=== PATIENT | male | born 1945 | race Caucasian/White ===

== ENCOUNTER 2021-10-09 08:35 | Outpatient (REF) | payer OTHER, BC, SELFPAY ==
--- NOTE | ~2021-10-09 | MR_ITS ---
EXAMINATION: MR BRAIN WITHOUT CONTRAST CLINICAL INFORMATION: Muscle weakness. COMPARISON: None available. TECHNIQUE: MRI of the brain was obtained using routine sequences without contrast. FINDINGS: Moderately motion degraded exam. No focal restricted diffusion is demonstrated to suggest acute or subacute cerebral ischemia. No evidence of acute or chronic hemorrhagic products on heme-sensitive imaging. Basal ganglia mineralization. Scattered periventricular and deep white matter T2 FLAIR hyperintensities consistent with mild underlying microangiopathy. Proportional prominence of the ventricles and sulcal spaces without evidence of obstructive hydrocephalus. No abnormal mass effect. No midline shift. Normal appearance of the pituitary gland. Normal positioning of the cerebellar tonsils. Normal arterial and venous vascular flow voids are present. Normal, homogeneous marrow signal. Moderate degenerative spondyloarthropathy of the visualized upper cervical spine. Mucous retention cyst within the left maxillary sinus. Mild mucosal thickening of the remaining paranasal sinuses. No signal abnormalities within the mastoids. Bilateral lens extractions. MR/MR head/brain wo con IMPRESSION: 1. No acute intracranial abnormalities. 2. Mild underlying microangiopathy and generalized cerebral volume loss.
== END 2021-10-09 08:36 | disposition home or self-care (01) ==
LOC: HO.MRI 08:35
PROVIDERS: PCP Internal Medicine; Visit Provider Internal Medicine
DX: M62.81 Muscle weakness (generalized) (principal)
CPT/HCPCS: 70551

== ENCOUNTER 2022-02-21 06:49 | Outpatient (REF) | payer OTHER, BC, SELFPAY ==
[2022-02-26 14:46] LABS: Metanephrine, Free 81 pg/mL (<=57); Normetanephrines, Free 198 pg/mL (<=148); Total Metanephrine, Free 279 pg/mL (<=205)
== END 2022-02-21 06:50 | disposition home or self-care (01) ==
LOC: HO.LAB 06:49
PROVIDERS: PCP Internal Medicine; Visit Provider Internal Medicine
DX: R61 Generalized hyperhidrosis (principal)
CPT/HCPCS: 36415; 83835

== ENCOUNTER 2022-07-17 16:32 | Outpatient (REF) | payer OTHER, BC, SELFPAY ==
--- NOTE | ~2022-07-17 | MR_ITS ---
EXAMINATION: MR CERVICAL SPINE WITHOUT CONTRAST CLINICAL INFORMATION: Cervical myelopathy. COMPARISON: CT scan of the cervical spine 11/24/2019. TECHNIQUE: MRI of the cervical spine was obtained using routine sequences without contrast. FINDINGS: VERTEBRAL BODIES AND PARASPINAL SOFT TISSUES: There is a mild dextroscoliosis. There is reversal of the normal cervical lordosis, and there is a mild anterolisthesis of C4 on C5. There is marked narrowing of intervertebral disc height at C5-C6 and C6-C7 and there are degenerative endplate contour changes at these levels with minimal edematous signal. These findings appear similar compared to prior imaging. There is mild loss of vertebral body height of T5 and T6, demonstrated on prior imaging. No new Fractures are demonstrated. There is decreased T1 signal from the C5 and C6 vertebrae, corresponding to sclerosis seen on the prior CT scan. There is edematous signal noted in the right C5-C6 facets. Overall, marrow signal is homogenous. The regional soft tissues are unremarkable. CERVICOMEDULLARY JUNCTION AND VISUALIZED POSTERIOR FOSSA: The craniocervical and posterior fossa structures are normal. Accounting for artifact, spinal cord signal appears normal. SPINAL LEVELS: C2-C3: There is severe right and moderate left facet arthropathy. There is a small soft disc protrusion posteriorly in the midline. There is no cord compression or central stenosis. There are small uncovertebral osteophytes, and there is mild bilateral foraminal narrowing. C3-C4: There is fusion of the left C3-C4 facets and there are degenerative changes of the right C3-C4 facet joint. There appears to be partial fusion of the posterior bodies of C3 and C4 comment demonstrated on the CT scan. Posterior disc contour is normal in is no cord compression or central stenosis. There are uncovertebral osteophytes and there is moderate right and mild left foraminal narrowing. C4-C5: There is severe bilateral facet arthropathy. There is a shallow posterior soft disc protrusion which is slightly more prominent on the right but there is no cord compression or central stenosis. There are uncovertebral osteophytes and there is moderate right and mild left foraminal narrowing. C5-C6: There is moderate to severe bilateral facet arthropathy. There is a broad-based posterior disc osteophyte complex which is more prominent centrally and on the left with effacement of CSF around the cord with mild cord compression and there is mild to moderate central stenosis. There are uncovertebral osteophytes and there is severe left and moderate severe right foraminal narrowing. C6-C7: There is moderate bilateral facet arthropathy. There is a broad-based posterior disc osteophyte complex which effaces CSF around the cord, and there is mild central stenosis. There are uncovertebral osteophytes bilaterally and there is severe right and moderate left foraminal narrowing. C7-T1: The facet joints appear normal bilaterally. Posterior disc contour is normal. There is no spinal cord compression or central stenosis. The neural foramina are patent bilaterally. MR/MR cervical spine wo con IMPRESSION: 1. At C5-C6 there is facet arthropathy and there is a broad-based posterior disc osteophyte complex. There is mild cord compression and there is mild to moderate central stenosis. There is severe left and moderate to severe right foraminal narrowing. 2. At C6-C7 there is facet arthropathy and there is a broad-based posterior disc osteophyte complex. There is mild central stenosis. There is severe right and moderate left foraminal narrowing. 3. At C3-C4 there is fusion of the left C3-C4 facets and there are degenerative changes of the right facet joint. There is moderate right and mild left foraminal narrowing. There is no cord compression or central stenosis. 4. At C4-C5 there is severe bilateral facet arthropathy. There is no cord compression or central stenosis. There is moderate right and mild left foraminal narrowing.
== END 2022-07-17 16:33 | disposition home or self-care (01) ==
LOC: HO.MRI 16:32
PROVIDERS: PCP Internal Medicine; Visit Provider Nurse Practitioner Family
DX: G95.9 Disease of spinal cord, unspecified (principal)
CPT/HCPCS: 72141

== ENCOUNTER 2023-05-03 10:08 | Outpatient (REF) | payer OTHER, BC, SELFPAY ==
[2023-05-03 13:26] LABS: MANUAL DIFF FLAG NO
[2023-05-03 13:41] LABS: Basophils Percent Auto 0.3 % (0-2); Eosinophils Absolute Auto 0.8 X10*3/uL (0.0-0.4); Eosinophils Percent Auto 13.6 % (0-4); Hematocrit 37.9 % (42.0-52.0); Hemoglobin 12.3 g/dl (14.0-18.0); Imm Gran Abs Auto 0.04 X10*3/uL (0.00-0.03); Imm Gran Pct Auto 0.7 % (0.0-0.4); Lymphocytes Absolute Auto 1.3 X10*3/uL (1.2-4.9); Lymphocytes Percent Auto 21.3 % (20-40); Mean Corpuscular HGB Conc 32.5 g/dl (31.0-36.0); Mean Corpuscular Hemoglobin 31.4 pg (27.0-33.0); Mean Corpuscular Volume 96.7 fL (80.0-98.0); Mean Platelet Volume 9.7 fL (9.4-12.4); Monocytes Absolute Auto 0.3 X10*3/uL (0.1-1.2); Monocytes Percent Auto 5.3 % (2-11); Neutrophils Absolute Auto 3.5 x10*3/uL (2.0-8.3); Neutrophils Percent Auto 58.8 % (45-73); Platelet Count 287 X10*3/uL (160-400); Red Blood Count 3.92 X10*6/uL (4.60-5.80); Red Cell Distribution Width 13.5 % (11.0-16.0); White Blood Count 5.9 X10*3/uL (4.8-10.8)
[2023-05-03 14:08] LABS: Alanine Aminotransferase 10 U/L (0-40); Albumin Level 3.8 g/dL (3.5-5.0); Alkaline Phosphatase 72 U/L (39-117); Anion Gap 12 (12-20); Aspartate Amino Transferase 20 U/L (5-37); Bilirubin Total 0.7 mg/dL (0.0-1.0); Blood Urea Nitrogen 16 mg/dL (9-16); Calcium 9.4 mg/dL (8.4-10.2); Carbon Dioxide 26 mmol/L (22-29); Chloride 105 mmol/L (96-108); Estimated Glomerular Filt Rate 55; Glucose Random 146 mg/dL (60-115); Magnesium 2.1 mg/dL (1.6-2.6); Potassium 3.9 mmol/L (3.3-5.1); Sodium 139 mmol/L (135-145); Total Protein 6.5 g/dL (6.5-8.0)
[2023-05-03 14:14] LABS: Insulin 69 uU/mL (2-29); Vitamin D 25-OH Total 22.4 ng/mL (>30)
[2023-05-03 14:30] LABS: Vitamin B12 209 pg/mL (200-900)
[2023-05-04 08:04] LABS: C Peptide 10.24 ng/mL (0.80-3.85)
== END 2023-05-03 10:09 | disposition home or self-care (01) ==
LOC: HO.MANLDS 10:08
PROVIDERS: Visit Provider Internal Medicine
DX: I12.9 Hypertensive chronic kidney disease with stage 1 through stage 4 chronic kidney disease, or unspecified chronic kidney disease (principal); N18.9 Chronic kidney disease, unspecified; E16.2 Hypoglycemia, unspecified; E53.8 Deficiency of other specified B group vitamins
CPT/HCPCS: 36415; 80053; 82306; 82607; 83525; 83735; 84681; 85025

== ENCOUNTER 2023-05-24 08:24 | Outpatient (REF) | payer OTHER, BC, SELFPAY ==
[2023-05-24 14:02] LABS: Estimated Average Glucose 111 mg/dL; Hemoglobin A1c % 5.5 % (<6.0)
[2023-05-24 14:41] LABS: Insulin 28 uU/mL (2-29)
== END 2023-05-24 08:25 | disposition home or self-care (01) ==
LOC: HO.MANLDS 08:24
PROVIDERS: Visit Provider Internal Medicine
DX: E88.819 Insulin resistance, unspecified (principal)
CPT/HCPCS: 36415; 83036; 83525

== ENCOUNTER 2023-07-05 14:48 | Outpatient (AMB) | payer OTHER, BC, SELFPAY ==
--- NOTE | 2023-07-05 14:59 | A.SPINEOV_ITS ---
Intake Intake Visit Reasons: Neck pain Intake Note: Mr. Paniagua is here today c/o neck pain. 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 He is accompanied by his who works as a nurse in our preop department here at [facility]. He comes in today with a chief complaint of neck pain, lightheadedness, and constant headaches. He reports a pertinent medical history of a C4-5 and C5-6 posterior decompression completed [address] Tolentino at [facility]. In addition to this, he reports associated symptoms of balance issues and difficulty walking. He reports that he has no radiation of pain down either of his upper extremities, and that his pain is well localized to his neck near the surgical incision site. He has no numbness, tingling, burning, or significant weakness that he is aware of. He has been to physical therapy twice since his previous surgeries with Dr. Tolention and reports it was not helpful at all. He also states that he had cortisone injections in his neck completed at [facility] with little to no relief from these injections. He is now at the point where his headaches, lightheadedness, and neck pain is significantly impacting his activities of daily living and causing him distress throughout the day. He would like to pursue a surgical intervention for these issues. PMH: History of bladder cancer with TURP procedure. History of heart attack 5 years ago 2 stents placed. BPH, hypertension. Social hx: Patient does not smoke, reports no substance use Medications: Baby aspirin, amlodipine, carvedilol, Flomax. Allergies: Anaphylaxis reaction to bee stings. Physical exam: The patient has 5/5 strength in his upper and lower extremities. His sensation is grossly intact. His reflexes are 2+ intact. He ambulates with a somewhat antalgic gait but overall is able to walk well. He rises from a seated position without difficulty. (-) Agrawal's, (-) clonus. Imaging review: MRI of the cervical spine completed at [facility] shows evidence of a posterior laminectomy from C3 to C6. There is severe degenerative disc disease at C5-6 and C6-7. The vertebral body at C5 and C6 both appear to be significantly degenerated. There is severe left-sided foraminal stenosis at C5-6 and mild-moderate central canal stenosis at C6-7. There also appears to be a possible synovial cyst impinging on the C6 nerve root on the left. There is no notable cord signal change Impression: Toro is a pleasant 78-year-old male who comes in today with a chief complaint of neck pain with accompanying neurological symptoms which he reports are headaches, lightheadedness, and loss of balance. He reports no radiculopathy down either of his upper extremities. His MRI shows severe loss of disc height and degeneration at C5-6 and C6-7. He also has some significant stenosis on the left but has no symptoms to accompany this. His x-ray imaging from today does not reveal any spondylolisthesis. His neck pain very well could be coming from the vertebral body degeneration described above at C5 and C6, accompanied by the significant loss of disc height. I will discuss his MRI findings and clinical history with Dr. Roach next week when we review cases and will call the patient back with a answer regarding a surgical intervention to help mitigate his symptoms. We did discuss what both in ACDF and cervical corpectomy would entail if either were to be offered by Dr. Roach. We did discuss that if a surgical intervention was offered it would be to address his pain, and would likely have no benefit in regards to his headaches or lightheadedness. Thank you for allowing us to care for your patient. The total time spent with this visit with this patient was MRI minutes reviewing history, physical exam, 45 imaging review, and implementation of treatment plan or further diagnostic testing Adryan Roach MD,PhD [facility] Orders: Orders XR cervical spine 4V Today M54.2 - Cervicalgia Coding Level of Care Code New Pt Level 4 (01570) Diagnoses Cervicalgia M54.2
== END 2023-07-05 16:06 | disposition home or self-care (01) ==
PROVIDERS: PCP Internal Medicine; Visit Provider Physician Assistant
DX: M54.2 Cervicalgia (principal)
CPT/HCPCS: 99204

== ENCOUNTER 2023-07-05 14:48 | Outpatient (REF) | payer OTHER, BC, SELFPAY ==
--- NOTE | ~2023-07-05 | XR_ITS ---
EXAMINATION: XR CERVICAL SPINE CLINICAL INFORMATION: Cervicalgia COMPARISON: Cervical spine 09/10/2019 TECHNIQUE: AP, lateral, lateral flexion and extension and open-mouth odontoid and Fuchs views were obtained. FINDINGS: There is no fracture. Prevertebral soft tissues are within normal limits. There is marked disc space narrowing of C5-C6 and C6-C7 with marginal osteophyte formation. There is approximately 4 mm anterior subluxation of C4 respect to C5. This is without significant change on flexion views though decreases slightly on extension views. There is facet arthropathy C4-C7 bilaterally. XR/XR cervical spine 4V IMPRESSION: 1. Marked degenerative disc disease at C5-C6 and C6-C7. 2. Approximately 4 mm anterior subluxation of C4 respect to C5, as discussed above.
== END 2023-07-05 14:49 | disposition home or self-care (01) ==
LOC: HO.HOSX 14:48
PROVIDERS: PCP Internal Medicine; Visit Provider Physician Assistant
DX: M54.2 Cervicalgia (principal)
CPT/HCPCS: 72050

== ENCOUNTER 2023-08-06 07:35 | Outpatient (REF) | payer OTHER, MEDICARE, SELFPAY ==
--- NOTE | ~2023-08-06 | CT_ITS ---
CT CERVICAL SPINE WITHOUT CONTRAST HISTORY: Prior laminectomy cervicalgia TECHNIQUE: CT images of the cervical spine were acquired without intravenous contrast. This CT examination was performed using dose optimization techniques as appropriate, variously including the following: *Automated exposure control *Adjustment of mA and/or kV according to patient size (this includes techniques or standardized protocols for targeted exams where dose is matched to indication/reason for exam; i.e. extremities or head) *Use of iterative reconstruction technique DLP: 442.3 mGy-cm COMPARISON: MRI cervical spine 07/17/2022 FINDINGS: Severe hypertrophic degenerative changes across the anterior atlantodental interval with significant osseous remodeling and thinning of the anterior arch of C1. Reversal of the lower cervical lordosis. Stable grade 1 anterolisthesis at C4-C5, slight retrolisthesis at C2-C3, and trace anterolisthesis at C3-C4. Stable mild chronic height loss and anterior wedging of the C5 vertebral body. Prominent eburnation of the C5 and C6 vertebral bodies and to a lesser extent along the C7 upper endplate with multilevel scattered Schmorl's nodes and pneumatocysts. Stable disc height loss, most pronounced and severe at C5-C6 and C6-C7 and moderate to severe at C3-C4 and C2-C3. Osseous fusion across the C3-C4 disc space. Please note canal patency is not well assessed on this examination due to inherent limitations of CT without intrathecal contrast. Within these limitations, multilevel degenerative changes are unchanged with level by level detail are as follows: C2-C3: Small central disc osteophyte protrusion, disc osteophyte complex, bilateral uncovertebral joint hypertrophy, severe right and milder left facet arthrosis. No spinal canal stenosis. Patent neural foramina. C3-C4: Disc osteophyte complex with bilateral uncovertebral joint hypertrophy and severe bilateral facet arthrosis with associated ankylosis on the left and chronic height loss of the left C3 articular pillar. No spinal canal stenosis. Mild right greater than left neural foraminal narrowing. C4-C5: Uncovered posterior disc/pseudodisc bulge, bilateral uncovertebral spurring, and severe bilateral facet arthrosis. No spinal canal stenosis. Mild right without significant left neural foraminal encroachment. C5-C6: Disc osteophyte complex with bilateral uncovertebral joint hypertrophy and bilateral facet arthrosis. Mild spinal canal stenosis with mass effect along the ventral cord, severe left and moderate right neural foraminal stenosis. C6-C7: Prior left C6 laminectomy. Disc osteophyte complex with bilateral uncovertebral joint hypertrophy and bilateral facet arthrosis. Mild spinal canal, severe right and moderate to severe left neural foraminal stenosis. C7-T1: Artifact through this level limits diagnostic assessment. No bony spinal canal or foraminal stenosis. Patent neural foramina. No significant abnormalities of the paraspinal musculature. Biapical pleural-parenchymal scarring. The visualized intracranial structures are normal. Mucosal disease in the right maxillary sinus. Cerumen within the left EAC. Calcific plaque of the bilateral carotid bifurcations. Retropharyngeal course of the distal right common carotid and proximal right internal carotid arteries. Elongated and ossified styloid processes can be correlated clinically for signs of Newhalen syndrome. CT/CT cervical spine wo IV con IMPRESSION: 1. Multilevel cervical spondylosis is unchanged compared to MRI from 07/17/2022. Canal patency is not well assessed on this examination due to inherent limitations of CT without intrathecal contrast. Within these limitations, there is mild spinal canal stenosis at C5-C6 greater than C6-C7 with mass effect along the ventral cord at C5-C6. Multilevel the great neural foraminal narrowing. 2. Elongated and ossified styloid processes can be correlated clinically for signs of [place]halen syndrome.
== END 2023-08-06 07:36 | disposition home or self-care (01) ==
LOC: HO.CT 07:35
PROVIDERS: PCP Internal Medicine; Visit Provider Physician Assistant
DX: M54.2 Cervicalgia (principal)
CPT/HCPCS: 72125

== ENCOUNTER 2023-08-27 14:46 | Outpatient (AMB) | payer OTHER, MEDICARE, SELFPAY ==
--- NOTE | 2023-08-27 14:58 | A.SPINEOV_ITS ---
Intake Visit Reasons: Discuss sx Intake Note: Mr. Paniagua is here today to Discuss sx. 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 Paniagua comes in today for a subsequent follow-up visit after having his CT scan completed. His CT scan imaging shows severe degeneration of C5-C7 with the worst two levels being C5 & C6. He has quite a bit of anterior osteophyte growth as well. Surprisingly, these levels are not auto fused although there is severe degenerative disc disease causing [id number] between these vertebral bodies. I reviewed this imaging with Dr. Roach who was willing to offer the patient a cervical corpectomy to address his neck pain. He estimates that there is a 60-70% chance of pain relief if we do decide to pursue this surgery. I informed Toro again that this surgery would not be meant to address his neurological symptoms or his balance related issues. This information was related to the patient, and we discussed the severity of his symptoms. At this time the patient states he feels as though he can not go on living the way that he is currently living, and feels as though something must be done. I met with both him and his during this visit, and answered all their questions to the best of my ability. We thoroughly reviewed his CT scan, discussed his previous surgery, and also looked at his MRI imaging. I do believe that there is a high likelihood that the cervical vertebral bodies at the above-mentioned levels are pain generators given the severe degeneration noted on various forms of imaging. He will discuss the possibility of having the surgery completed with his and call the office to get back to us food like to book this surgery. Total amount of time spent in this visit was 20 minutes in discussion of symptoms, CT scan imaging results and subsequent plan of care. Adryanryland Roach MD,PhD [facility] Coding Level of Care Code Est Pt Level 3 (62025) Diagnoses Cervicalgia M54.2
== END 2023-08-27 15:50 | disposition home or self-care (01) ==
PROVIDERS: PCP Internal Medicine; Visit Provider Physician Assistant
DX: M54.2 Cervicalgia (principal)
CPT/HCPCS: 99213

== ENCOUNTER → 2023-08-27 14:46 | Outpatient (BNVA) | payer OTHER, MEDICARE, SELFPAY | PROVIDERS: PCP Internal Medicine; Visit Provider Physician Assistant ==

== ENCOUNTER 2024-01-23 09:15 | Outpatient (REF) | payer OTHER, MEDICARE, SELFPAY ==
[2024-01-23 10:43] LABS: Cholesterol 150 mg/dL (<200); HDL Cholesterol 37 mg/dL (>40); LDL Cholesterol Calculated 96 mg/dL (<100); Triglycerides 88 mg/dL (<150)
== END 2024-01-23 09:16 | disposition home or self-care (01) ==
LOC: HO.LAB 09:15
PROVIDERS: PCP Internal Medicine; Visit Provider Internal Medicine Cardiovascular Disease
DX: Z79.899 Other long term (current) drug therapy (principal)
CPT/HCPCS: 36415; 80061

== ENCOUNTER 2024-05-05 08:16 | Outpatient (REF) | payer OTHER, MEDICARE, SELFPAY ==
[2024-05-05 08:30] LABS: MANUAL DIFF FLAG NO
[2024-05-05 09:23] LABS: Basophils Absolute Auto 0.1 X10*3/uL (0.0-0.2); Basophils Percent Auto 0.7 % (0-2); Eosinophils Percent Auto 14.7 % (0-4); Hematocrit 36.6 % (42.0-52.0); Hemoglobin 12.3 g/dl (14.0-18.0); Imm Gran Abs Auto 0.03 X10*3/uL (0.00-0.03); Imm Gran Pct Auto 0.4 % (0.0-0.4); Lymphocytes Absolute Auto 1.4 X10*3/uL (1.2-4.9); Lymphocytes Percent Auto 20.6 % (20-40); Mean Corpuscular HGB Conc 33.6 g/dl (31.0-36.0); Mean Corpuscular Hemoglobin 31.6 pg (27.0-33.0); Mean Corpuscular Volume 94.1 fL (80.0-98.0); Mean Platelet Volume 9.7 fL (9.4-12.4); Monocytes Absolute Auto 0.5 X10*3/uL (0.1-1.2); Neutrophils Percent Auto 56.6 % (45-73); Platelet Count 288 X10*3/uL (160-400); Red Blood Count 3.89 X10*6/uL (4.60-5.80); Red Cell Distribution Width 13.7 % (11.0-16.0)
[2024-05-05 09:51] LABS: Alanine Aminotransferase 11 U/L (0-40); Albumin Level 4.1 g/dL (3.5-5.0); Alkaline Phosphatase 81 U/L (39-117); Anion Gap 10 (12-20); Aspartate Amino Transferase 23 U/L (5-37); Bilirubin Total 0.5 mg/dL (0.0-1.0); Blood Urea Nitrogen 18 mg/dL (9-16); Calcium 9.5 mg/dL (8.4-10.2); Carbon Dioxide 28 mmol/L (22-29); Chloride 108 mmol/L (96-108); Estimated Glomerular Filt Rate 55; Glucose Random 101 mg/dL (60-115); Potassium 4.7 mmol/L (3.3-5.1); Sodium 141 mmol/L (135-145); Total Protein 7.1 g/dL (6.5-8.0)
[2024-05-05 10:11] LABS: Insulin 6 uU/mL (2-29)
[2024-05-05 10:33] LABS: Estimated Average Glucose 114 mg/dL; Hemoglobin A1C 119.4631 umol/L; Hemoglobin A1c % 5.6 % (<6.0)
[2024-05-06 05:43] LABS: C Peptide 2.53 ng/mL (0.80-3.85)
[2024-05-09 23:38] LABS: Proinsulin 4.1 pmol/L (< OR = 18.8)
== END 2024-05-05 08:17 | disposition home or self-care (01) ==
LOC: HO.LAB 08:16
PROVIDERS: PCP Internal Medicine; Visit Provider Internal Medicine
DX: E16.2 Hypoglycemia, unspecified (principal)
CPT/HCPCS: 36415; 80053; 83036; 83525; 84206; 84681; 85025

== ENCOUNTER 2024-08-20 09:48 | Outpatient (AMB) | payer OTHER, MEDICARE, SELFPAY ==
--- NOTE | 2024-08-20 09:51 | MHC.OFFVIS ---
Vital Signs 08/20/24 09:52 Height 6 ft Weight 167 lb 5.294 oz BMI 22.7 BP 134/62 Blood Pressure Location Lt brachial Position Sitting Pulse 105 H Pulse Source Pulse Oximeter Pulse Oximetry (%) 85 L Oxygen Delivery Method Room Air Intake Visit Reasons: Hypoglycemia Intake Note: New patient externally referred for Hypoglycemia. Battery Tester Field Required: No Accompanied by: Self / Same As Patient Allergies bee pollen [BEE STINGS] Allergy (Severe, Unverified 08/20/24 09:55) ANAPHYLAXIS acetaminophen [From VICODIN] Allergy (Mild, Unverified 08/20/24 09:55) ITCHY hydrocodone [From VICODIN] Allergy (Mild, Unverified 08/20/24 09:55) ITCHY oxycodone [From PERCOCET] Allergy (Mild, Unverified 08/20/24 09:55) ITCHY Medication List - Last Reconciled 08/20/24 by Anabell Whitaker MD amlodipine 5 mg PO DAILY aspirin 81 mg PO DAILY carvedilol 3.125 mg PO BID tamsulosin mg PO HPI Comments Details: 79-year-old male here today for initial evaluation of hypoglycemia. Since 3-4 years, Complaining of spells of lightheadedness , paresthesias in hands, floaters , increased diaphoresis , clammy, Blurry vision, seen eye doctor, exam was unremarkable. munches on chocolates, salt, episodes get better in 20 mins. Patient brought in log book reviewed : variable blood sugars recorded by meter but a few episodes of hypoglycemia noted Apr 2024 at May 30 one episode of 50. other few episodes of blood sugars in 40s to 50s here and there, but mostly otherwise in 60s to 70s. Unrelated to food intake or fasting, can happen any time of the day. Active and doing well otherwise. No history of liver disease CKD stage 3a, from HTN? EGFR 55. 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 Quit tobacco use at age 27 smokes marijuana Retired from [employer] job Past medical history CAD s/p PCI 2021 HTN Prediabetes Bladder cancer s.p chemo and surgery with history of recurrence , now in remission Past surgical history Back surgeries hiatal Hernia repair Left hip replacement Knee repairs Bladder cancer resection Family history Father : CAD Sister : breast cancer Physical exam General: sitting comfortably in no acute distress HEENT: normocephalic/atraumatic, moist oral mucosa Neck: supple Cardiac: normal heart sounds Pulm: normal breath sounds B/L, no added breath sounds Abd: not distended, no tenderness Extremities: no edema, no signs of myxedema Neuro: AAO x3, Speech: normal, no facial droop, moving all 4 extremities Skin: no rash Laboratory Tests 04/27/18 09/10/19 05/03/23 08:41 10:13 10:12 Random Glucose 112 104 146 H Estimat Average Glucose Hemoglobin A1c % 05/24/23 05/05/24 08:26 08:28 Random Glucose 101 Estimat Average Glucose 111 114 Hemoglobin A1c % 5.5 5.6 Laboratory Tests 02/21/22 06:54 Plasma Free Metaneph 81 H Plasma Free Normeta 198 H Plas Total Metaneph 279 H REPLACED BY [facility] Medical History (Updated 08/20/24 @ 10:49 by Anabell Whitaker MD) Hypoglycemia Elevated plasma metanephrines Physical Exam Vital Signs: Last Vital Signs Pulse 105 H 08/20/24 09:52 BP 134/62 08/20/24 09:52 Pulse Ox 85 L 08/20/24 09:52 Oxygen Delivery Method Room Air 08/20/24 09:52 BMI result Body Mass Index 22.7 Assessment & Plan Assessment & Plan (1) Elevated plasma metanephrines: Code(s): R79.89 - Other specified abnormal findings of blood chemistry Category: Medical Plan: See below (2) Hypoglycemia: Code(s): E16.2 - Hypoglycemia, unspecified Category: Medical Plan: 79-year-old male with a history of CAD status post PCI, history of bladder cancer status post resection and chemotherapy, hypertension who is here today to establish care for concerns of hypoglycemia. He has been having spells of lightheadedness/dizziness, diaphoresis, clamminess, palpitations with no relation to food intake, and no relation to timing, for the past 3-4 years. He has a blood glucose meter, no history of diabetes mellitus, and he has been recording his episodes and some blood glucose readings were noted to be low in the 40s and 50s, otherwise during some episodes blood sugars were normal. He does report improvement within 20 minutes after he eats sugary and salty snacks. 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 He has had hypoglycemia panel done in April 2024 however his blood sugar was normal so that is not useful. He is not on any medications that cause hypoglycemia. No history of liver disease. He does have CKD stage IIIA per his last EGFR of 55, likely due to history of hypertension? He is not on any insulin, denies any exposure to diabetic medications at home. Though his is a nurse. No alcohol use. He is otherwise healthy. He also has mildly elevated plasma metanephrine and normetanephrine levels from 2021, we will repeat these. I have also asked him to perform an overnight fast after supper/dinner and do blood work in the morning. Safety instructions provided. Hypoglycemia education done. Plan: -ordered plasma metanephrine normetanephrine levels. -ordered fasting hypoglycemia panel -continue to log episodes with blood glucose readings and bring glucometer and log to next appointment -asked him to try frequent small meals with higher focus on protein intake to see if he has a improvement in episodes Plan I spent 60 minutes in reviewing the record, seeing the patient and documenting in the medical record. Orders: Orders Metanephrines, Plasma Today R79.89 - Other specified abnormal findings of blood chemistry Adrenocorticotropic Hormone 08/24/24 E16.2 - Hypoglycemia, unspecified Insulin 08/24/24 E16.2 - Hypoglycemia, unspecified Insulinoma associated 2 aatb 08/24/24 E16.2 - Hypoglycemia, unspecified Insulin Auto Antibody 08/24/24 E16.2 - Hypoglycemia, unspecified Insulin Growth Factor 2 08/24/24 E16.2 - Hypoglycemia, unspecified C Peptide 08/24/24 E16.2 - Hypoglycemia, unspecified Basic Metabolic Panel 08/24/24 E16.2 - Hypoglycemia, unspecified Glucose Random 08/24/24 E16.2 - Hypoglycemia, unspecified Cortisol Random 08/24/24 E16.2 - Hypoglycemia, unspecified Proinsulin 08/24/24 E16.2 - Hypoglycemia, unspecified TSH reflex Free T4 08/24/24 E16.2 - Hypoglycemia, unspecified Hypoglycemic Panel 08/24/24 E16.2 - Hypoglycemia, unspecified Patient Instructions: DO blood work today Maintain a log of your episodes including time, meal taken before or after , symptoms Please bring this log along with your glucometer to next appointment Please do a set of fasting blood work by stopping food intake after dinner and then doing blood work at 8 or 9 AM Check your fingerstick in the car prior to blood work , if not less than 65, please either wait for sugar to become lower or as soon as symtoms okay Please take your partner/friend to drive you to the lab, dont drive yourself Keep your glucose tablets or candy with you to correct the hypoglycemia one the blood is drawn Stop eating candies when not hypoglycemic, incorporate small frequent meals in yourdiet concentrating on getting more protein Correction of hypoglycemia when blood sugar is less than 70 Rule of 15 Treatment for Hypoglycemia (Low blood sugar) If your blood glucose is low (70 and below)*, follow the steps below to treat: Eat or drink something from the list below equal to 15 grams of carbohydrate (carb). Rest for 15 minutes Re-check your blood glucose. If it is still low, (below 70), repeat step 1 above. If your next meal is more than an hour away, you will need to eat one carbohydrate choice as a snack to keep your blood glucose from going low again. If you can't figure out why you have low blood glucose, call your healthcare provider, as your medicine may need to be adjusted. Always carry something with you to treat an insulin reaction. Use food from the list below. Foods equal to One Carbohydrate Choice (15 grams of carbohydrate): 3 Glucose tablets or 4 Dextrose tablets 4 ounces of fruit juice 5-6 ounces (about 1/2 can) of regular soda such as Coke or Pepsi 7-8 gummy or regular Life Savers 1 Tbsp. of sugar or jelly NOTE: If your blood sugar is less than 50, double the portion above for a total of 30 gm. Carbohydrate. Follow meal plan of 45-60 g of consistent carbohydrates at 3 meals each day and 15 g of carbohydrate at 1-2 snacks each day. Coding Level of Care Code New Pt Level 5 (12935) Diagnoses Elevated plasma metanephrines R79.89 Hypoglycemia E16.2 Time Spent (min) 60
[2024-08-20 09:52] VITALS: BP 134/62; PULSE 105; O2SAT 85; BMI 22.7
--- OUTSIDE RECORDS SUMMARY | 2024-08-20 11:22 | XMS_ITS | Data Portability ---
Author Organization [facility] Home Service Address [address] [place] [address] Assessment Encounter Date Assessment Date Assessment LastModified by Organization Details LastModified Time 08/25/2021 08/25/2021 [id number] [place] [id number] (FEATHER MAKER) [facility] MODERATE MUST MEET 2 OUT OF 3 ELEMENTS: PROBLEMS, DATA OR RISK ELEMENT 1: PROBLEMS ADDRESSED 1 OR MORE CHRONIC ILLNESS WITH EXACERBATION OR 2 OR MORE STABLE CHRONIC ILLNESSES OR 1 UNDIAGNOSED NEW PROBLEM OR 1 ACUTE ILLNESS W/SYMPTOMS OR 1 ACUTE COMPLICATED INJURY ELEMENT 2: DATA MUST MEET 1 OF 3 CATEGORIES CATEGORY 1: REVIEW OF PRIOR EXTERNAL NOTES, REVIEW OF RESULTS, ORDERING OF EACH TEST, ASSESSMENT REQUIRING INDEPENDENT HISTORIAN OR CATEGORY 2: INDEPENDENT INTERPRETATION OF TESTS BY ANOTHER PHYSICIAN OR SPECIALIST OR CATEGORY 3: DISCUSSION OF MGT OR TEST INTERPRETATION W/EXTERNAL PHYSICIAN OR SPECIALIST ELEMENT 3: RISK RISK OF COMPLICATIONS AND/OR MORBIDITY OR MORTALITY OF PATIENT MANAGEMENT PROVIDER MUST THOROUGHLY DOCUMENT EACH ELEMENT THAT IS COVERED Not available 08/25/2021 15:45:39 01/26/2022 01/26/2022 [id number] [place] [id number] (FEATHER MAKER) [facility] MODERATE MUST MEET 2 OUT OF 3 ELEMENTS: PROBLEMS, DATA OR RISK ELEMENT 1: PROBLEMS ADDRESSED 1 OR MORE CHRONIC ILLNESS WITH EXACERBATION OR 2 OR MORE STABLE CHRONIC ILLNESSES OR 1 UNDIAGNOSED NEW PROBLEM OR 1 ACUTE ILLNESS W/SYMPTOMS OR 1 ACUTE COMPLICATED INJURY ELEMENT 2: DATA MUST MEET 1 OF 3 CATEGORIES CATEGORY 1: REVIEW OF PRIOR EXTERNAL NOTES, REVIEW OF RESULTS, ORDERING OF EACH TEST, ASSESSMENT REQUIRING INDEPENDENT HISTORIAN OR CATEGORY 2: INDEPENDENT INTERPRETATION OF TESTS BY ANOTHER PHYSICIAN OR SPECIALIST OR CATEGORY 3: DISCUSSION OF MGT OR TEST INTERPRETATION W/EXTERNAL PHYSICIAN OR SPECIALIST ELEMENT 3: RISK RISK OF COMPLICATIONS AND/OR MORBIDITY OR MORTALITY OF PATIENT MANAGEMENT PROVIDER MUST THOROUGHLY DOCUMENT EACH ELEMENT THAT IS COVERED Not available 01/26/2022 15:45:50 04/26/2023 04/26/2023 [id number] [place] [id number] (FEATHER MAKER) : MDM LOW MUST MEET 2 OF 3 ELEMENTS: PROBLEMS, DATA OR RISK ELEMENT 1: PROBLEMS ADDRESSED (LOW): 2 OR MORE SELF-LIMITED OR MINOR PROBLEMS OR 1 STABLE CHRONIC ILLNESS OR 1 ACUTE UNCOMPLICATED ILLNESS OR INJURY ELEMENT 2: DATA TO BE REVISED AND ANALYZED (LOW) MUST MEET 1 OF 2 CATEGORIES: CATEGORY 1. REVIEW OF PRIOR EXTERNAL NOTES/RESULTS, ORDERING OF TEST(S) CATEGORY 2. ASSESSMENT REQUIRING INDEPENDENT HISTORIAN(S) INCLUDE WHO THE HISTORIAN IS AND RELATION TO PT AND WHY PT IS UNABLE TO GIVE COMPLETE HISTORY ELEMENT 3: RISK (LOW) RISK OF COMPLICATIONS AND/OR MORBIDITY OR MORTALITY OF PATIENT MANAGEMENT PROVIDER MUST THOROUGHLY DOCUMENT ALL OF THE ELEMENTS COVERED Not available 04/26/2023 10:59:28 Plan of Treatment Reminders Order Date Submit Date Provider Last Modified By Organization Details Last Modified Time Details Appointments None recorded. Lab magnesium, serum or plasma 2022 023 [facility], [address] [place] [address], [address], 3 11:05:17 CMP, serum or plasma 2022 023 [facility], [address] [place] [address], [address], 4 11:10:32 vitamin D, 25-hydroxy , total, serum 2022 023 [facility], [address] [place] [address], [address], 3 10:09:14 vitamin B12, serum 2022 023 [facility], [address] [place] [address], [address], 3 11:05:18 insulin, serum 2022 023 [facility], [address] [place] [address], [address], 3 11:05:18 BMP, serum or plasma 2022 023 [facility], [address] [place] [address], [address], 3 11:05:17 CBC w/ auto diff 2022 023 [facility], [address] [place] [address], [address], 3 11:05:17 C-peptide, serum 2022 023 [facility], [address] [place] [address], [address], 3 11:05:17 metanephri ne, fractionat ed, free, serum or plasma 2021 022 [facility], [address] [place] [address], [address], 2 15:50:33 Referral ophthalmol ogist referral - absolutely strange visual acuity issues 2021 022 [email or web address] 10 Peg Harrison MD, [address], [address], 2 08:21:30 Procedures None recorded. Surgeries None recorded. Imaging None recorded. Medication Orders None recorded. Patient TargetsNo targets recorded. 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 [address] [place], [address], 10/16/2021 09:22:52 06/03/19 24 05/30/2023 CT, abdom en + pelvi s, w/wo contr ast No observ ation record ed. [facility] - Stat [address] [place], [address], 06/04/2023 06:43:09 06/07/19 24 05/30/2023 CT, abdom en + pelvi s, w/wo contr ast No observ ation record ed. [address], [place], [address], 06/09/2023 08:25:56 07/08/19 24 07/05/2023 XR, cervi yasmin spine , 1 view No observ ation record ed. [address] [place], [address], 07/08/2023 15:41:36 08/16/19 24 08/06/2023 CT, cervi yasmin spine , w/o contr ast No observ [facility] [address] [place], [address], 08/17/2023 10:31:14 Result Notes None recorded. Problems Name Problem SNOMED Code Status Onset Date Resolution Date Notes Provider Name and Address Organization Details Recorded Time Benign prostatic hyperplas ia 383989169 Active 2017 JERONIMO [facility] 8 08:25:22 Allergic rhinitis 04301702 Active 2017 Jinny crews [facility] 8 08:25:59 Coronary arteriosc lerosis 00678437 [facility] 08[facility]08 History of angioplas ty 132012165 Active 2017 Jinny crews [facility] 8 08:26:14 Hypertens bettye disorder 32742834 Active 2017 Jinny crews [facility] 8 08:26:18 Hyperchol esterolem ia 07690559 Active 2017 Jinny crews [facility] 8 08:26:25 Kidney stone 23264978 Active 2017 Jinny crews [facility] 8 08:26:30 Steatosis of liver 318322513 Active 2017 Jinny crews [facility] 8 08:26:38 Alcoholis m 7307927 Active 2017 quit 12 years ago KODY FRENCH [address] [place] [address], [place], [address], [facility] 0 12:08:56 Trammell's esophagus 118339654 Active 2017 Jinny crews [facility] 8 08:26:56 Gastroeso phageal reflux disease 177208725 Active 2017 Jinny crews [facility] 8 08:27:04 Arthritis 1538680 Active 2017 Jinny crews [facility] 8 08:27:11 Cobalamin deficienc y 128533200 Active 2017 Jinny crews [facility] 8 08:27:18 Vertigo 118359480 Active 2017 Jinny crews [facility] 8 08:27:24 Migraine 87118850 Active 2017 Jinny crews [facility] 8 08:27:30 Chronic kidney disease 016333412 Active 2017 Jinny crews [facility] 8 08:27:46 History of tobacco use 639914395252 3 Active 2017 quit at age 28 Jinny crews [facility] 8 08:28:[address] segment elevation myocardia l infarctio n 742229493 Active 2018 S/P BRYANT [address], [address], [facility] 9 15:51:48 Malignant neoplasm of urinary bladder 068070356 Active [address], [address], [facility] 9 15:54:22 Costal chondriti s 54386466 Active 2018 Aguilar Taylor [address], [address], [facility] 9 12:37:35 Ataxia 41504517 Active 2021 Aguilar Taylor DO [address] [place] [address], [address], [facility] 2 15:44:40 Excessive sweating 26715954 Active 2021 Aguilar Taylor DO [address] [place] [address], [address], [facility] 2 15:44:57 Dizziness 177711067 Active 2021 Aguilar Taylor DO [address] [place] [address], [address], [facility] 2 15:45:47 Muscle weakness of limb 588401711 Active 2021 Aguilar Taylor DO [address] [place] [address], [address], [facility] 2 15:46:07 Tremor 24351141 Active 2021 Aguilar BridgettSouleymane Taylor, DO [address] [place] [address], [address], [facility] 2 15:45:59 Reduced visual acuity 36406685 Active 2021 Aguilar BridgettSouleymane Taylor, DO [address] [place] [address], [address], [facility] 2 15:47:13 Hypoglyce alejandro 077884840 Active 2022 Aguilar BridgettSouleymane Taylor, DO [address] [place] [address], [address], [facility] 3 11:00:47 Insulin resistanc e 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 Procedures Surgical History None recorded. Imaging Results Imaging Date Name Status LastModified by Organiz ation Details LastModified Time 10/09/2021 MRI, brain, w/o contrast completed [facility] (Medical Records) [address] [place], [address], 10/16/2021 09:22:52 05/30/2023 CT, abdomen + pelvis, w/wo contrast [facility] [address] [place] [address], [address], 06/04/2023 06:43:09 05/30/2023 CT, abdomen + pelvis, w/wo contrast completed [address], [place], [address], 06/09/2023 08:25:56 07/05/2023 XR, cervical spine, 1 view completed [address] [place], [address], 07/08/2023 15:41:36 08/06/2023 CT, cervical spine, w/o contrast completed [facility] (Medical Records) [address] [facility], [place], [address], 08/17/2023 10:31:14 Procedure Notes None recorded. Medical Equipment None Reported. Allergies Allergen ID Allergen Name Allergen Category Reaction Reaction Severity Criticality Documentation Date Start Date Code Code System Note Provider Name and Address Organization Details Recorded Time 2079 honey bee venom medicatio n Not available Not available Not available 12/11/2017 67595 7 RxNorm Jinny crews [facility] 8 08:21:14 208 Dilaudid medicatio n Not available Not available Not available 12/11/2017 94099 3 RxNorm Jinny crews [facility] 8 08:25:05 208 acetamino phen / oxycodone medicatio n Not available Not available Not available 12/11/2017 44485 3 RxNorm Jinny crews [facility] 8 08:25:10 2082 oxycodone medicatio n Not available Not available Not available 12/11/2017 7804 RxNorm Jinny crews [facility] 8 08:25:16 Medications Name Sig Start Date Stop Date Status Note LastModified by Organization Details LastModified Time desonide 0.05 % topical cream APPLY SPARINGLY AND RUB GENTLY INTO THE AFFECTED AREA(S) BY TOPICAL ROUTE 2 TIMES PER DAY active Not Available Not Available No t Available atorvastati n 80 mg tablet TAKE 1 TABLET BY MOUTH AT BEDTIME 01/26 completed Not Available Not Available Not Available prednisone 10 mg tablet take 6 tabs x 3 daystake 5 tabs x 3 days take 4 tabs x 3 daystake 3 tabs x 3 daystake 2 tabs x 3 daystake 1 tab x 3 days 11/14 completed Not Available Not Available Not Available clobetasol 0.05 % topical cream APPLY A THIN LAYER TO THE AFFECTED AREA(S) BY TOPICAL ROUTE 2 TIMES PER DAY active Not Available Not Available No t Available clopidogrel 75 mg tablet TAKE 1 TABLET BY MOUTH DAILY 08/25 completed Not Available Not Available Not Available amlodipine 5 mg tablet TAKE 2 TABLETS BY MOUTH DAILY active Not Available Not Available No t Available ciprofloxac in 500 mg tablet 11/14 completed Not Available Not Available Not Available carvedilol 3.125 mg tablet take 1 tablet By Mouth 2 times a day active Not Available Not Available No t Available ondansetron 8 mg disintegrat ing tablet DISSOLVE 1 tablet BY MOUTH TWICE DAILY NEEDED active Not Available Not Available No t Available alprazolam 0.5 mg tablet 11/14 completed Not Available Not Available Not Available tamsulosin 0.4 mg capsule TAKE 1 CAPSULE BY MOUTH ONCE DAILY active Not Available Not Available No t Available OneTouch Ultra Test strips Take 1 strip twice a day by miscell. route. 2021 active Not Available Not Available Not Avai lable cyanocobala min (vit B-12) 1,000 mcg/mL injection solution Inject 1 mL every week by intramusc ular route 01/26 completed Not Available Not Available Not Available gabapentin 300 mg capsule TAKE 1 CAPSULE BY MOUTH TWICE DAILY active Not Available Not Available No t Available epinephrine 0.3 mg/0.3 mL injection, auto-inject or INJECT ENTIRE CONTENTS OF 1 PEN NEEDED FOR ANAPHYLAC TIC SYMPTOMS. CALL 911 AFTER ADMINISTR ATION. active Not Available Not Available No t Available ibuprofen 600 mg tablet 05/20 completed Not Available Not Available Not Available BD Integra Syringe 3 mL 23 gauge x 1 Use as directed for monthly B12 injection s 2018 active Not Available Not Available Not Avai lable Aspir-81 Once a day active Not Available Not Available No t Available Brilinta 90 mg tablet Take 1 tablet every day by oral route for 30 days. 08/25 completed Not Available Not Available Not Available Brilinta BID 12/16 completed Not Available Not Available Not Available Vitals Date Recorded Body height Body mass index (BMI) Body weight Heart rate Oxygen saturation Oxygen saturation in Arterial blood by Pulse oximetry Systolic blood pressure Diastolic blood pressure Provider Name and Address Organization Details Last Updated DateTime 2 175.26 cm 25.4 kg/m2 19556.1 7 g 96 /min 96 % 96 % 148 mm[Hg] 70 mm[Hg] Aguilar BridgettSouleymane GoveafreyaDO [address] [place], [address] [facility] 2 15:02:47 Date Recorded Body height Body mass index (BMI) Body weight Heart rate Oxygen saturation Oxygen saturation in Arterial blood by Pulse oximetry Systolic blood pressure Diastolic blood pressure Provider Name and Address Organization Details Last Updated DateTime 2 175.26 cm 25.1 kg/m2 55454.9 8 g 70 /min 100 % 100 % 128 mm[Hg] 68 mm[Hg] Aguilar BridgettSouleymane Taylor DO [address] [place], [address] [facility] 2 15:27:29 Date Recorded Body height Body mass index (BMI) Body weight Heart rate Oxygen saturation Oxygen saturation in Arterial blood by Pulse oximetry Systolic blood pressure Diastolic blood pressure Provider Name and Address Organization Details Last Updated DateTime 4 175.26 cm 25 kg/m2 86197.1 1 g 61 /min 97 % 97 % 130 mm[Hg] 80 mm[Hg] Merlyn Desai [facility] 4 13:32:12 Social History Question Answer Notes LastModified by Organizat ion Details LastModified Time Tobacco Smoking Status Former Smoker Not Available [facility] 03/08/2020 03:36:24 What Was The Date Of Your Most Recent Tobacco Screening? 07/30/2023 [email or web address] Information not available 07/30/2023 Do You Or Have You Ever Used Any Other Forms Of Tobacco Or Nicotine? No Information not available 08/25/2021 Sex: Unknown Functional Status None recorded. Mental Status None recorded. Family History Nothing Reported. Medical History No medical history recorded. Past Encounters Encounter ID Performer Location Encounter Start Date Encounter Closed Date Diagnosis/Indication Diagnosis SNOMED-CT Code Diagnosis ICD10 Code Diagnosis Note [id number] Aguilar Mckeon [facility] [address] [facility], [facility]e [facility] [place] [address] 12/11/2017 09:58:16 12/11/2017 12:04:13 Cerebellar disorder 003339667 G93.9 will plan on referring to a [facility] specialist in cerebellar diseases Fatigue 10555119 R53.83 will also get lab work [id number] Aguilar UriasSouleymane Taylor [facility] [address] [facility], [place] [address] 12/20/2017 12:10:46 12/20/2017 13:13:26 Vitamin B12 deficiency (non anemic) 86086105 E53.8 start inj Dysphagia 60888702 R13.1 0 [id number] Aguilar Taylor [facility] [address] [facility], [place] [address] 01/31/2018 10:42:48 01/31/2018 13:33:34 Cobalamin deficiency 141038420 E53.8 was 174 has been doing the b12 he looks better overall will recc he start doing muscle strengthen ing and join a gym Hypertensive disorder 38 151001 I10 doing well overall has improved Vitamin B1 2 deficiency (non anemic) 72986994 E53.8 [place] [id number] August [facility] [address] [facility], [address] [facility] [place] [address] 05/20/2018 10:04:13 05/20/2018 10:46:11 Right side sciatica 4916788353 04697 M54.31 History of tobacco use 7326702688 103 Z87.891 Arthritis 5187342 M19.90 s/p THR about 10 years ago Chronic ki dney disease 148480069 N18.9 CT of kidneys non acute Kidney stone 96780559 N2 0.0 no apparent recently passed stone or kidney swelling [id number] [facility] [address] [facility], [address] [place] [place] [address] 11/14/2018 15:06:41 11/14/2018 16:09:15 Acute non-ST segment elevation myocardial infarction 048887068 I21.4 already had cardio f/u yesterday will be having cardiac rehab will be seeing genny hernandez at that time as well BP well controlled Hypercholesterolemia 136 24899 E78.00 on max of lipitor Hypertensive disorder 38 990194 I10 very well controlled [id number] ASTRID Hernandez [facility] [address] [facility] [address] [address] 12/16/2018 13:27:27 12/16/2018 14:17:56 Lightheadedness 921733049 R42 as this has been worked up significan tly over the span of [address] taylor, I will defer further work up to dr. taylor as I do not want to repeat testing that have already been done Major depr essive disorder 070357134 F32.9 he denies SI he declines pursuing treatment for depression , as he feels the sources of this is just his vertigo/di zziness/li ghtheadedn ess that limits him from doing the activities he enjoys Vertigo 653507133 R42 [id number] Aguilar Taylor [facility] [address] [facility] [address] 02/27/2019 12:01:42 02/27/2019 13:44:21 Vertigo 264398417 R42 given his persistant and worsening vertiginou s symptoms we will ask a neurologis t to eval Hypertensive disorder 38 896670 I10 doing well overall has improved Costal chondritis 515120 04 M94.0 told to cont with conserv tx and this should cont to fade away Acute ST s egment elevation myocardial infarction 256561945 I21.3 has been asymptomat ic and is doing well [id number] Aguilar Taylor [facility] [address] [facility] [address] [address] 09/09/2019 10:33:43 09/09/2019 11:37:25 Degenerative cervical spinal stenosis 941578764 M48.02 with ataxia and diplopia will need to have his neck eval told to stop cannabis will needs to have rechik after mri Hypertensive disorder 38 241079 I10 doing well overall has improved Cobalamin deficiency 190 748203 E53.8 was 174 has been doing the b12 he looks better overall will need lab [id number] Aguilar Taylor DO [facility] [address] [facility] [place] [address] 10/27/2019 10:49:39 10/27/2019 12:15:48 Degeneration of cervical intervertebral disc 17952224 M50.[address] Tolentino next week will have him wait on any therapy until seen [id number] KODY FRENCH [facility] [address] [place] [address], [place] [address] 02/01/2020 11:38:29 02/01/2020 12:35:59 Pre-surgery evaluation 889948430 Z01.818 Given the patient's history and examinatio n the patient is cleared for surgery [id number] Aguilar Taylor DO [facility] [address] [facility], [place] [address] 05/30/2021 08:19:19 05/30/2021 15:40:14 Chronic kidney disease 738988364 N18.9 Coronary arteriosclerosis 39215062 I25.10 Hypertensive disorder 38 619284 I10 doing well overall has improved Arthritis 2050918 M19.[address] s egment elevation myocardial infarction 150035043 I21.3 has been asymptomat ic and is doing well Nummular eczema 62193801 L30.0 [id number] Aguilar Taylor DO [facility] [address] [facility] [place] [address] 08/25/2021 14:51:05 08/25/2021 16:03:16 Ataxia 71003715 R27.0 we will have him get seen by a specialist as this has got to be a more diff diagnosis than we can find Excessive sweating 76672 005 R61 we are going to have them check his temp during this episodes Dizziness 877030270 R42 ongoing from the beginning Muscle wea kness of limb 639825423 M62.81 [place] [id number] Aguilar Taylor DO [facility] [address] [facility] [address] [address] 01/26/2022 15:18:10 01/26/2022 15:56:55 Excessive sweating 40212224 R61 we are going to have them check his temp during this episodes Tremor 78915970 R25.1 as part of his episodes Reduced visual acuity 13 907575 H54.7 [facility] here [id number] Aguilar Taylor DO [facility] [address] [facility] [address] 04/26/2023 08:13:07 04/26/2023 11:38:[address] segment elevation myocardial infarction 957014939 I21.3 has been asymptomat ic and is doing well Hypercholesterolemia 136 68691 E78.00 will be Hypertensive disorder 38 519160 I10 doing well overall has improved Chronic ki dney disease 862253091 N18.9 Hypoglycemia 479372529 E 16.2 Cobalamin deficiency 190 227890 E53.8 was 174 has been doing the b12 he looks better overall will need lab [id number] KODY FRENCH [facility] [address] [facility] [address] 07/30/2023 13:27:06 07/30/2023 15:32:02 Edema of lower extremity 214847469 R60.0 will fu in two weeksdrop down to one tab of the amlodipine Hypoglycemia 965910298 E 16.2 switched referral endo [facility] [id number] KODY FRENCH [facility] [address] [facility] [address] [address] 08/21/2023 08:41:26 08/21/2023 16:01:02 Edema of lower extremity 196879044 R60.0 fu next week Health Concerns Section Related Observation LastModified by Organization Detai ls LastModified Time None Recorded Concern Status LastModified by Organization Details LastModified Time None Recorded Advance Directives Directive None Recorded Payers Encounter Date Sequence Insurance Name Policy Number Policy Levine Covered Member ID Levine Member ID Guarantor Name 08/25/2021 1 [employer]UE BENEFIT [employer] OF [facility] [id number] Sangita Paniagua [id number] [address] Mtzy 08/25/2021 2 [place] PPO) [id number] Toro Paniagua [id number] Tor[address] Nelson Siva 01/26/2022 1 [place] [id number] Sangita A White Paniagua [id number] Toro Nelson Siva 01/26/2022 2 [place] PPO) [id number] Toro Paniagua [id number] Toro Nelson Siva 04/26/2023 1 [place] [id number] Sangita A White Paniagua [id number] Toro Nelson Siva 04/26/2023 2 [place] PPO) [id number] Toro Paniagua [id number] Tor[address] Nelson Siva 07/30/2023 1 [place] [place] [id number] Sangita A White Paniagua [id number] Toro Nelson Siva 07/30/2023 2 [place] PPO) [id number] Toro Paniagua [id number] Tor[address] Nelson Siva 08/21/2023 1 [employer] [place] [id number] Sangita A White Paniagua [id number] Toro Nelson Siva 08/21/2023 2 [place] PPO) [id number] Toro Paniagua [id number] Toro Omar Siva Notes Date Note Type Note Provider Name and Address Organization Details Recorded Time 2 text/htm l here for rechk has been to his neurosurg after the cervical surgery foraminectomiesstate this did not help his unsteadiness, not better with his vision , not better with his short term memory issuehe is having episodes of profuse sweating and diaphoresis that last 10-20 min have been occuring monthly and sometimes weakly Aguilar Taylor, DO [address] [place], [address], [facility] 08/25/2021 15:51:36 2 text/htm l here for rechk and stateshas a 24 hour headache and has ongoing pain down his neck and into shouldersstill has dizziness and lightheadedness and blurred visionlong detailed discussionhe has had cataracts done several years ago and he has had thses issues since then and has not been eval Aguilar Taylor, [address] [place], [address], [facility] 01/26/2022 15:55:37 3 text/htm l Care Management - HypertensionReported bypatient.Self Care:not under emotional stress Severity:symptoms are improving; does not interfere with daily activities Associated Symptoms:no dizziness; no lightheadedness; no chest pain; no shortness of breath; no palpitations; no edema; no calf muscle cramps; no blurred vision; no confusion; no headaches; no fatigue patient is evaluated via tele/video assessment per patient consentduring current pandemic call to tell us he has been running low blood test sugars which f=correlate with his symptomsbp has been goodhad a good cysto yesterday with urology 'relates has not lost any further weight same as 1 year at 160 Aguilar Taylor, [address] [place], [address], [facility] 04/26/2023 11:21:30 4 text/htm l c/o bilateral hip pain (R>L) with LE swelling in the feet bilateral feet swelling: the patient developed swelling on and off in his feet for about 7 to 8 mos, around that time looking at his chart, his amlodipine was increased to 2 tablets QD, which could explain why he is swelling will stop the second amlodipine and see if the swelling improvescarvedilol also can cause it, less likely since he hasn't had any adjustments around the time frame and he has been on the same dose of that for years now will f/u in three weeksprll monitor weights KODY FRENCH [address] [place], [address], [facility] 07/30/2023 13:55:34 4 text/htm l 2 week fu The patient is participating in this appointment via telemedicine communication with a phone call/video calling service ([employer])The patient consents to use of these platforms in place of an in-person appointment due to either sick symptoms the patient is presenting with or current office closure due to COVID exposure in order to keep our office staff and patients safe fu two weeksankle swelling has reduced around half per patientthe sharp pain is gone which is goodstill gets the tingling which is normal considering the amount of swelling he handsensation intact continue lower amlodipinenot sure of BP, hasn't been taking it agreed to fu in office next week to recheck BP and exam of his legs KODY FRENCH [address] [place] [address], [place], [phone], [facility] 08/21/2023 14:46:33
== END 2024-08-20 10:43 | disposition home or self-care (01) ==
LOC: HO.ENCR 09:49
PROVIDERS: PCP Internal Medicine; Visit Provider Student in an Organized Health Care Education/Training Program
DX: E16.2 Hypoglycemia, unspecified (principal)
CPT/HCPCS: 99205

== ENCOUNTER 2024-08-20 09:48 | Outpatient (REF) | payer OTHER, MEDICARE, SELFPAY ==
[2024-08-20 12:13] LABS: Cortisol Random 9.8 ug/dL
[2024-08-20 12:31] LABS: Anion Gap 12 (12-20); Blood Urea Nitrogen 15 mg/dL (9-16); Calcium 9.6 mg/dL (8.4-10.2); Carbon Dioxide 26 mmol/L (22-29); Chloride 107 mmol/L (96-108); Estimated Glomerular Filt Rate > 60; Glucose Random 87 mg/dL (60-115); Insulin 5 uU/mL (2-29); Potassium 4.4 mmol/L (3.3-5.1); Sodium 141 mmol/L (135-145); TSH reflex Free T4 1.28 uIU/mL (0.32-4.0)
[2024-08-21 05:18] LABS: C Peptide 3.51 ng/mL (0.80-3.85)
[2024-08-25 10:09] LABS: Metanephrine, Free 76 pg/mL (<=57); Normetanephrines, Free 177 pg/mL (<=148); Total Metanephrine, Free 253 pg/mL (<=205)
[2024-08-26 02:29] LABS: Proinsulin 7.7 pmol/L (< OR = 18.8)
[2024-08-26 16:53] LABS: Insulinoma associated 2 aatb <5.4 U/mL (<5.4)
[2024-08-27 20:12] LABS: Insulin Auto Antibody <0.4 U/mL (<0.4)
[2024-08-28 20:33] LABS: Insulin Growth Factor 2 603 ng/mL (267-616)
[2024-08-31 11:49] LABS: Chlorpropamide None Detected; Glimepiride None Detected; Glipizide None Detected; Glyburide None Detected; Nateglinide None Detected; Pioglitazone None Detected; Repaglinide None Detected; Rosiglitazone None Detected; Tolazamide None Detected; Tolbutamide None Detected
== END 2024-08-20 09:49 | disposition home or self-care (01) ==
LOC: HO.LAB 09:48
PROVIDERS: PCP Internal Medicine; Visit Provider Student in an Organized Health Care Education/Training Program
DX: E16.2 Hypoglycemia, unspecified (principal)
CPT/HCPCS: 36415; 80048; 80337; 82533; 83525; 83789; 83835; 84206; 84443; 84681; 86337

== ENCOUNTER 2024-08-28 10:12 | Outpatient (REF) | payer OTHER, MEDICARE, SELFPAY ==
[2024-08-28 12:04] LABS: Creatinine, mg/dL 164.52
[2024-08-28 12:05] LABS: Creatinine, 24Hr Urine 1.2 G/Day (1.0-2.0); Total Volume 24 Hour Urine 725 mL
== END 2024-08-28 10:13 | disposition home or self-care (01) ==
LOC: HO.LNP 10:12
PROVIDERS: Visit Provider Student in an Organized Health Care Education/Training Program
DX: R79.89 Other specified abnormal findings of blood chemistry (principal)
CPT/HCPCS: 82384; 82570; 83835

== ENCOUNTER 2024-10-06 09:25 | Outpatient (AMB) | payer OTHER, MEDICARE, SELFPAY ==
--- NOTE | 2024-10-06 09:26 | MHC.OFFVIS ---
Vital Signs 10/06/24 09:27 Height 6 ft Weight 166 lb 14.239 oz BMI 22.6 BP 122/54 L Blood Pressure Location Lt brachial Position Sitting Pulse 76 Pulse Source Pulse Oximeter Intake Visit Reasons: Elevated plasma metanephrines Intake Note: Patient present today for Elevated plasma metanephrines office visit. 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 HPI from initial visit Since 3-4 years, Complaining of spells of lightheadedness , paresthesias in hands, floaters , increased diaphoresis , clammy, Blurry vision, seen eye doctor, exam was unremarkable. munches on chocolates, salt, episodes get better in 20 mins. Patient brought in log book reviewed : variable blood sugars recorded by meter but a few episodes of hypoglycemia noted Apr 2024 at 48, May 30 one episode of 50. other few episodes of blood sugars in 40s to 50s here and there, but mostly otherwise in 60s to 70s. Unrelated to food intake or fasting, can happen any time of the day. Active and doing well otherwise. No history of liver disease CKD stage 3a, from HTN? EGFR 55. 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 Interval history 10/06/2024 08/20/2024 Did a prolonged fast for 30 to 48 hours, despite that his blood glucose only dropped to 87, hence hypoglycemia panel not useful. Mildly elevated plasma metanephrine, normetanephrine levels, however repeat on 08/28/2024 24 hour urine levels were normal. He forgot to bring glucometer today but did bring his log book which again showed that he continues to have these spells randomly where he is diaphoretic, sometimes dizzy or lightheaded, there is no specific pattern but most of these happen 2-3 hours after a meal and not fasting. Blood sugars can be anywhere from early 100s to as low as 56. Not lower. I did notice a pattern that most nights he is having refined sugars like cookies and ice cream after which a few hours later he will have hypoglycemia. Quit tobacco use at age 27 smokes marijuana Retired from [employer] job Past medical history CAD s/p PCI 2021 HTN Prediabetes Bladder cancer s.p chemo and surgery with history of recurrence , now in remission Past surgical history Back surgeries hiatal Hernia repair Left hip replacement Knee repairs Bladder cancer resection Family history Father : CAD Sister : breast cancer Physical exam General: sitting comfortably in no acute distress HEENT: normocephalic/atraumatic, moist oral mucosa Neck: supple Cardiac: normal heart sounds Pulm: normal breath sounds B/L, no added breath sounds Abd: not distended, no tenderness Laboratory Tests 04/27/18 09/10/19 05/03/23 08:41 10:13 10:12 Random Glucose 112 104 146 H Estimat Average Glucose Hemoglobin A1c % 05/24/23 05/05/24 08:26 08:28 Random Glucose 101 Estimat Average Glucose 111 114 Hemoglobin A1c % 5.5 5.6 Laboratory Tests 02/21/22 06:54 Plasma Free Metaneph 81 H Plasma Free Normeta 198 H Plas Total Metaneph 279 H Laboratory Tests 08/20/24 08/28/24 11:19 08:00 Sodium 141 Potassium 4.4 Creatinine 1.15 Estimated GFR > 60 Random Glucose 87 Insulin Level 5 Proinsulin 7.7 C-Peptide 3.51 Calcium 9.6 TSH 1.28 Insulin-like GF II 603 Random Cortisol 9.8 Plasma Free Metaneph 76 H Plasma Free Normeta 177 H Plas Total Metaneph 253 H Ur 24 Hour Volume 725 Ur Creatinine 24 Hour 1.2 Urine Total Volume 725 U Free Metanephrine 252 U Normetanephrine 24h 354 U Tot Metanephrine 24h 606 Ur Dopamine 24 Hr 201 U Tot Catecholamine 24h 34 Urine Creatinine 1.23 [facility] Medical History (Updated 08/20/24 @ 10:49 by Anabell Whitaker MD) Hypoglycemia Elevated plasma metanephrines Assessment & Plan Assessment & Plan (1) Hypoglycemia: Code(s): E16.2 - Hypoglycemia, unspecified Category: Medical Plan: 79-year-old male with a history of CAD status post PCI, history of bladder cancer status post resection and chemotherapy, hypertension who is here today for follow up of concerns of hypoglycemia. He has been having spells of lightheadedness/dizziness, diaphoresis, clamminess, palpitations with no relation to food intake, and no relation to timing, for the past 3-4 years. He has a blood glucose meter, no history of diabetes mellitus, and he has been recording his episodes and some blood glucose readings were noted to be low in the 40s and 50s, otherwise during some episodes blood sugars were normal. He does report improvement within 20 minutes after he eats sugary and salty snacks. 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 He has had hypoglycemia panel done in April 2024 however his blood sugar was normal so that is not useful. He is not on any medications that cause hypoglycemia. No history of liver disease. He does have CKD stage IIIA per his last EGFR of 55, likely due to history of hypertension? He is not on any insulin, denies any exposure to diabetic medications at home. Though his is a nurse. No alcohol use. He is otherwise healthy. 08/20/2024 Did a prolonged fast for 30 to 48 hours, despite that his blood glucose only dropped to 87, hence hypoglycemia panel not useful. Mildly elevated plasma metanephrine, normetanephrine levels, however repeat on 08/28/2024 24 hour urine levels were normal. He forgot to bring glucometer today but did bring his log book which again showed that he continues to have these spells randomly where he is diaphoretic, sometimes dizzy or lightheaded, there is no specific pattern but most of these happen 2-3 hours after a meal and not fasting. Blood sugars can be anywhere from early 100s to as low as 56. Not lower. I did notice a pattern that most nights he is having refined sugars like cookies and ice cream after which a few hours later he will have hypoglycemia. At this point since some of his episodes are not related to low blood sugars, I do not think these are truly hypoglycemic episodes and his diaphoresis, lightheadedness could be due to some other etiology. He might benefit from further workup through PCP. I have asked him to discuss it with a his PCP. I have asked him to continue logging the episodes and record his sugars during those times. He forgot to bring his glucometer today but I have asked him to bring it to next visit. We will see him in another 4 months or so, in the meantime he does have hypoglycemia panel ordered if he was able to capture 1 of these episodes with low blood sugars and to complete the panel during that time. Safety instructions provided. Hypoglycemia education done. When his blood sugars are lows and associated with these episodes, mostly the pattern is a postprandial usually happening 2-3 hours after eating. He does have a habit of snacking on refined sugars mostly in the later part of the day, I discussed that some of these refined sugars can cause and hyper insulin anemic search followed by hypoglycemia. While this is mostly seen in bariatric surgery patients, it might be happening in his case as well. We did a lot of dietary education regarding avoiding refined meals and doing frequent small meals with high protein intake. Plan: -orders placed for hypoglycemia panel -continue to log episodes with blood glucose readings and bring glucometer and log to next appointment -asked him to try frequent small meals with higher focus on protein intake to see if he has a improvement in episodes Plan See above Patient Instructions: Focus on eating whole grains and proteins Incorporate at least 60 g of protein in your day Chicken, eggs, Cheese, protein powder in milk, Avoid ice cream, cookies, and if you do eat it eat it with string cheese, peanut butter to get some protein in Eat 5 to 6 small meals (some protein with veggies or carbs) throughout the day and dont snack on refined sugars like cookies . Please bring glucometer to next visit Follow up in 4 months There are lab orders in for if you get a spell with glucometer showing less than 60 mg/dl blood sugar, if you can do blood work at that time , please have your drive you and have snacks on you to correct the hypoglycemia as soon as blood is drawn Rule of 15 Treatment for Hypoglycemia (Low blood sugar) If your blood glucose is low (70 and below)*, follow the steps below to treat: Eat or drink something from the list below equal to 15 grams of carbohydrate (carb). Rest for 15 minutes Re-check your blood glucose. If it is still low, (below 70), repeat step 1 above. ? If your next meal is more than an hour away, you will need to eat one carbohydrate choice as a snack to keep your blood glucose from going low again. ?If you can't figure out why you have low blood glucose, call your healthcare provider, as your medicine may need to be adjusted. ?Always carry something with you to treat an insulin reaction. Use food from the list below. ? Foods equal to One Carbohydrate Choice (15 grams of carbohydrate): 3 Glucose ?tablets or 4 Dextrose tablets 4 ounces of fruit juice 5-6 ounces (about 1/2 can) of regular soda such as Coke or Pepsi ? 7-8 gummy or regular Life Savers ? 1 Tbsp. of sugar or jelly NOTE: If your blood sugar is less than 50, double the portion above for a total of 30 gm. ?Carbohydrate. ? Follow meal plan of 45-60 g of consistent carbohydrates at 3 meals each day and 15 g of carbohydrate at 1-2 snacks each day. Coding Level of Care Code Est Pt Level 3 (67515) Diagnoses Hypoglycemia E16.2
[2024-10-06 09:27] VITALS: BP 122/54; PULSE 76; BMI 22.6
--- OUTSIDE RECORDS SUMMARY | 2024-10-06 10:27 | XMS_ITS | Data Portability ---
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) [facility] MODERATE MUST MEET 2 OUT OF [...] COVERED Not available 08/25/2021 15:45:39 01/26/2022 01/26/2022 [id number] [place] [id number] (MACHINE PECAN GATHERER) [facility] MODERATE MUST MEET 2 OUT OF [...] COVERED Not available 01/26/2022 15:45:50 04/26/2023 04/26/2023 [id number] [place] [id number] (MACHINE PECAN GATHERER) : MDM LOW MUST MEET 2 OF [...] Lab magnesium, serum or plasma 2022 023 [facility], [address] [place] [address], [address], 3 11:05:17 CMP, serum or plasma 2022 023 [facility], [address] [place] [address], [address], 4 11:10:32 vitamin D, 25-hydroxy , total, serum 2022 023 [facility], [address] [place] [address], [address], 3 10:09:14 vitamin B12, serum 2022 023 [facility], [address] [place] [address], [address], 3 11:05:18 insulin, serum 2022 023 [facility], [address] [place] [address], [address], 3 11:05:18 BMP, serum or plasma 2022 023 [facility], [address] [place] [address], [address], 3 11:05:17 CBC w/ auto diff 2022 023 [facility], [address] [place] [address], [address], 3 11:05:17 C-peptide, serum 2022 023 [facility], [address] [place] [address], [address], 3 11:05:17 metanephri ne, fractionat ed, free, serum or plasma 2021 022 [facility], [address] [place] [address], [address], 2 15:50:33 Referral ophthalmol ogist referral - absolutely strange visual acuity issues 2021 022 [email or web address] 10 Peg Harrison MD, [address], [address], 2 08:21:30 Procedures None recorded. Surgeries None recorded. Imaging None recorded. Medication Orders None recorded. Patient TargetsNo targets recorded. 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 [facility] [address] [place], [address], 10/16/2021 09:22:52 06/03/19 24 05/30/2023 CT, abdom en + pelvi s, w/wo contr ast No observ ation record ed. [facility] - Stat [address] [place], [address], 06/04/2023 06:43:09 06/07/19 24 05/30/2023 CT, abdom en + pelvi s, w/wo contr ast No observ ation record ed. [address], [place], [address], 06/09/2023 08:25:56 07/08/19 24 07/05/2023 XR, cervi yasmin spine , 1 view No observ ation record ed. [address] [place], [address], 07/08/2023 15:41:36 08/16/19 24 08/06/2023 CT, cervi yasmin spine , w/o contr ast No observ ation record ed. [facility] [address] [place], [address], 08/17/2023 10:31:14 Result Notes None recorded. Problems Name Problem SNOMED Code Status Onset Date Resolution Date Notes Provider Name and Address Organization Details Recorded Time Benign prostatic hyperplas ia 927582006 Active 2017 JERONIMO [facility] 8 08:25:22 Allergic rhinitis 61201649 Active 2017 Jinny crews [facility] 8 08:25:59 Coronary arteriosc lerosis 04557301 [facility] 08:26[facility]08 History of angioplas ty 042346467 Active 2017 Jinny crews [facility] 8 08:26:14 Hypertens bettye disorder 96855718 Active 2017 Jinny crews [facility] 8 08:26:18 Hyperchol esterolem ia 06220877 Active 2017 Jinny crews [facility] 8 08:26:25 Kidney stone 92783916 Active 2017 Jinny crews [facility] 8 08:26:30 Steatotic liver disease 330513479 Active 2017 Jinny crews [facility] 8 08:26:38 Alcoholis m 5303607 Active 2017 quit 12 years ago KODY FRENCH [address] [place] [address], [place], [address], [facility] 0 12:08:56 Trammell's esophagus 527696755 Active 2017 Jinny crews [facility] 8 08:26:56 Gastroeso phageal reflux disease 038855275 Active 2017 Jinny crews [facility] 8 08:27:04 Arthritis 2908443 Active 2017 Jinny crews [facility] 8 08:27:11 Cobalamin deficienc y 177437308 Active 2017 Jinny crews [facility] 8 08:27:18 Vertigo 423860791 Active 2017 Jinny crews [facility] 8 08:27:24 Migraine 23899093 Active 2017 Jinny crews [facility] 8 08:27:30 Chronic kidney disease 202197580 Active 2017 Jinny crews [facility] 8 08:27:46 History of tobacco use 325473205509 3 Active 2017 quit at age 28 Jinny crews [facility] 8 08:28:[address] segment elevation myocardia l infarctio n 132142743 Active 2018 S/P BRYANT [address], [address], [facility] 9 15:51:48 Malignant neoplasm of urinary bladder 123496591 Active [address], [address], [facility] 9 15:54:22 Costal chondriti s 55380924 Active 2018 Aguilar Amaro [address], [address], [facility] 9 12:37:35 Ataxia 60638753 Active 2021 Aguilar Amaro DO [address] [place] [address], [address], [facility] 2 15:44:40 Excessive sweating 61693738 Active 2021 Aguilar Amaro DO [address] [place] [address], [address], [facility] 2 15:44:57 Dizziness 517809912 Active 2021 Aguilar Amaro DO [address] [place] [address], [address], [facility] 2 15:45:47 Muscle weakness of limb 279195019 Active 2021 Aguilar Amaro DO [address] [place] [address], [address], [facility] 2 15:46:07 Tremor 68179949 Active 2021 Aguilar Amaro, DO [address] [place] [address], [address], [facility] 2 15:45:59 Reduced visual acuity 90254178 Active 2021 Aguilar Amaro [address], [address], [facility] 2 15:47:13 Hypoglyce alejandro 569136357 Active 2022 Aguilar Amaro, [address], [address], [facility] 3 11:00:47 Insulin resistanc e 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 Medical Equipment None Reported. Allergies Allergen ID Allergen Name Allergen Category Reaction Reaction Severity Criticality Documentation Date Start Date Code Code System Note Provider Name and Address Organization Details Recorded Time 2079 honey bee venom medicatio n Not available Not available Not available 12/11/2017 04286 7 RxNorm Jinny crews [facility] 8 08:21:14 2080 Dilaudid medicatio n Not available Not available Not available 12/11/2017 38330 3 RxNorm Jinny crews [facility] 8 08:25:05 208 acetamino phen / oxycodone medicatio n Not available Not available Not available 12/11/2017 02373 3 RxNorm Jinny crews [place] [facility] 8 08:25:10 3 oxycodone medicatio n Not available Not available Not available 12/11/2017 7804 RxNorm JERONIMO [facility] 8 08:25:16 Medications Name Sig Start Date [...] Updated DateTime 4 175.26 cm 25 kg/m2 11339.1 1 g 61 /min 97 % 97 % 130 mm[Hg] 80 mm[Hg] Merlyn Desai [facility] 4 13:32:12 Date Recorded Body height Body mass index (BMI) Body weight Heart rate Oxygen saturation Oxygen saturation in Arterial blood by Pulse oximetry Systolic blood pressure Diastolic blood pressure Provider Name and Address Organization Details Last Updated DateTime 2 175.26 cm 25.4 kg/m2 93193.1 7 g 96 /min 96 % 96 % 148 mm[Hg] 70 mm[Hg] Aguilar Amaro DO [address] [place], [address] [place] [address] Internal Medicine 2 15:02:47 Date Recorded Body height Body mass index (BMI) Body weight Heart rate Oxygen saturation Oxygen saturation in Arterial blood by Pulse oximetry Systolic blood pressure Diastolic blood pressure Provider Name and Address Organization Details Last Updated DateTime 2 175.26 cm 25.1 kg/m2 66964.9 8 g 70 /min 100 % 100 % 128 mm[Hg] 68 mm[Hg] Aguilar Amaro DO [address] [place], [address] [facility] 15:27:29 Social History Question Answer Notes LastModified by Organizat ion Details LastModified Time Tobacco Smoking Status Former Smoker Not Available [facility] 03/08/2020 03:36:24 What Was The Date Of Your Most Recent Tobacco Screening? 07/30/2023 [email or web address] Information not available 07/30/2023 Sex: Unknown Functional Status Question Answer Note LastModified by Organization D etails LastModified Time Do you or have you ever used any other forms of tobacco or nicotine? No Information not available 08/25/2021 Mental Status None recorded. Family History Nothing Reported. Medical History No medical history recorded. Past Encounters Encounter ID Performer Location Encounter Start Date Encounter Closed Date Diagnosis/Indication Diagnosis SNOMED-CT Code Diagnosis ICD10 Code Diagnosis Note [id number] Aguilar Amaro [facility] [address] [place] [address] 12/11/2017 09:58:16 12/11/2017 12:04:13 Cerebellar disorder 357759704 G93.9 will plan on referring to a [facility] specialist in cerebellar diseases Fatigue 79930169 R53.83 will also get lab work [id number] Aguilar BridgettSouleymane Amaro [facility] [address] [place] [address] 12/20/2017 12:10:46 12/20/2017 13:13:26 Vitamin B12 deficiency (non anemic) 03650714 E53.8 start inj Dysphagia 81886282 R13.1 0 [id number] Aguilar BridgettSouleymane Amaro [facility] [address] [place] [address] 01/31/2018 10:42:48 01/31/2018 13:33:34 Cobalamin deficiency 608098658 E53.8 was 174 has been doing the b12 he looks better overall will recc he start doing muscle strengthen ing and join a gym Hypertensive disorder 38 190981 I10 doing well overall has improved Vitamin B1 2 deficiency (non anemic) 67646113 E53.8 start inj [id number] Aguilar Amaro [facility] [address] [facility],[place] [address] 05/20/2018 10:04:13 05/20/2018 10:46:11 Right side sciatica 8757852407 43174 M54.31 History of tobacco use 1707397714 103 Z87.891 Arthritis 7586435 M19.90 s/p THR about 10 years ago Chronic ki dney disease 435153213 N18.9 CT of kidneys non acute Kidney stone 84998018 N2 0.0 no apparent recently passed stone or kidney swelling [id number] Aguilar Amaro [facility] [address] [facility],[place] [address] 11/14/2018 15:06:41 11/14/2018 16:09:15 Acute non-ST segment elevation myocardial infarction 209426278 I21.4 already had cardio f/u yesterday will be having cardiac rehab will be seeing [facility] at that time as well BP well controlled Hypercholesterolemia 136 06477 E78.00 on max of lipitor Hypertensive disorder 38 980287 I10 very well controlled [id number] Aguilar Amaro [facility] [address] [facility],[place] [address] 12/16/2018 13:27:27 12/16/2018 14:17:56 Lightheadedness 939909298 R42 as this has been worked up significan tly over the span of [address] amaro, I will defer further work up to dr. amaro as I do not want to repeat testing that have already been done Major depr essive disorder 371084031 F32.9 he denies SI he declines pursuing treatment for depression , as he feels the sources of this is just his vertigo/di zziness/li ghtheadedn ess that limits him from doing the activities he enjoys Vertigo 548089137 R42 [id number] Aguilar Amaro [facility] [address] [facility],[place] [address] 02/27/2019 12:01:42 02/27/2019 13:44:21 Vertigo 691394159 R42 given his persistant and worsening vertiginou s symptoms we will ask a neurologis t to eval Hypertensive disorder 38 126124 I10 doing well overall has improved Costal chondritis 251089 04 M94.0 told to cont with conserv tx and this should cont to fade away Acute ST s egment elevation myocardial infarction 651475043 I21.3 has been asymptomat ic and is doing well [id number] Aguilar Amaro [facility] [address] [facility], [place] [address] 09/09/2019 10:33:43 09/09/2019 11:37:25 Degenerative cervical spinal stenosis 189590031 M48.02 with ataxia and diplopia will need to have his neck eval told to stop cannabis will needs to have rechik after mri Hypertensive disorder 38 290602 I10 doing well overall has improved Cobalamin deficiency 190 026360 E53.8 was 174 has been doing the b12 he looks better overall will need lab [id number] Aguilar Amaro [facility] [address] [facility], [place] [address] 10/27/2019 10:49:39 10/27/2019 12:15:48 Degeneration of cervical intervertebral disc 44909263 M50.[address] Tolentino next week will have him wait on any therapy until seen [id number] Aguilar Amaro [facility] [address] [place] [address], [place] [address] 02/01/2020 11:38:29 02/01/2020 12:35:59 Pre-surgery evaluation 916389498 Z01.818 Given the patient's history and examinatio n the patient is cleared for surgery [id number] Aguilar Amaro [facility] [address] [facility], [place] [address] 05/30/2021 08:19:19 05/30/2021 15:40:14 Chronic kidney disease 622881972 N18.9 Coronary arteriosclerosis 60452469 I25.10 Hypertensive disorder 38 228622 I10 doing well overall has improved Arthritis 6106612 M19.[address] s egment elevation myocardial infarction 139695599 I21.3 has been asymptomat ic and is doing well Nummular eczema 16073433 L30.0 [id number] Aguilar Amaro [facility] [address] [facility] [address] 08/25/2021 14:51:05 08/25/2021 16:03:16 Ataxia 31429419 R27.0 we will have him get seen by a specialist as this has got to be a more diff diagnosis than we can find Excessive sweating 99435 005 R61 we are going to have them check his temp during this episodes Dizziness 475639697 R42 ongoing from the beginning Muscle wea freddyess of limb 619884310 M62.81 [place] [id number] Aguilar Amaro [facility] [address] [facility] [address] 01/26/2022 15:18:10 01/26/2022 15:56:55 Excessive sweating 65658618 R61 we are going to have them check his temp during this episodes Tremor 70981764 R25.1 as part of his episodes Reduced visual acuity 13 805640 H54.7 [facility] a [facility] is clearly having problems here [id number] Aguilar Amaro DO [facility] [address] [facility] [address] 04/26/2023 08:13:07 04/26/2023 11:38:[address] segment elevation myocardial infarction 934934756 I21.3 has been asymptomat ic and is doing well Hypercholesterolemia 136 08609 E78.00 will be Hypertensive disorder 38 475298 I10 doing well overall has improved Chronic ki dney disease 688217374 N18.9 Hypoglycemia 453932154 E 16.2 Cobalamin deficiency 190 277158 E53.8 was 174 has been doing the b12 he looks better overall will need lab [id number] Aguilar Amaro DO [facility] [address] [facility] [address] [address] 07/30/2023 13:27:06 07/30/2023 15:32:02 Edema of lower extremity 945367080 R60.0 will fu in two weeksdrop down to one tab of the amlodipine Hypoglycemia 206412562 E 16.2 switched referral endo to [facility] [id number] Aguilar Amaro DO [facility] [address] [facility] [address],[place] [address] 08/21/2023 08:41:26 08/21/2023 16:01:02 Edema of lower extremity 382046909 R60.0 fu next week Health Concerns Section Related Observation LastModified by Organization Detai ls LastModified Time None Recorded Concern Status LastModified by Organization Details LastModified Time None Recorded Advance Directives Directive None Recorded Payers Encounter Date Sequence Insurance Name Policy Number Policy Levine Covered Member ID Leivne Member ID Guarantor Name 08/25/2021 1 [employer] [employer] [id number] Sangita A White [place] [id number] [place] 08/25/2021 2 [place]MEDICARE REPLACEMENT PPO) [id number] Toro Paniagua [id number] [place] 01/26/2022 1 [employer] [employer] [place] [id number] Sangita A White Paniagua [id number] [place] 01/26/2022 2 [place]AC[place] PPO) [id number] Toro Paniagua [id number] [place] 04/26/2023 1 [employer] [id number] Sangita A White Paniagua [id number] [place] 04/26/2023 2 [place]MED[place]PLACEMENT PPO) [id number] Toro Paniagua [id number] [place] 07/30/2023 1 [employer] [id number] Sangita A White Paniagua [id number] [place] 07/30/2023 2 [place] (MED[place]PLACEMENT PPO) [id number] Toro Paniagua [id number] [place] 08/21/2023 1 BLUE BENEFIT ADMINISTRATORS OF [facility] (EPO) [id number] Sangita Paniagua [id number] [place] 08/21/2023 2 [facility]: MEDICAR E PPO BLUE (MEDICARE REPLACEMENT PPO) [id number] Toro Nelson Siva [id number] Toro Nelson Siva Notes Date Note Type Note Provider [...] been occuring monthly and sometimes weakly Aguilar Amaro DO [address] [place] [address], [address], [facility] 08/25/2021 15:51:36 2 text/htm l here for rechk and stateshas a 24 hour headache and has ongoing pain down his neck and into shouldersstill has dizziness and lightheadedness and blurred visionlong detailed discussionhe has had cataracts done several years ago and he has had thses issues since then and has not been eval Aguilar Amaro DO [address] [place] [address], [address], [facility] 01/26/2022 15:55:37 3 text/htm [...] same as 1 year at 160 Aguilar Amaro DO [address] [place], [address], [facility] 04/26/2023 11:21:30 4 text/htm [...] for years now will f/u in three weekswill monitor weights KODY FRENCH [address] [place], [address], [facility] 07/30/2023 13:55:34 4 text/htm l 2 week fu The patient is participating in this appointment via telemedicine communication with a phone call/video calling service (Duda)The patient consents to use of these platforms [...] and exam of his legs KODY FRENCH [address] [place], [address], [facility] 08/21/2023 14:46:33
== END 2024-10-06 09:50 | disposition home or self-care (01) ==
LOC: HO.ENCR 09:26
PROVIDERS: PCP Internal Medicine; Visit Provider Student in an Organized Health Care Education/Training Program
DX: E16.2 Hypoglycemia, unspecified (principal)
CPT/HCPCS: 99213

== ENCOUNTER 2024-11-25 09:21 | Outpatient (REF) | payer OTHER, MEDICARE, SELFPAY ==
--- OUTSIDE RECORDS SUMMARY | 2024-11-25 09:54 | XMS_ITS | Data Portability ---
Author Organization [facility], Telehealth Patient Home Address [address] [place] [address] Assessment Encounter Date Assessment Date Assessment LastModified by Organization Details LastModified Time 08/25/2021 08/25/2021 [id number] [place] [address] (FEED HANDLER) [facility] MUST MEET 2 OUT OF 3 [...] COVERED Not available 08/25/2021 15:45:39 01/26/2022 01/26/2022 [id number] [place] [address] (FEED HANDLER) [facility] MUST MEET 2 OUT OF 3 [...] COVERED Not available 01/26/2022 15:45:50 04/26/2023 04/26/2023 [id number] [place] [address] (FEED HANDLER) : MDM LOW MUST MEET 2 OF [...] Lab magnesium, serum or plasma 2022 023 [facility], [address] [place] [address], [address], 3 11:05:17 CMP, serum or plasma 2022 023 [facility], [address] [place] [address], [address], 4 11:10:32 vitamin D, 25-hydroxy , total, serum 2022 023 [facility], [address] [place] [address], [address], 3 10:09:14 vitamin B12, serum 2022 023 [facility], [address] [place] [address], [address], 3 11:05:18 insulin, serum 2022 023 [facility], [address] [place] [address], [address], 3 11:05:18 BMP, serum or plasma 2022 023 [facility], [address] [place] [address], [place], [address], 3 11:05:17 CBC w/ auto diff 2022 023 [facility], [address] [place] [address], [address], 3 11:05:17 C-peptide, serum 2022 023 [facility], [address] [place] [address], [address], 3 11:05:17 metanephri ne, fractionat ed, free, serum or plasma 2021 022 [facility], [address] [place] [address], [place], [address], 2 15:50:33 Referral ophthalmol ogist referral - absolutely strange visual acuity issues 2021 022 [email or web address] 10 Peg Harrison MD, [address], [address], 2 08:21:30 Procedures None recorded. Surgeries None recorded. Imaging None recorded. Medication Orders None recorded. Patient TargetsNo targets recorded. Patient Instructions Encounter Date Encounter Id Patient Instructions Last Modified By Organization Details Last Modified Time 08/25/2021 [id number] abnormal sweating: care instructions Not available 08/25/2021 15:51:08 dizziness: care instructions Not available 08/25/2021 15:51:08 01/26/2022 [id number] abnormal sweating: care instructions Not available 01/26/2022 15:45:20 04/26/2023 [id number] hypoglycemia: care instructions Not available 04/26/2023 11:03:50 Reason for Referral [employer] Referral for Reduced visual acuity absolutely strange visual acuity issues Referring Physician: Aguilar Amaro, Internal Medicine, Encounter Date: 01/26/2022 Results Created Date Observation Date Name Description Value Unit Range Abnormal Flag Note LastModifiedBy Organization Detail LastModifiedTime 10/11/19 22 10/09/2021 MRI, brain , w/o contr ast No observ ation record ed[facility] [address] [place], [address], 10/16/2021 09:22:52 06/03/19 24 05/30/2023 CT, abdom en + pelvi s, w/wo contr ast No observ ation record ed. [facility] - Stat [address] [place], [address], 06/04/2023 06:43:09 06/07/19 24 05/30/2023 CT, abdom en + pelvi s, w/wo contr ast No observ ation record ed. [address], [place], [address], 06/09/2023 08:25:56 07/08/19 24 07/05/2023 XR, cervi yasmin spine , 1 view No observ ation record ed. [address] [place], [address], 07/08/2023 15:41:36 08/16/19 24 08/06/2023 CT, cervi yasmin spine , w/o contr ast No observ ation [facility]. [facility] [address] [place], [address], 08/17/2023 10:31:14 Result Notes None recorded. Problems Name Problem SNOMED Code Status Onset Date Resolution Date Notes Provider Name and Address Organization Details Recorded Time Benign prostatic hyperplas ia 891952527 Active 2017 Jinny crews [place] [facility] 8 08:25:22 Allergic rhinitis 79217926 Active [address] [facility] 8 08:25:59 Coronary arteriosc lerosis 74314679 Active 2017 [facility] 08:26:08 History of angioplas ty 077891456 Active [address] [facility] 8 08:26:14 Hypertens bettye disorder 66256268 Active [address]inny [address] [facility] 8 08:26:18 Hyperchol esterolem ia 55009599 Active [address] [facility] 8 08:26:25 Kidney stone 84680589 Active [address]inny [address] [facility] 8 08:26:30 Steatotic liver disease 672392832 Active [address] [facility] 8 08:26:38 Alcoholis m 1895403 Active 2017 quit 12 years ago KODY FRENCH [address] [place] [address], [address], [facility] 0 12:08:56 Trammell's esophagus 068728567 Active [address]inny [address] [facility] 8 08:26:56 Gastroeso phageal reflux disease 119010238 Active [address]inny [address] [facility] 8 08:27:04 Arthritis 0501068 Active [address]inny [address] [facility] 8 08:27:11 Cobalamin deficienc y 721537566 Active [address] Jinny crews [facility] 8 08:27:18 Vertigo 904638362 Active [address] [facility] 8 08:27:24 Migraine 72465520 Active 2017 Jinny crews [facility] 8 08:27:30 Chronic kidney disease 631093904 Active 2017 Jinny crews [facility] 8 08:27:46 History of tobacco use 593275467816 3 Active 2017 quit at age 28 Jinny crews [facility] 8 08:28:[address] segment elevation myocardia l infarctio n 096517181 Active 2018 S/P BRYANT [address], [address], [facility] 9 15:51:48 Malignant neoplasm of urinary bladder 504681119 Active [address], [address], [facility] 9 15:54:22 Costal chondriti s 14505953 Active 2018 Aguilar Amaro, DO [address] [place] [address], [address], [facility] 9 12:37:35 Ataxia 26066535 Active 2021 Aguilar Amaro DO [address] [place] [address], [address], [facility] 2 15:44:40 Excessive sweating 28411163 Active 2021 Aguilar Amaro DO [address] [place] [address], [address], [facility] 2 15:44:57 Dizziness 503777351 Active 2021 Aguilar Amaro DO [address] [place] [address], [address], [facility] 2 15:45:47 Muscle weakness of limb 656213492 Active 2021 Aguilar Amaro DO [address] [place] [address], [address], [facility] 2 15:46:07 Tremor 16376462 Active 2021 Aguilar Amaro, [address] [place] [address], [address], [facility] 2 15:45:59 Reduced visual acuity 84401185 Active 2021 Aguilar Amaro DO [address] [place] [address], [address], [facility] 2 15:47:13 Hypoglyce alejandro 785642717 Active 2022 Aguilar Amaro DO [address] [place] [address], [address], [facility] 3 11:00:47 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 Medical Equipment None Reported. Allergies Allergen ID Allergen Name Allergen Category Reaction Reaction Severity Criticality Documentation Date Start Date Code Code System Note Provider Name and Address Organization Details Recorded Time 2079 honey bee venom medicatio n Not available Not available Not available 12/11/2017 95749 7 RxNorm Jinny crews [facility] 8 08:21:14 2080 Dilaudid medicatio n Not available Not available Not available 12/11/2017 35861 3 RxNorm Jinny crews [facility] 8 08:25:05 208 acetamino phen / oxycodone medicatio n Not available Not available Not available 12/11/2017 89536 3 RxNorm [facility] 8 08:25:10 2082 oxycodone medicatio n Not [...] in Arterial blood by Pulse oximetry Systolic And Diastolic Provider Name and Address Organization Details Last Updated DateTime 4 175.26 cm 25 kg/m2 02243.1 1 g 61 /min 97 % 97 % 130/80 mm[Hg] Merlyn Desai [facility] 4 13:32:12 Date Recorded Body height Body mass index (BMI) Body weight Heart rate Oxygen saturation Oxygen saturation in Arterial blood by Pulse oximetry Systolic And Diastolic Provider Name and Address Organization Details Last Updated DateTime 2 175.26 cm 25.4 kg/m2 53969.1 7 g 96 /min 96 % 96 % 148/70 mm[Hg] Aguilar Amaro, [address] [place], [address] [place] [address] [facility] 2 15:02:47 Date Recorded Body height Body mass index (BMI) Body weight Heart rate Oxygen saturation Oxygen saturation in Arterial blood by Pulse oximetry Systolic And Diastolic Provider Name and Address Organization Details Last Updated DateTime 2 175.26 cm 25.1 kg/m2 44390.9 8 g 70 /min 100 % 100 % 128/68 mm[Hg] Aguilar Amaro DO [address] [place], [address] [facility] 2 15:27:29 Social History Question Answer Notes LastModified by Organizat ion Details LastModified Time Tobacco Smoking Status Former Smoker Not Available [facility] 03/08/2020 03:36:24 What Was The Date Of Your Most Recent Tobacco Screening? 07/30/2023 [email or web address] Information not available 07/30/2023 Sex: Unknown Functional [...] ICD10 Code Diagnosis Note [id number] Aguilar Amaro [facility] [address] [place] [address] 12/11/2017 09:58:16 12/11/2017 12:04:13 Cerebellar disorder 111729988 G93.9 will plan on referring to a [facility] specialist in cerebellar diseases Fatigue 92687643 R53.83 will also get lab work 6744 Aguilar Amaro [facility] [address] [place] [address] 12/20/2017 12:10:46 12/20/2017 13:13:26 Vitamin B12 deficiency (non anemic) 62883950 E53.8 start inj Dysphagia 85619590 R13.1 0 [id number] Aguilar Amaro [facility] [address] [place] [address] 01/31/2018 10:42:48 01/31/2018 13:33:34 Cobalamin deficiency 510679672 E53.8 was 174 has been doing the b12 he looks better overall will recc he start doing muscle strengthen ing and join a gym Hypertensive disorder 38 752116 I10 doing well overall has improved Vitamin B1 2 deficiency (non anemic) 31040612 E53.8 [place] [id number] Aguilar Amaro [facility] [address],[place] [address] 05/20/2018 10:04:13 05/20/2018 10:46:11 Right side sciatica 3764627079 27806 M54.31 History of tobacco use 3136501890 103 Z87.891 Arthritis 1613756 M19.90 s/p THR about 10 years ago Chronic ki dney disease 763466678 N18.9 CT of kidneys non acute Kidney stone 28105775 N2 0.0 no apparent recently passed stone or kidney swelling [id number] Aguilar Amaro [facility] [address] [facility] [address] 11/14/2018 15:06:41 11/14/2018 16:09:15 Acute non-ST segment elevation myocardial infarction 559641370 I21.4 already had cardio f/u yesterday will be having cardiac rehab will be seeing [facility] at that time as well BP well controlled Hypercholesterolemia 136 35787 E78.00 on max of lipitor Hypertensive disorder 38 662110 I10 very well controlled [id number] Aguilar Amaro [facility] [address] [facility] [address] 12/16/2018 13:27:27 12/16/2018 14:17:56 Lightheadedness 127296669 R42 as this has been worked up significan tly over the span of [address] amaro, I will defer further work up to dr. amaro as I do not want to repeat testing that have already been done Major depr essive disorder 367007071 F32.9 he denies SI he declines pursuing treatment for depression , as he feels the sources of this is just his vertigo/di zziness/li ghtheadedn ess that limits him from doing the activities he enjoys Vertigo 485748979 R42 [id number] Aguilar Amaro [facility] [address] [facility] [address] 02/27/2019 12:01:42 02/27/2019 13:44:21 Vertigo 145650805 R42 given his persistant and worsening vertiginou s symptoms we will ask a neurologis t to eval Hypertensive disorder 38 670131 I10 doing well overall has improved Costal chondritis 382801 04 M94.0 told to cont with conserv tx and this should cont to fade away Acute ST s egment elevation myocardial infarction 463864241 I21.3 has been asymptomat ic and is doing well [id number] Aguilar Amaro [facility] [address] [facility] [address] 09/09/2019 10:33:43 09/09/2019 11:37:25 Degenerative cervical spinal stenosis 899322280 M48.02 with ataxia and diplopia will need to have his neck eval told to stop cannabis will needs to have rechik after mri Hypertensive disorder 38 317487 I10 doing well overall has improved Cobalamin deficiency 190 231892 E53.8 was 174 has been doing the b12 he looks better overall will need lab [id number] Aguilar Amaro [facility] [address] [facility] [address] 10/27/2019 10:49:39 10/27/2019 12:15:48 Degeneration of cervical intervertebral disc 01102455 M50.[address] Tolentino next week will have him wait on any therapy until seen [id number] Aguilar Amaro [facility] [address] [facility] [address] 02/01/2020 11:38:29 02/01/2020 12:35:59 Pre-surgery evaluation 256693286 Z01.818 Given the patient's history and examinatio n the patient is cleared for surgery [id number] Aguilar Amaro [facility] [address] [facility] [address] 05/30/2021 08:19:19 05/30/2021 15:40:14 Chronic kidney disease 999338858 N18.9 Coronary arteriosclerosis 41231620 I25.10 Hypertensive disorder 38 832925 I10 doing well overall has improved Arthritis 2510089 M19.[address] s egment elevation myocardial infarction 860020958 I21.3 has been asymptomat ic and is doing well Nummular eczema 72847166 L30.0 [id number] Aguilar Amaro [facility] [address] [facility] [address] 08/25/2021 14:51:05 08/25/2021 16:03:16 Ataxia 81002212 R27.0 we will have him get seen by a specialist as this has got to be a more diff diagnosis than we can find Excessive sweating 45430 005 R61 we are going to have them check his temp during this episodes Dizziness 210763402 R42 ongoing from the beginning Muscle wea kness of limb 426895289 M62.81 [place] [id number] Aguilar Amaro [facility] [address] [facility] [address] 01/26/2022 15:18:10 01/26/2022 15:56:55 Excessive sweating 36144579 R61 we are going to have them check his temp during this episodes Tremor 74832647 R25.1 as part of his episodes Reduced visual acuity 13 084073 H54.7 will need a referral to opho as he is clearly having problems here [id number] Aguilar Amaro [facility] [address] [facility] [address] 04/26/2023 08:13:07 04/26/2023 11:38:[address] segment elevation myocardial infarction 070081257 I21.3 has been asymptomat ic and is doing well Hypercholesterolemia 136 26729 E78.00 will be Hypertensive disorder 38 385907 I10 doing well overall has improved Chronic ki dney disease 665738307 N18.9 Hypoglycemia 927657267 E 16.2 Cobalamin deficiency 190 707527 E53.8 was 174 has been doing the b12 he looks better overall will need lab [id number] Aguilar Amaro [facility] [address] [facility] [address] [place] [facility] [address] 07/30/2023 13:27:06 07/30/2023 15:32:02 Edema of lower extremity 829539032 R60.0 will fu in two weeksdrop down to one tab of the amlodipine Hypoglycemia 559776875 E 16.2 switched referral endo to [facility] [id number] DO [facility] [address] [facility] [address] 08/21/2023 08:41:26 08/21/2023 16:01:02 Edema of lower extremity 264174364 R60.0 fu next week Health Concerns Section Related Observation LastModified by Organization Detai ls LastModified Time None Recorded Concern Status LastModified by Organization Details LastModified Time None Recorded Advance Directives Directive None Recorded Payers Insurance Date Sequence Insurance Name Policy Number Policy Levine Covered Member ID Levine Member ID Guarantor Name 08/20/2023 1 BLUE B[employer]EFIT [employer] OF [facility] (EPO) [id number] Sangita Paniagua [id number] Toro Paniagua 08/18/2023 2 [facility] [place] BLUE (MEDICARE REPLACEMENT PPO) [id number] Toro Paniagua [id number] Toro Paniagua 09/09/2019 1 UMR [id number] Sangita Paniagua [id number] Toro Paniagua 02/15/2021 1 [place] [employer] Toro Paniagua [id number] Toro Paniagua Notes Date Note Type Note Provider Name and Address Organization Details Recorded Time 2 text/htm l here for latia has been to his neurosurg after the cervical surgery foraminectomiesstate this did not help his unsteadiness, not better with his vision , not better with his short term memory issuehe is having episodes of profuse sweating and diaphoresis that last 10-20 min have been occuring monthly and sometimes weakly Aguilar Amaro DO [address] [facility], [place], [address], [facility] 08/25/2021 15:51:36 2 text/htm l here for latia and stateshas a 24 hour headache and has ongoing pain down his neck and into shouldersstill has dizziness and lightheadedness and blurred visionlong detailed discussionhe has had cataracts done several years ago and he has had thses issues since then and has not been eval Aguilar Amaro DO [address] [place], [address], [facility] 01/26/2022 15:55:37 3 [...] same as 1 year at 160 Aguilar UriasSouleymane Amaro, DO [address] [place], [address], [facility] 04/26/2023 11:21:30 4 [...] three weekswill monitor weights KODY FRENCH [address] [place], [address], [facility] 07/30/2023 13:55:34 4 text/htm l 2 week fu The patient is participating in this appointment via telemedicine communication with a phone call/video calling service (Doxy)The patient consents to use of these platforms [...] and exam of his legs KODY FRENCH [address] [place] [address], [place], [address], [facility] 08/21/2023 14:46:33
[2024-11-25 11:18] LABS: Blood Urea Nitrogen 22 mg/dL (9-16); Estimated Glomerular Filt Rate 48
== END 2024-11-25 09:22 | disposition home or self-care (01) ==
LOC: HO.LAB 09:21
PROVIDERS: PCP Internal Medicine; Visit Provider Physician Assistant Surgical
DX: Z13.89 Encounter for screening for other disorder (principal)
CPT/HCPCS: 36415; 82565; 84520; 88121

== ENCOUNTER 2024-12-02 08:19 | Outpatient (REF) | payer OTHER, MEDICARE, SELFPAY ==
--- NOTE | ~2024-12-02 | CT_ITS ---
EXAMINATION: CT ABDOMEN PELVIS WITHOUT THEN WITH IV CONTRAST HISTORY: CARCINOMA OF SITU OF BLADDER COMPARISON: There are no prior studies available for comparison. TECHNIQUE: CT scan of the abdomen and pelvis was performed before and after the intravenous administration of 85 mL Omnipaque 350. Delayed images were also obtained. Coronal and sagittal reformatted images were generated and reviewed. Oral contrast material was not administered per department protocol. This CT exam was performed with one or more of the following dose reduction techniques: automated exposure control, adjustment of the mA and/or kV according to patient size, use of iterative reconstruction technique. DLP: 1249 mGy-cm ABDOMEN: LOWER CHEST: The visualized lung bases are clear. There is no pleural effusion. CARDIOVASCULATURE: The heart is normal in size. There is no pericardial effusion. LIVER: The liver is normal in size and contour. No liver mass is identified. The hepatic and portal veins are patent. GALLBLADDER / BILE DUCTS: The gallbladder is unremarkable. There is no intra or extrahepatic biliary ductal dilatation. SPLEEN: The spleen is normal in size. No focal splenic lesion is identified. PANCREAS: The pancreas is unremarkable in appearance. ADRENAL GLANDS: Within normal limits. KIDNEYS/RETROPERITONEUM: The right kidney is atrophic. There is a 7 mm nonobstructing calculus at the lower pole. Smaller calculi are seen at the upper and lower poles. There is a 3.6 cm cyst at the lower pole. There are multiple nonobstructing left renal calculi, the largest of which is in the interpolar region measuring 8 mm. Multiple left renal cysts are noted, the largest of which is at the lower pole measuring 7.9 cm. There is no hydronephrosis. No filling defects is seen in the intrarenal collecting systems. The ureters are normal in caliber. The distal right ureter is not well opacified. No ureteral filling defects are identified. LYMPH NODES: No abdominal or pelvic lymphadenopathy. VASCULATURE: There is an infrarenal abdominal aortic aneurysm measuring up to 3.3 cm in diameter. MESENTERY/PERITONEUM: No free fluid. No masses. An anterior abdominal wall mesh is seen in place. There is no free intraperitoneal gas. STOMACH: Postsurgical changes are noted involving the stomach. SMALL BOWEL: The small bowel is normal in caliber. COLON: There is wall thickening of the ascending and proximal transverse colon. APPENDIX: Normal. URINARY BLADDER/PELVIC ORGANS: The urinary bladder is obscured by streak artifact from a left total hip arthroplasty. The prostate is also obscured. BONES / SOFT TISSUES: There is degenerative disc disease of the spine. CT/CT abdomen pelvis wo/w IV con IMPRESSION: 1. The bladder is obscured by streak artifact from a left total hip arthroplasty. 2. Atrophic right kidney. Bilateral nephrolithiasis and renal cysts as described. 3. Wall thickening of the ascending and transverse colon. Neoplasm is not excluded, and further evaluation with colonoscopy is suggested. Electronically signed by: Toro Goldstein MD 12/02/2024 09:27 AM EDT
[2024-12-02] MEDS: iohexoL 350 MG/ML 100 ML INFUS..BTL IV (09:12)
== END 2024-12-02 08:20 | disposition home or self-care (01) ==
LOC: HO.CT 08:19
PROVIDERS: PCP Internal Medicine; Visit Provider Physician Assistant Surgical
DX: D09.0 Carcinoma in situ of bladder (principal)
CPT/HCPCS: 74178; Q9967

== ENCOUNTER → 2024-12-02 08:21 | Outpatient (BNV) | payer OTHER, MEDICARE, SELFPAY | PROVIDERS: PCP Internal Medicine; Visit Provider Radiology Diagnostic Radiology | DX: D09.0 Carcinoma in situ of bladder (principal) | CPT/HCPCS: 74178 ==

== ENCOUNTER 2025-02-01 14:52 | Outpatient (REF) | payer OTHER, MEDICARE, SELFPAY ==
[2025-02-01 15:10] LABS: MANUAL DIFF FLAG NO
[2025-02-01 15:35] LABS: Hematocrit 32.5 % (42.0-52.0); Hemoglobin 10.8 g/dl (14.0-18.0); Imm Gran Abs Auto 0.01 X10*3/uL (0.00-0.03); Imm Gran Pct Auto 0.2 % (0.0-0.4); Lymphocytes Absolute Auto 1.5 X10*3/uL (1.2-4.9); Mean Corpuscular HGB Conc 33.2 g/dl (31.0-36.0); Mean Corpuscular Hemoglobin 31.7 pg (27.0-33.0); Mean Corpuscular Volume 95.3 fL (80.0-98.0); NRBC Abs Auto 0.000 X10*3/uL (0.0-0.012); NRBC Pct Auto 0.0 /100WBC (0.0-0.2); Platelet Count 254 X10*3/uL (160-400); Red Blood Count 3.41 X10*6/uL (4.60-5.80); White Blood Count 6.3 X10*3/uL (4.8-10.8)
[2025-02-01 16:51] LABS: Anion Gap 9 (12-20); Blood Urea Nitrogen 25 mg/dL (9-16); Calcium 9.0 mg/dL (8.4-10.2); Carbon Dioxide 27 mmol/L (22-29); Chloride 108 mmol/L (96-108); Estimated Glomerular Filt Rate 55; Potassium 4.0 mmol/L (3.3-5.1); Sodium 140 mmol/L (135-145)
--- OUTSIDE RECORDS SUMMARY | 2025-02-01 17:00 | XMS_ITS | Clinical Summary ---
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 Phone Physician, Pcp Unknown Primary Care Provider Xiao vailable Encounters Date Type Department Care Team Description 01/01/2025 Lab Requisition [facility] - Main Lab [address] [facility] [place] [employer] [address] Reno Guzmán MD Personal history of malignant neoplasm of bladder; Carcinoma in situ of bladder from Last 3 Months Social History Tobacco Use Types Packs/Day Years Used Date Smoking Tobacco: Never Assessed Sex and Gender Information Value Date Recorded Sex Assigned at Not on file Legal Sex Male 3:30 PM EDT Gender Identity Not on file Sexual Orientation Not on file Plan of Treatment Health Maintenance Due Date Last Done Comments DTaP,Tdap,and Td Vaccines (1 - Tdap) 02/16/1963 Pneumococcal Vaccine: 50+ Ye ars (1 of 1 - PCV) 02/16/1994 Zoster Vaccines (1 of 2) 02/16/1994 RSV Immunization Adult Patie nts (1 - 1-dose 75+ series) 02/16/2019 Depression Screening 05/06/2024 Cholesterol Screening (Lipid Panel) 01/01/2025 Falls Risk Assessment 01/01/2025 Social Influencers of Health Screening 01/01/2025 COVID-19 Vaccine ( - 2023-2 5 season) 2025 Influenza Vaccine (#1) 2025 HIB Vaccines Aged Out No longer eligi ble based on patient's age to complete this topic HPV Vaccines Aged Out No longer eligi ble based on patient's age to complete this topic Hepatitis A Vaccines Aged Out No long er eligible based on patient's age to complete this topic Hepatitis B Vaccines Aged Out No long er eligible based on patient's age to complete this topic IPV Vaccines Aged Out No longer eligi ble based on patient's age to complete this topic MMR Vaccines Aged Out No longer eligi ble based on patient's age to complete this topic Meningococcal ACWY Vaccine Aged Out N o longer eligible based on patient's age to complete this topic Meningococcal B Vaccine Aged Out No l onger eligible based on patient's age to complete this topic RSV Immunization Patients Un nicole 20 months Aged Out No longer eligible b ased on patient's age to complete this topic Varicella Vaccines Aged Out No longer eligible based on patient's age to complete this topic Procedures Procedure Name Priority Date/Time Associated Diagnosis Comments NON-GYNECOLOGIC CYTOLOGY Routine 12/18/2024 12:00 AM EDT Personal history of malignant neoplasm of bladder Carcinoma in situ of bladder from Last 3 Months Results * Non-gynecologic cytology (12/18/2024 12:00 AM EDT) Final Diagnosis A. Urine, Voided, (): Negative for high grade urothelial carcinoma. Results of [employer] fluorescence in situ hybridization (FISH) testing: CEP3: Normal CEP7: Normal CEP17: Normal LSI 9p21: Normal Interpretation: Normal profile Controls stained appropriately. Note: The results are intended as a screening device and should be interpreted in association with other clinical and pathological findings. 01/13/2025 12:[address] [facility] Specimen A Adequacy Satisfactory for evaluation 01/13/2025 12:10 PM EDT 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 Urine, Voided, (): Received one ThinPrep slide for cytology and one ThinPrep slide for [employer] FISH 01/13/2025 12:[address] [facility] Disclaimer Unless otherwise specified, all tissue is 10% NB formalin fixed and paraffin embedded. Technical pathology services provided by [facility] at [address], [place] [address] (CLIA #[id number]/Milla Valderrama MD, Professor/Nurse Anesthetist) 01/13/2025 12:10 PM EDT [facility] Urine Urine specimen from urethra / Unknown 12/18/2024 01/01/2025 3:40 PM EDT us Reno Guzmán MD LAB CYTOLOGY ORDERABLES Final R esult [facility] [address] [place] [address], [place] [phone] from Last 3 Months Insurance [employer] [facility] [place] [address] [facility] ([facility] 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
--- OUTSIDE RECORDS SUMMARY | 2025-02-01 17:00 | XMS_ITS | Data Portability ---
Author Organization [facility], Telehealth Patient Home Address [address] [place] [address] Assessment Encounter Date Assessment Date Assessment LastModified by Organization Details LastModified Time 08/25/2021 08/25/20[place] [address] [place] [address] (FOOD PROCESSING SCIENTIST) [facility] MUST MEET 2 OUT OF [...] COVERED Not available 08/25/2021 15:45:39 01/26/2022 01/26/20[place] [address] [place] [address] (FOOD PROCESSING SCIENTIST) [facility] MUST MEET 2 OUT OF [...] COVERED Not available 01/26/2022 15:45:50 04/26/2023 04/26/2023 [address] [place] [address] (FOOD PROCESSING SCIENTIST) : MDM LOW MUST MEET 2 OF [...] Lab magnesium, serum or plasma 2022 023 [facility], [address] [place] [address], [address], 3 11:05:17 CMP, serum or plasma 2022 023 [facility], [address] [place] [address], [address], 4 11:10:32 vitamin D, 25-hydroxy , total, serum 2022 023 [facility], [address] [place] [address], [address], 3 10:09:14 vitamin B12, serum 2022 023 [facility], [address] [place] [address], [address], 3 11:05:18 insulin, serum 2022 023 [facility], [address] [place] [address], [address], 3 11:05:18 BMP, serum or plasma 2022 023 [facility], [address] [place] [address], [place], [address], 3 11:05:17 CBC w/ auto diff 2022 023 [facility], [address] [place] [address], [address], 3 11:05:17 C-peptide, serum 2022 023 [facility], [address] [place] [address], [address], 3 11:05:17 metanephri ne, fractionat ed, free, serum or plasma 2021 022 [facility], [address] [place] [address], [place], [address], 2 15:50:33 Referral ophthalmol ogist referral - absolutely strange visual acuity issues 2021 022 [email or web address] 10 Peg Harrison MD, [address], [address], 2 08:21:30 Procedures None recorded. Surgeries None recorded. Imaging None recorded. Medication Orders None recorded. Patient TargetsNo targets recorded. Patient Instructions Encounter Date Encounter Id Patient Instructions Last Modified By Organization Details Last Modified Time 08/25/2021 [id number] abnormal sweating: care instructions Not available 08/25/2021 15:51:08 dizziness: care instructions Not available 08/25/2021 15:51:08 01/26/2022 [id number] abnormal sweating: care instructions Not available 01/26/2022 15:45:20 04/26/2023 [id number] hypoglycemia: care instructions Not available 04/26/2023 11:03:50 Reason for Referral Pocket Closer Referral for Reduced visual acuity absolutely strange visual acuity issues Referring Physician: Aguilar Amaro, Internal Medicine, Encounter Date: 01/26/2022 Results Created Date Observation Date Name Description Value Unit Range Abnormal Flag Note LastModifiedBy Organization Detail LastModifiedTime 10/11/19 22 10/09/2021 MRI, brain , w/o contr ast No observ ation record ed. [facility] [address] [place], [address], 10/16/2021 09:22:52 06/03/19 24 05/30/2023 CT, abdom en + pelvi s, w/wo contr ast No observ ation record ed. [facility] [address] [place], [address], 06/04/2023 06:43:09 06/07/19 24 05/30/2023 CT, abdom en + pelvi s, w/wo contr ast No observ ation record ed. [address], [place], [address], 06/09/2023 08:25:56 07/08/19 24 07/05/2023 XR, cervi yasmin spine , 1 view No observ ation record ed. [address] [place], , 07/08/2023 15:41:36 08/16/19 24 08/06/2023 CT, cervi yasmin spine , w/o contr ast No observ ation record ed. [email or web address] [facility] (Medical Records) [address] [place], [address], 08/17/2023 10:31:14 12/03/19 25 12/02/2024 CT, abdom en + pelvi s, w/wo contr ast No observ ation record ed. [email or web address] [facility] (Medical Records) [address] [place], [address], 12/02/2024 09:53:43 12/03/19 25 12/02/2024 CT, abdom en + pelvi s, w/wo contr ast No observ ation record ed. [facility] (Medical Records) [address] [facility], [place], [address], 12/04/2024 21:17:38 Result Notes None recorded. Problems Name Problem SNOMED Code Status Onset Date Resolution Date Notes Provider Name and Address Organization Details Recorded Time Benign prostatic hyperplas ia 196848484 Active 2017 Jinny crews [facility] 8 08:25:22 Allergic rhinitis 27155237 Active 2017 [employer] [employer] [facility] 8 08:25:59 Coronary arteriosc lerosis 19222316 Active 2017 [employer] 8 08:26:08 History of angioplas ty 851887606 Active 2017 [employer] [employer] [facility] 8 08:26:14 Hypertens bettye disorder 07537376 Active 2017 [employer] [facility] 8 08:26:18 Hyperchol esterolem ia 17042338 Active 2017 [employer] [facility] 8 08:26:25 Kidney stone 12993607 Active 2017 [employer] [employer] [facility] 8 08:26:30 Steatotic liver disease 271676493 Active 2017 [employer] [facility] 8 08:26:38 Alcoholis m 8811322 Active 2017 quit 12 years ago KODY FRENCH [address] [place], [address], [facility] 0 12:08:56 Trammell's esophagus 617675792 Active 2017 [employer] [facility] 8 08:26:56 Gastroeso phageal reflux disease 310313344 [facility] 8 08:27:04 Arthritis 8637682 Active 2017 [facility] 8 08:27:11 Cobalamin deficienc y 371449153 Active 2017 [facility] 8 08:27:18 Vertigo 050315934 Active 2017 [facility] 8 08:27:24 Migraine 92403996 Active 2017 [facility] 8 08:27:30 Chronic kidney disease 315148948 Active 2017 [facility] 8 08:27:46 History of tobacco use 167054779836 3 Active 2017 quit at age 28 [facility] 08:28:[address] segment elevation myocardia l infarctio n 141106958 Active 2018 S/P BRYANT Samreen Hernandez [address], [address], [facility] 9 15:51:48 Malignant neoplasm of urinary bladder 906400361 Active 2018 Samreen Hernandez [facility] [address] [place] [address], [address], [facility] 9 15:54:22 Costal chondriti s 99620410 Active 2018 Aguilar Amaro DO [address] [place] [address], [address], [facility] 9 12:37:35 Ataxia 86477472 Active 2021 Aguilar Amaro DO [address] [place] [address], [address], [facility] 2 15:44:40 Excessive sweating 13289521 Active 2021 Aguilar Amaro, DO [address] [place] [address], [address], [facility] 2 15:44:57 Dizziness 797902747 Active 2021 Aguilar Amaro, DO [address] [place] [address], [address], [facility] 2 15:45:47 Muscle weakness of limb 332992187 Active 2021 Aguilar Amaro, DO [address] [place] [address], [address], [facility] 2 15:46:07 Tremor 07771510 Active 2021 Aguilar Amaro, DO [address] [place] [address], [address], [facility] 2 15:45:59 Reduced visual acuity 04842548 Active 2021 Aguilar Amaro, DO [address] [place] [address], [address], [facility] 2 15:47:13 Hypoglyce alejandro 935443085 Active 2022 Aguilar Amaro, DO [address] [place] [address], [address], [facility] 3 11:00:47 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 Medical Equipment None Reported. Allergies Allergen ID Allergen Name Allergen Category Reaction Reaction Severity Criticality Documentation Date Start Date Code Code System Note Provider Name and Address Organization Details Recorded Time 2079 honey bee venom medicatio n Not available Not available Not available 12/11/2017 87317 7 [facility] 8 08:21:14 2080 Dilaudid medicatio n Not available Not available Not available 12/11/2017 60562 3 [facility] 8 08:25:05 208 acetamino phen / oxycodone medicatio n Not available Not available Not available 12/11/2017 84468 3 [facility] 8 08:25:10 2082 oxycodone medicatio n Not available Not available Not available 12/11/2017 7804 [facility] 8 08:25:16 Medications Name Sig Start Date [...] Updated DateTime 4 175.26 cm 25 kg/m2 08937.1 1 g 61 /min 97 % 97 % 130/80 mm[Hg] [facility] 4 13:32:12 Date Recorded Body height Body mass index (BMI) Body weight Heart rate Oxygen saturation Oxygen saturation in Arterial blood by Pulse oximetry Systolic And Diastolic Provider Name and Address Organization Details Last Updated DateTime 2 175.26 cm 25.4 kg/m2 67398.1 7 g 96 /min 96 % 96 % 148/70 mm[Hg] Aguilar BridgettSouleymane Amaro DO [address] [place], [address], [facility] 2 15:02:47 Date Recorded Body height Body mass index (BMI) Body weight Heart rate Oxygen saturation Oxygen saturation in Arterial blood by Pulse oximetry Systolic And Diastolic Provider Name and Address Organization Details Last Updated DateTime 2 175.26 cm 25.1 kg/m2 71942.9 8 g 70 /min 100 % 100 % 128/68 mm[Hg] Aguilar UriasSouleymane Amaro DO [address] [place], [address] , [facility] 2 15:27:29 Social History Question Answer Notes LastModified by Organizat ion Details LastModified Time Tobacco Smoking Status Former Smoker Not Available [facility] 03/08/2020 03:36:24 What Was The Date Of Your Most Recent Tobacco Screening? 07/30/2023 [email or web address] Information not available 07/30/2023 Sex: Unknown Functional [...] Diagnosis SNOMED-CT Code Diagnosis ICD10 Code Diagnosis IMO Codes Diagnosis Note [id number] Aguilar Amaro DO [facility] [address] [place] [address],[place] [address] 12/11/2017 09:58:16 12/11/2017 12:04:13 Cerebellar disorder 905767605 G93.9 will plan on referring to a [facility] specialist in cerebellar diseases Fatigue 84398475 R53.83 will also get lab work [id number] Aguilar Amaro DO [facility] [address] [facility],[place] [address] 12/20/2017 12:10:46 12/20/2017 13:13:26 Vitamin B12 deficiency (non anemic) 98132992 E53.8 start inj Dysphagia 01924338 R13.1 0 [id number] Aguilar Amaro DO [facility] [address] [facility], [place] [address] 01/31/2018 10:42:48 01/31/2018 13:33:34 Cobalamin deficiency 721090686 E53.8 was 174 has been doing the b12 he looks better overall will recc he start doing muscle strengthen ing and join a gym Hypertensive disorder 38 604430 I10 doing well overall has improved Vitamin B1 2 deficiency (non anemic) 56883412 E53.8 start inj [id number] Aguilar Amaro DO [facility] [address] [facility], [place] [address] 05/20/2018 10:04:13 05/20/2018 10:46:11 Right side sciatica 6722367145 40902 M54.31 History of tobacco use 1779787767 103 Z87.891 Arthritis 7295037 M19.90 s/p THR about 10 years ago Chronic ki dney disease 167835423 N18.9 CT of kidneys non acute Kidney stone 75758713 N2 0.0 no apparent recently passed stone or kidney swelling [id number] Aguilar Amaro DO [facility] [address] [facility], [place] [address] 11/14/2018 15:06:41 11/14/2018 16:09:15 Acute non-ST segment elevation myocardial infarction 176534763 I21.4 already had cardio f/u yesterday will be having cardiac rehab will be seeing [facility] at that time as well BP well controlled Hypercholesterolemia 136 17785 E78.00 on max of lipitor Hypertensive disorder 38 024711 I10 very well controlled [id number] Aguilar Amaro DO [facility] [address] [facility], [place] [address] 12/16/2018 13:27:27 12/16/2018 14:17:56 Lightheadedness 488343278 R42 as this has been worked up significan tly over the span of [address] amaro, I will defer further work up to dr. amaro as I do not want to repeat testing that have already been done Major depr essive disorder 724740728 F32.9 he denies SI he declines pursuing treatment for depression , as he feels the sources of this is just his vertigo/di zziness/li ghtheadedn ess that limits him from doing the activities he enjoys Vertigo 673536833 R42 [id number] Aguilar Amaro [facility] [address] [facility], [facility] [facility] [address] 02/27/2019 12:01:42 02/27/2019 13:44:21 Vertigo 466014968 R42 given his persistant and worsening vertiginou s symptoms we will ask a neurologis t to eval Hypertensive disorder 38 279134 I10 doing well overall has improved Costal chondritis 019172 04 M94.0 told to cont with conserv tx and this should cont to fade away Acute ST s egment elevation myocardial infarction 538335804 I21.3 has been asymptomat ic and is doing well [id number] Aguilar Amaro [facility] [address] [facility], it[place] [facility] [address] 09/09/2019 10:33:43 09/09/2019 11:37:25 Degenerative cervical spinal stenosis 937407798 M48.02 with ataxia and diplopia will need to have his neck eval told to stop cannabis will needs to have rechik after mri Hypertensive disorder 38 835532 I10 doing well overall has improved Cobalamin deficiency 190 163323 E53.8 was 174 has been doing the b12 he looks better overall will need lab [id number] Aguilar Amaro [facility] [address] [facility], [place] [address] 10/27/2019 10:49:39 10/27/2019 12:15:48 Degeneration of cervical intervertebral disc 03084801 M50.[address] Tolentino next week will have him wait on any therapy until seen [id number] Aguilar Amaro [facility] [address] [facility],[place] [address] 02/01/2020 11:38:29 02/01/2020 12:35:59 Pre-surgery evaluation 741810752 Z01.818 Given the patient's history and examinatio n the patient is cleared for surgery [id number] Aguilar Amaro [facility] [address] [facility], ite [facility] [address] 05/30/2021 08:19:19 05/30/2021 15:40:14 Chronic kidney disease 570015985 N18.9 Coronary arteriosclerosis 90154093 I25.10 Hypertensive disorder 38 023400 I10 doing well overall has improved Arthritis 6024437 M19.[address] s egment elevation myocardial infarction 442685915 I21.3 has been asymptomat ic and is doing well Nummular eczema 59809109 L30.0 [id number] Aguilar Amaro [facility] [address] [facility], [place] [address] 08/25/2021 14:51:05 08/25/2021 16:03:16 Ataxia 56094044 R27.0 we will have him get seen by a specialist as this has got to be a more diff diagnosis than we can find Excessive sweating 65353 005 R61 we are going to have them check his temp during this episodes Dizziness 845270223 R42 ongoing from the beginning Muscle wea kness of limb 339628717 M62.81 [place] [id number] Aguilar Amaro [facility] [address] [place] [address], [place] [address] 01/26/2022 15:18:10 01/26/2022 15:56:55 Excessive sweating 16207801 R61 we are going to have them check his temp during this episodes Tremor 99582224 R25.1 as part of his episodes Reduced visual acuity 13 758941 H54.7 will need a referral to opho as he is clearly having problems here [id number] Aguilar Amaro [facility] [address] [facility], [place] [address] 04/26/2023 08:13:07 04/26/2023 11:38:[address] segment elevation myocardial infarction 315593194 I21.3 has been asymptomat ic and is doing well Hypercholesterolemia 136 98534 E78.00 will be Hypertensive disorder 38 362005 I10 doing well overall has improved Chronic ki dney disease 066156059 N18.9 Hypoglycemia 504409997 E 16.2 Cobalamin deficiency 190 834746 E53.8 was 174 has been doing the b12 he looks better overall will need lab [id number] Aguilar Amaro [facility] [address] [facility],[place] [address] 07/30/2023 13:27:06 07/30/2023 15:32:02 Edema of lower extremity 904063497 R60.0 will fu in two weeksdrop down to one tab of the amlodipine Hypoglycemia 056276758 E 16.2 switched referral endo to [facility] [id number] Aguilar Amaro [facility] [address] [facility],[place] [address] 08/21/2023 08:41:26 08/21/2023 16:01:02 Edema of lower extremity 517754695 R60.0 fu next week Health Concerns Section Related Observation LastModified by Organization Detai ls LastModified Time None Recorded Concern Status LastModified by Organization Details LastModified Time None Recorded Advance Directives Directive None Recorded Payers Insurance Date Sequence Insurance Name Policy Number Policy Levine Covered Member ID Levine Member ID Guarantor Name 08/20/2023 1 [employer] [facility] (EPO) [id number] Sangita Paniagua [id number] Toro Paniagua 08/18/2023 2 [facility] MED[place] BLUE (MEDICARE REPLACEMENT PPO) [id number] Toro Paniagua [id number] Toro Paniagua 09/09/2019 1 R [id number] Sangita Paniagua [id number] Toro Paniagua 02/15/2021 1 [place] [employer] Toro Paniagua [id number] Toro Paniagua Notes Date Note Type Note Provider Name and Address Organization Details Recorded Time 2 text/htm l ROS as noted in the HPI here for robbk has been to his neurosurg after the cervical surgery foraminectomiesstate this did not help his unsteadiness, not better with his vision , not better with his short term memory issuehe is having episodes of profuse sweating and diaphoresis that last 10-20 min have been occuring monthly and sometimes weakly Aguilar UriasSouleymane Amaro DO [address] [place], [address], [facility] 08/25/2021 15:51:36 2 text/htm l ROS as noted in the HPI here for rechk and stateshas a 24 hour headache and has ongoing pain down his neck and into shouldersstill has dizziness and lightheadedness and blurred visionlong detailed discussionhe has had cataracts done several years ago and he has had thses issues since then and has not been eval Aguilar UriasSouleymane Amaro DO [address] [place], [address], [facility] 01/26/2022 15:55:37 3 text/htm l Care Management - HypertensionReported by PatientHPIFor self care, patient reportsnot under emotional stress. For severity, patient reportssymptoms are improvinganddoes not interfere with daily activities. For associated symptoms, patient reportsno dizziness,no lightheadedness,no chest pain,no shortness of breath,no palpitations,no edema,no calf muscle cramps,no blurred vision,no confusion,no headaches, andno fatigue.ROS as noted in the HPI patient is evaluated via tele/video assessment per patient consentduring current pandemic call to tell us he has been running low blood test sugars which f=correlate with his symptomsbp has been goodhad a good cysto yesterday with urology 'relates has not lost any further weight same as 1 year at 160 Aguilar Amaro DO [address] [place], [address], [facility] 04/26/2023 11:21:30 4 text/htm l ROS as noted in the HPI c/o bilateral hip pain (R>L) with LE [...] f/u in three weekswill monitor weights KODY FERNCH [address] [place], [address], [facility] 07/30/2023 13:55:34 4 text/htm l ROS as noted in the HPI 2 week fu The patient is participating in this appointment via telemedicine communication with a phone call/video calling service ([employer])The patient consents to use of these platforms [...] exam of his legs KODY FRENCH [address] [employer], [place], [address], [facility] 08/21/2023 14:46:33
--- OUTSIDE RECORDS SUMMARY | 2025-02-01 17:00 | XMS_ITS | Encounter Summary ---
Author Organization [facility] Address [address] [place] [address] Care Team Providers Care Health Lead Name Role Phone Physician, Pcp Unknown Primary Care Provider Xiao vailable Encounter Details Date Type Department Care Team (Late st Contact Info) Description 01/01/2025 Lab Requisition [facility] - Main Lab [address] [facility] [place] [address] Reno Guzmán MD [address] [place] [phone] Personal history of malignant neoplasm of bladder; Carcinoma in situ of bladder Social History Tobacco Use Types Packs/Day Years Used Date Smoking Tobacco: Never Assessed Sex and Gender Information Value Date Recorded Sex Assigned at Not on file Legal Sex Male 3:30 PM EDT Gender Identity Not on file Sexual Orientation Not on file documented as of this encounter Plan of Treatment Not on file documented as of this encounter Procedures Procedure Name Priority Date/Time Associated Diagnosis Comments NON-GYNECOLOGIC CYTOLOGY Routine 12/18/2024 12:00 AM EDT Personal history of malignant neoplasm of bladder Carcinoma in situ of bladder documented in this encounter Results * Non-gynecologic cytology (12/18/2024 12:00 AM EDT) Final Diagnosis A. Urine, Voided, ([id number]): Negative for high grade urothelial carcinoma. Results of UroVysion fluorescence in situ hybridization (FISH) testing: CEP3: Normal CEP7: Normal CEP17: Normal LSI 9p21: Normal Interpretation: Normal profile Controls stained appropriately. Note: The results are intended as a screening device and should be interpreted in association with other clinical and pathological findings. 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 Urine, Voided, ([id number]): Received one ThinPrep slide for cytology and one ThinPrep slide for UroVysion FISH 01/13/2025 12:10 PM EDT [facility] Disclaimer Unless otherwise specified, all tissue is 10% NB formalin fixed and paraffin embedded. Technical pathology services provided by [facility] at [address] [place] [address] [address] [address] (CLIA #[id number]/Milla Valderrama MD, Bed [employer]) 01/13/2025 12:10 PM EDT [facility] Urine Urine specimen from urethra / Unknown 12/18/2024 01/01/2025 3:40 PM EDT us Reno Guzmán MD LAB CYTOLOGY ORDERABLES Final R esult [facility] [address] [place] [address], documented in this encounter Visit Diagnoses Diagnosis Personal history of malignant neoplasm of bladder Carcinoma in situ of bladder documented in this encounter Care Teams Health Lead Relationship Specialty Start Date End Date Physician, Pcp Unknown PCP - General 01/01/25 documented as of this encounter
== END 2025-02-01 14:53 | disposition home or self-care (01) ==
LOC: HO.LAB 14:52
PROVIDERS: Visit Provider Urology
DX: D09.0 Carcinoma in situ of bladder (principal); R31.9 Hematuria, unspecified
CPT/HCPCS: 36415; 80048; 85025

== ENCOUNTER 2025-02-08 10:17 | Outpatient (AMB) | payer OTHER, MEDICARE, SELFPAY ==
[2025-02-08 10:19] VITALS: BP 130/56; PULSE 62; O2SAT 95; BMI 21.9
--- NOTE | 2025-02-08 10:19 | MHC.OFFVIS ---
Vital Signs 02/08/25 10:19 Height 6 ft Weight 161 lb 2.526 oz BMI 21.9 BP 130/56 L Blood Pressure Location Lt brachial Position Sitting Pulse 62 Pulse Source Pulse Oximeter Pulse Oximetry (%) 95 Oxygen Delivery Method Room Air Intake Visit Reasons: Elevated plasma metanephrines Intake Note: Patient present today for Elevated plasma metanephrines office visit. Epic Cadence Analyst Required: No Accompanied by: Self / Same As Patient Allergies bee pollen (BEE STINGS) Allergy (Severe, Unverified 02/08/25 10:26) ANAPHYLAXIS acetaminophen (From VICODIN) Allergy (Mild, Unverified 02/08/25 10:26) ITCHY hydrocodone (From VICODIN) Allergy (Mild, Unverified 02/08/25 10:26) ITCHY oxycodone (From PERCOCET) Allergy (Mild, Unverified 02/08/25 10:26) ITCHY Medication List - Last Reconciled 02/08/25 by Anabell Whitakre MD amlodipine 5 mg PO DAILY aspirin 81 mg PO DAILY carvedilol 3.125 mg PO BID tamsulosin mg PO HPI Comments Details: 79-year-old male here today for follow up of hypoglycemia. HPI from initial visit Since 3-4 years, Complaining of spells of lightheadedness , paresthesias in hands, floaters , increased diaphoresis , clammy, Blurry vision, seen eye doctor, exam was unremarkable. munches on chocolates, salt, episodes get better in 20 mins. Patient brought in log book reviewed : variable blood sugars recorded by meter but a few episodes of hypoglycemia noted Apr 2024 at 48May 30 one episode of 50. other few episodes of blood sugars in 40s to 50s here and there, but mostly otherwise in 60s to 70s. Unrelated to food intake or fasting, can happen any time of the day. Active and doing well otherwise. No history of liver disease CKD stage 3a, from HTN? EGFR 55. 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 Interval history 10/06/2024 08/20/2024 Did a prolonged fast for 30 to 48 hours, despite that his blood glucose only dropped to 87, hence hypoglycemia panel not useful. Mildly elevated plasma metanephrine, normetanephrine levels, however repeat on 08/28/2024 24 hour urine levels were normal. He forgot to bring glucometer today but did bring his log book which again showed that he continues to have these spells randomly where he is diaphoretic, sometimes dizzy or lightheaded, there is no specific pattern but most of these happen 2-3 hours after a meal and not fasting. Blood sugars can be anywhere from early 100s to as low as 56. Not lower. I did notice a pattern that most nights he is having refined sugars like cookies and ice cream after which a few hours later he will have hypoglycemia. Interval history 02/08/2025 Patient again brought in his log book today which showed he continues to have the episodes of dizziness and lightheadedness intermittently. These episodes do not have a specific pad. Blood sugars can be sometimes low in the 50s, but he does have some numbers in the 130s is. Mostly his blood sugars are in the 70s or 90s. He has been doing somewhat better with his nutritional intake. Quit tobacco use at age 27 smokes marijuana Retired from [employer] job Past medical history CAD s/p PCI 2021 HTN Prediabetes Bladder cancer s.p chemo and surgery with history of recurrence , now in remission Past surgical history Back surgeries hiatal Hernia repair Left hip replacement Knee repairs Bladder cancer resection Family history Father : CAD Sister : breast cancer Physical exam General: sitting comfortably in no acute distress HEENT: normocephalic/atraumatic, moist oral mucosa Neck: supple Cardiac: normal heart sounds Pulm: normal breath sounds B/L, no added breath sounds Abd: not distended, no tenderness Laboratory Tests 04/27/18 09/10/19 05/03/23 08:41 10:13 10:12 Random Glucose 112 104 146 H Estimat Average Glucose Hemoglobin A1c % 05/24/23 05/05/24 08:26 08:28 Random Glucose 101 Estimat Average Glucose 111 114 Hemoglobin A1c % 5.5 5.6 Laboratory Tests 02/21/22 06:54 Plasma Free Metaneph 81 H Plasma Free Normeta 198 H Plas Total Metaneph 279 H Laboratory Tests 08/20/24 08/28/24 11:19 08:00 Sodium 141 Potassium 4.4 Creatinine 1.15 Estimated GFR > 60 Random Glucose 87 Insulin Level 5 Proinsulin 7.7 C-Peptide 3.51 Calcium 9.6 TSH 1.28 Insulin-like GF II 603 Random Cortisol 9.8 Plasma Free Metaneph 76 H Plasma Free Normeta 177 H Plas Total Metaneph 253 H Ur 24 Hour Volume 725 Ur Creatinine 24 Hour 1.2 Urine Total Volume 725 U Free Metanephrine 252 U Normetanephrine 24h 354 U Tot Metanephrine 24h 606 Ur Dopamine 24 Hr 201 U Tot Catecholamine 24h 34 Urine Creatinine 1.23 [facility] Medical History (Updated 08/20/24 @ 10:49 by Anabell Whitaker MD) Hypoglycemia Elevated plasma metanephrines Assessment & Plan Assessment & Plan (1) Hypoglycemia: Code(s): E16.2 - Hypoglycemia, unspecified Category: Medical Plan: 79-year-old male with a history of CAD status post PCI, history of bladder cancer status post resection and chemotherapy, hypertension who is here today for follow up of concerns of hypoglycemia. He has been having spells of lightheadedness/dizziness, diaphoresis, clamminess, palpitations with no relation to food intake, and no relation to timing, for the past 3-4 years. He has a blood glucose meter, no history of diabetes mellitus, and he has been recording his episodes and some blood glucose readings were noted to be low in the 40s and 50s, otherwise during some episodes blood sugars were normal. He does report improvement within 20 minutes after he eats sugary and salty snacks. . He has had hypoglycemia panel done in April 2024 however his blood sugar was normal so that is not useful. He is not on any medications that cause hypoglycemia. No history of liver disease. He does have CKD stage IIIA per his last EGFR of 55, likely due to history of hypertension? He is not on any insulin, denies any exposure to diabetic medications at home. Though his is a nurse. No alcohol use. He is otherwise healthy. 08/20/2024 Did a prolonged fast for 30 to 48 hours, despite that his blood glucose only dropped to 87, hence hypoglycemia panel not useful. Mildly elevated plasma metanephrine, normetanephrine levels, however repeat on 08/28/2024 24 hour urine levels were normal. his log book which again showed that he continues to have these spells randomly where he is diaphoretic, sometimes dizzy or lightheaded, there is no specific pattern but most of these happen 2-3 hours after a meal and not fasting. Blood sugars can be anywhere from early 100s to as low as 56. Not lower. Previously we did notice a pattern that most nights he is having refined sugars like cookies and ice cream after which a few hours later he will have hypoglycemia. He is still having cereal on a lot of the nights. He has been having trouble incorporating more protein in his diet. At this point since some of his episodes are not related to low blood sugars, I do not think these are truly hypoglycemic episodes and his diaphoresis, lightheadedness could be due to some other etiology. He might benefit from further workup through PCP. He does have a history of cervical pain. Some of these episodes he describes a shooting pain down his neck. Could possibly be related to cervical pain. I have asked him to discuss it with a his PCP. For his habit of snacking on refined sugars mostly in the later part of the day, I discussed that some of these refined sugars can cause and hyper insulinmic surge followed by hypoglycemia. While this is mostly seen in bariatric surgery patients, it might be happening in his case as well. We did a lot of dietary education regarding avoiding refined meals and doing frequent small meals with high protein intake. At this point he does not need follow up with me. He can follow up as needed if blood sugars continue to be 50s consistently with these episodes. At this time there is no fixed hypoglycemia pattern. And despite prolonged fasting back in August 2024 his blood sugars only came down to 80s. So hypoglycemia panel could not be done. Plan See above Coding Level of Care Code Est Pt Level 3 (00798) Diagnoses Hypoglycemia E16.2
--- OUTSIDE RECORDS SUMMARY | 2025-02-08 12:00 | XMS_ITS | Encounter Summary ---
Author Organization [facility] Address [address] [place] [address] Care Team Providers Care Rotary Furnace Tender Name Role Phone Physician, Pcp Unknown Primary Care Provider Xiao vailable Encounter Details Date Type Department Care Team (Late st Contact Info) Description 01/01/2025 Lab Requisition [facility] - Main Lab [address] [facility] [place] [address] Reno Guzmán MD [address] [place] [phone] Personal history of malignant neoplasm of bladder; [...] AM EDT) Final Diagnosis A. Urine, Voided, ([id number]): Negative for high grade urothelial carcinoma. Results of UroVysion fluorescence in situ hybridization (FISH) testing: CEP3: Normal CEP7: Normal CEP17: Normal LSI 9p21: Normal Interpretation: Normal profile Controls stained appropriately. Note: The results are intended as a screening device and should be interpreted in association with other clinical and pathological findings. 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 Urine, Voided, ([id number]): Received one ThinPrep slide for cytology and one ThinPrep slide for UroVysion FISH 01/13/2025 12:10 PM EDT [facility] Disclaimer Unless otherwise specified, all tissue is 10% NB formalin fixed and paraffin embedded. Technical pathology services provided by [facility] at [address] [place] [address] [address], [place] [address] (CLIA #[id number]/Milla Valderrama MD, Homeopathic Doctor) 01/13/2025 12:10 PM EDT [facility] Urine Urine specimen from urethra / Unknown 12/18/2024 01/01/2025 3:40 PM EDT us Reno Guzmán MD LAB CYTOLOGY ORDERABLES Final R esult [facility] [address] [place] [address], documented in this encounter Visit Diagnoses Diagnosis Personal history of malignant neoplasm of bladder Carcinoma in situ of bladder documented in this encounter Care Teams Rotary Furnace Tender Relationship Specialty Start Date End Date Physician, Pcp Unknown PCP - General 01/01/25 documented as of this encounter
--- OUTSIDE RECORDS SUMMARY | 2025-02-08 12:00 | XMS_ITS | Clinical Summary ---
Author Organization [address] [facility] Address [address] [place] [address] Phone Care Team Providers Care Trekking Guide Name Role Phone Physician, Pcp Unknown Primary Care Provider Xiao vailable Encounters Date Type Department Care Team Description 02/04/2025 Lab Requisition [facility] [address] [place] [address] Zahra Vick PA Urinary tract infection, site not specified; Gross hematuria 01/01/2025 Lab Requisition [facility] [address] [place] [address] Reno Guzmán MD Personal history [...] Procedure Name Priority Date/Time Associated Diagnosis Comments CULTURE URINE Routine 02/04/2025 12:00 AM EDT Urinary tract infection, site not specified Gross hematuria NON-GYNECOLOGIC CYTOLOGY Routine 12/18/2024 12:00 AM EDT Personal history of malignant neoplasm of bladder Carcinoma in situ of bladder from Last 3 Months Results * Culture urine (02/04/2025 12:00 AM EDT) Pathologist [facility] Culture, Urine No growth 02/05/2025 2:15 PM EDT [facility] Urine Urine specimen obtained by clean catch procedure / Unknown 02/04/2025 02/04/2025 6:55 PM EDT us Zahra GATES LAB MICROBIOLOGY - GENERAL ORD ERABLES Final Result [facility]) [facility] [address] [place] [address], [place] [phone] * Non-gynecologic cytology (12/18/2024 12:00 AM EDT) Final Diagnosis A. Urine, Voided, ([id number]): Negative for high grade urothelial carcinoma. Results of UroVysion fluorescence in situ hybridization (FISH) testing: CEP3: Normal CEP7: Normal CEP17: Normal LSI 9p21: Normal Interpretation: Normal profile Controls stained appropriately. Note: The results are intended as a screening device and should be interpreted in association with other clinical and pathological findings. 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 Urine, Voided, ([id number]): Received one ThinPrep slide for cytology and one ThinPrep slide for UroVysion FISH 01/13/2025 12:10 PM EDT [facility] Disclaimer Unless otherwise specified, all tissue is 10% NB formalin fixed and paraffin embedded. Technical pathology services provided by [facility] at [address], [place] [address] (CLIA #[id number]/Milla Valderrama MD, Siene Maker) 01/13/2025 12:10 PM EDT [facility] Urine Urine specimen from urethra / Unknown 12/18/2024 01/01/2025 3:40 PM EDT us Reno Guzmán MD LAB CYTOLOGY ORDERABLES Final R esult [facility]) [facility] [address] [place] [address], from Last 3 Months Insurance [employer] [facility] ([facility]) Care Teams Trekking Guide Relationship Specialty Start Date End Date Physician, Pcp Unknown PCP - General 01/01/25
--- OUTSIDE RECORDS SUMMARY | 2025-02-08 12:00 | XMS_ITS | Encounter Summary ---
Author Organization [facility] Address [address] [place] [address] Care Team Providers Care Director Of Event Management Name Role Phone Physician, Pcp Unknown Primary Care Provider Xiao vailable Encounter Details Date Type Department Care Team (Late st Contact Info) Description 02/04/2025 Lab Requisition [facility] - Main Lab [address] [place] [phone] Zahra Vick PA [address] [place] [address] Urinary tract infection, site not specified; Gross hematuria Social History Tobacco Use Types Packs/Day Years [...] tract infection, site not specified Gross hematuria documented in this encounter Results * Culture urine (02/04/2025 12:00 AM EDT) Culture, Urine No growth 02/05/2025 2:15 PM EDT [facility] Urine Urine specimen obtained by clean catch procedure / Unknown 02/04/2025 02/04/2025 6:55 PM EDT us Zahra GATES LAB MICROBIOLOGY - GENERAL ORD ERABLES Final Result [facility] [address] [place] [address], documented in this encounter Visit Diagnoses Diagnosis Urinary tract infection, site not specified Gross hematuria documented in this encounter Care Teams Director Of Event Management Relationship Specialty Start Date End Date Physician, Pcp Unknown PCP - General 01/01/25 documented as of this encounter
== END 2025-02-08 13:12 | disposition home or self-care (01) ==
LOC: HO.ENCR 10:18
PROVIDERS: PCP Internal Medicine; Visit Provider Student in an Organized Health Care Education/Training Program
DX: E16.2 Hypoglycemia, unspecified (principal)
CPT/HCPCS: 99213

== ENCOUNTER 2025-04-25 14:36 | Outpatient (REF) | payer OTHER, MEDICARE, SELFPAY ==
--- NOTE | ~2025-04-25 | MR_ITS ---
CLINICAL HISTORY: Spinal stenosis Exam: Unenhanced MRI cervical spine. Comparison: 07/17/2022. Findings: Cervical vertebral body heights and alignment appear grossly stable compared with the prior exam, with some loss of normal cervical lordosis at lower cervical levels. There is marked disc desiccation and disc space narrowing C5-7 and similar disc space narrowing at C3-4. Signal intensity within the cervical spine appears maintained. Axial images reveal the following: C2-3: No focal disc herniation, spinal or foraminal compromise. C3-4: No focal disc herniation, spinal or foraminal compromise. C4-5: There is fairly significant bilateral facet arthropathy. No focal disc herniation. No significant spinal or foraminal stenoses. C5-6: There is similar fairly significant posterior disc-osteophyte complex and likely bilateral uncovertebral joint hypertrophy. There is no significant appearing spinal stenoses. There is at least moderate left foraminal stenoses. No significant right foraminal stenoses. C6-7: Similar keap-ln-medkadgz posterior disc-osteophyte complex and bilateral uncovertebral joint hypertrophy. No significant spinal stenoses. Similar at least mild bilateral foraminal stenoses. Impression: 1. Similar-appearing multilevel degenerative disc and facet as well as uncovertebral joint disease, more significant C5-7, with similar-appearing foraminal stenoses as described above. This document has been electronically signed by: Jesus Figueroa MD on 04/27/2025 17:29:05
--- OUTSIDE RECORDS SUMMARY | 2025-04-25 14:48 | XMS_ITS | Encounter Summary ---
Author Organization [facility] Address [address] [place] [address] Care Team Providers Care Jig Grinder Name Role Phone Physician, Pcp Unknown Primary Care Provider Xiao vailable Encounter Details Date Type Department Care Team (Late st Contact Info) Description 02/04/2025 Lab Requisition [facility] - Main Lab [address] [place] [phone] Zahra Vick PA [address] [place] [address] Urinary tract infection, site not specified; Gross [...] Urine No growth 02/05/2025 2:15 PM EDT [facility] Urine Urine specimen obtained by clean catch procedure / Unknown 02/04/2025 02/04/2025 6:55 PM EDT us Zahra GATES LAB MICROBIOLOGY - GENERAL ORD ERABLES Final Result [facility] [address] [place] [address], documented in this encounter Visit Diagnoses Diagnosis Urinary tract infection, site not specified Gross hematuria documented in this encounter Care Teams Jig Grinder Relationship Specialty Start Date End Date Physician, Pcp Unknown PCP - General 01/01/25 documented as of this encounter
--- OUTSIDE RECORDS SUMMARY | 2025-04-25 14:48 | XMS_ITS | Continuity of Care Document ---
Author Organization JERONIMO [facility] ([facility])marisel [facility] Internal [facility] Address [address] [place] [address] [place] [address] Assessment No assessment recorded. Plan of Treatment Reminders Order Date Submit Date Provider Last Modified By Organization Details Last Modified Time Details Appointments None record ed. Lab None record ed. Referral None record ed. Procedures None record ed. Surgeries None record ed. Imaging None record ed. Medication Orders None record ed. Patient TargetsNo targets recorded. Patient Instructions Encounter Date Encounter Id Patient Instructions Last Modified By Organization Details Last Modified Time 02/26/2025 [id number] hypoglycemia: care instructions Not available 02/26/2025 14:25:38 Reason for Referral None Reported. Problems Name Problem SNOMED Code Status Onset Date Resolution Date Notes Provider Name and Address Organization Details Recorded Time Benign prostatic hyperplas ia 507324960 Active 2017 Jinny crews [facility] 8 08:25:22 Allergic rhinitis 52421548 Active 2017 Jinny crews [facility] 8 08:25:59 Coronary arteriosc lerosis 85346890 Active 2017 Jinny crews [facility] 8 08:26:08 History of angioplas ty 228840732 Active 2017 Jinny crews [facility] 8 08:26:14 Hypertens bettye disorder 32893790 Active 2017 Jinny crews [facility] 8 08:26:18 Hyperchol esterolem ia 03333538 Active 2017 Jinny crews [facility] 8 08:26:25 Kidney stone 84042106 [facility] 08:[facility]30 Steatotic liver disease 431265809 Active 2017 [facility] 8 08:26:38 Alcoholis phong 6252319 Active 2017 quit 12 years ago KODY FRENCH [address] [place], [address], [facility] 0 12:08:56 Trammell's esophagus 196511321 Active 2017 [facility] 8 08:26:56 Gastroeso phageal reflux disease 092465360 Active 2017 Jinny Quintanilla eleonora [facility] 8 08:27:04 Arthritis 9762214 Active 2017 Jinny crews [facility] 8 08:27:11 Cobalamin deficienc y 387195544 Active 2017 Jinny Dwight crews [facility] 8 08:27:18 Vertigo 243365182 Active 2017 Jinny Dwight crews [facility] 8 08:27:24 Migraine 34553295 Active 2017 Jinny Dwight crews [facility] 8 08:27:30 Chronic kidney disease 817756519 Active 2017 Jinnypramod Quintanilla eleonora [facility] 8 08:27:46 History of tobacco use 982505755242 3 Active 2017 quit at age 28 Jinnypramod crews [facility] 8 08:28:[address] segment elevation myocardia l infarctio n 184883756 Active 2018 S/P BRYANT Samreen Hernandez [address], [address], [facility] Internal [facility] 9 15:51:48 Malignant neoplasm of urinary bladder 367939733 Active 2018 ASTRID Gallo [address] [place] [address], [address], [facility] 9 15:54:22 Costal chondriti s 20014766 Active 2018 Aguilar Taylor, DO [address] [place] [address], [address], [facility] 9 12:37:35 Ataxia 94354599 Active 2021 Aguilar Taylor, DO [address] [place] [address], [address], [facility] 2 15:44:40 Excessive sweating 98529770 Active 2021 Aguilar Taylor, DO [address] [place] [address], [address], [facility] 2 15:44:57 Dizziness 504529720 Active 2021 KODY FRENCH [address] [place] [address], [address], [facility] 5 16:32:29 Muscle weakness of limb 475070200 Active 2021 Aguilar Taylor, DO [address] [place] [address], [address], [facility] 2 15:46:07 Tremor 41073530 Active 2021 Aguilar Taylor, DO [address] [place] [address], [address], [facility] 2 15:45:59 Reduced visual acuity 98696826 Active 2021 Aguilar Taylor DO [address] [place] [address], [address], [facility] 2 15:47:13 Hypoglyce alejandro 952020922 Active 2022 Aguilar Taylor DO [address] [place] [address], [address], [facility] 5 14:24:54 Insulin resistanc e 108390751 Active 2023 Aguilar Taylor, [address] [place], [address], [facility] 4 16:16:25 Edema of lower extremity 892889368 Active 2023 KODY FRENCH [address] [place] [address], [address], [facility] 4 13:54:09 Nausea and vomiting 34666043 Active 2024 KODY FRENCH [address] [place] [address], [address], [facility] 5 10:48:42 Urinary frequency due to benign prostatic hypertrop hy 947257848195 102 Active 2024 KODY FRENCH [address] [place] [address], [address], [facility] 5 16:28:43 Hypoadren alism 008585839 Active 2024 KODY FRENCH [address] [place] [address], [address], [facility] Internal [facility] 5 16:40:39 Spinal stenosis in cervical region 24111326 Active 2024 KODY FRENCH [address] [place] [address], [address], [facility] 5 16:41:56 Hypercort isolism 59446888 Active 2024 KODY FRENCH [address] [place] [address], [address], [facility] 5 16:45:48 Problem Notes None recorded. Medical Equipment None Reported. Allergies Allergen ID Allergen Name Allergen Category Reaction Reaction Severity Criticality Documentation Date Start Date Code Code System Note Provider Name and Address Organization Details Recorded Time 2079 honey bee venom medicatio n Not available Not available Not available 12/11/2017 05142 7 [facility] 8 08:21:14 2080 Dilaudid medicatio n Not available Not available Not available 12/11/2017 02607 3 RxNorm Jinny crews [facility] 8 08:25:05 2082 acetamino phen / oxycodone medicatio n Not available Not available Not available 12/11/2017 32425 3 RxNorm Jinny crews [facility] 8 08:25:10 3 oxycodone medicatio n Not available Not available Not available 12/11/2017 7804 RxNorm Jinny crews [facility] 8 08:25:16 9506 acetamino phen / hydrocodo ne medicatio n Not available Not available Not available 03/19/20252011 2 RxNorm unrec ogniz ed react ion (text : Other (See Comme nts), code: OTH) (from [facility]) Not Available michelle - External Data Service - prod 5 03:28:23 Medications Name Sig Start Date Stop Date [...] completed Not Available Not Available Not Available sulfamethox azole 800 mg-trimetho prim 160 mg tablet TAKE 1 TABLET BY MOUTH TWICE DAILY FOR 5 DAYS WITH PLENTY OF WATER 02/23 completed Not Available Not Available Not Available carvedilol 3.125 mg tablet take 1 tablet By Mouth 2 times a day active Not Available Not Available No t Available ondansetron 8 mg disintegrat ing tablet DISSOLVE 1 tablet BY MOUTH TWICE DAILY NEEDED 02/26 completed Not Available Not Available Not Available alprazolam 0.5 mg tablet 11/14 completed Not Available Not Available Not Available tamsulosin 0.4 mg capsule TAKE 1 CAPSULE BY MOUTH DAILY directed active Not Available Not Available No t [...] TAKE 1 CAPSULE BY MOUTH TWICE DAILY 02/26 completed Not Available Not Available Not Available epinephrine 0.3 mg/0.3 mL injection, auto-inject or INJECT ENTIRE CONTENTS OF 1 PEN NEEDED FOR ANAPHYLAC TIC SYMPTOMS. CALL 911 AFTER ADMINISTR ATION. active Not Available Not Available No t Available ibuprofen 600 mg tablet 05/20 completed Not Available Not Available Not Available BD Integra Syringe 3 mL 23 gauge x 1 Use as directed for monthly B12 injection s 02/26 completed Not Available Not Available Not Available Aspir-81 Once a day active Not Available Not Available No t Available Brilinta 90 mg tablet Take 1 tablet every day by oral route for 30 days. 08/25 completed Not Available Not Available Not Available Brilinta BID 12/16 completed Not Available Not Available Not Available Vitals Date Recorded Body height Body mass index (BMI) Body weight Heart rate Oxygen saturation Systolic And Diastolic Provider Name and Address Organization Details Last Updated DateTime 5 175.26 cm 23.7 kg/m2 14364.9 3 g 60 /min 99 % 116/78 mm[Hg] [facility] 5 14:03:51 Social History Question Answer Notes LastModified by Organizat ion Details LastModified Time Tobacco Smoking Status Former Smoker Not Available [employer] 03/08/2020 03:36:24 What Was The Date Of Your Most Recent Tobacco Screening? 03/19/2025 [email or web address] Information not available 03/19/2025 Sex: Unknown Functional Status Question Answer Note [...] ICD10 Code Diagnosis IMO Codes Diagnosis Note [id number] Aguilar Taylor DO [facility] [address],[place] [address] 02/26/2025 13:42:26 03/01/2025 09:02:15 Depression screening 106905652 Z13.31 Hypoglycemia 664950949 E 16.2 80423 given freestye kartik to monitor sugar and see what happens with these episodes Health Concerns Section Related Observation LastModified by Organization Detai ls LastModified Time None Recorded Concern Status LastModified by Organization Details LastModified Time None Recorded Payers Encounter Date Sequence Insurance Name Policy Number Policy Levine Covered Member ID Levine Member ID Guarantor Name 02/26/2025 1 [employer] [facility] (EPO) [id number] Sangita Paniagua [id number] Toro Paniagua 02/26/2025 2 [facility]: MEDICAR E PPO BLUE (MEDICARE REPLACEMENT PPO) [id number] Toro Paniagua [id number] Toro Paniagua Notes Date Note Type Note Provider Name a nd Address Organization Details Recorded Time 02/26/2025 text/html ROS as noted in the HPI hewre for rechk and is doing th e same he has been seen and eval by the endocrine Aguilar Taylor DO [address] [place] [address], [address], [facility] 02/26/2025 14:26:10
--- OUTSIDE RECORDS SUMMARY | 2025-04-25 14:48 | XMS_ITS | Encounter Summary ---
Author Organization [facility] Address [address] [place] [address] Care Team Providers Care Food Service Name Role Phone Physician, Pcp Unknown Primary Care Provider Xiao vailable Encounter Details Date Type Department Care Team (Late st Contact Info) Description 01/01/2025 Lab Requisition [facility] - Main Lab [address] [facility] [place] [address] Reno Guzmán MD [address] [place] [id number] Personal history of malignant neoplasm of bladder; [...] AM EDT) Final Diagnosis A. Urine, Voided, ([id number]): Negative for high grade urothelial carcinoma. Results of UroVysion fluorescence in situ hybridization (FISH) testing: CEP3: Normal CEP7: Normal CEP17: Normal LSI 9p21: Normal Interpretation: Normal profile Controls stained appropriately. Note: The results are intended as a screening device and should be interpreted in association with other clinical and pathological findings. 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 Urine, Voided, ([id number]): Received one ThinPrep slide for cytology and one ThinPrep slide for UroVysion FISH 01/13/2025 12:10 PM EDT [facility] Disclaimer Unless otherwise specified, all tissue is 10% NB formalin fixed and paraffin embedded. Technical pathology services provided by [facility] at [address] [place] [address] [address] [address] (CLIA #[id number]/Milla Valderrama MD, Smudger) 01/13/2025 12:10 PM EDT [facility] Urine Urine specimen from urethra / Unknown 12/18/2024 01/01/2025 3:40 PM EDT us Reno Guzmán MD LAB CYTOLOGY ORDERABLES Final R esult [facility] [address] [place] [address], documented in this encounter Visit Diagnoses Diagnosis Personal history of malignant neoplasm of bladder Carcinoma in situ of bladder documented in this encounter Care Teams Food Service Relationship Specialty Start Date End Date Physician, Pcp Unknown PCP - General 01/01/25 documented as of this encounter
--- OUTSIDE RECORDS SUMMARY | 2025-04-25 14:48 | XMS_ITS | Clinical Summary ---
Author Organization [address] [facility] Address [address] [place] [address] Phone Care Team Providers Care Electrical Panel Builder Name Role Phone Physician, Pcp Unknown Primary Care Provider Xiao vailable Encounters Date Type Department Care Team Description 02/10/2025 Lab Requisition [facility] [address] [place] [address] Zahra Vick PA Gross hematuria 02/04/2025 Lab Requisition [facility] [address] [place] [address] Zahra Vick PA Urinary tract infection, site not specified; Gross hematuria from Last 3 Months Social History Tobacco [...] Health Screening 01/01/2025 COVID-19 Vaccine ( - 2024-2 6 season) 2025 Influenza Vaccine (#1) 2025 HIB [...] Date/Time Associated Diagnosis Comments NON-GYNECOLOGIC CYTOLOGY Routine 02/04/2025 12:00 AM EDT Gross hematuria CULTURE URINE Routine 02/04/2025 12:00 AM EDT Urinary tract infection, site not specified Gross hematuria from Last 3 Months Results * Culture urine (02/04/2025 12:00 AM EDT) Culture, Urine No growth 02/05/2025 2:[address] [facility] Urine Urine specimen obtained by clean catch procedure / Unknown 02/04/2025 02/04/2025 6:55 PM EDT us Zahra GATES LAB MICROBIOLOGY - GENERAL ORD ERABLES Final Result [facility] [address] [place] [address], * Non-gynecologic cytology (02/04/2025 12:00 AM EDT) Addendum Results of UroVysion fluorescence in situ hybridization (FISH) testing: CEP3: Normal CEP7: Normal CEP17: Normal LSI 9p21: Normal Interpretation: Normal profile Controls stained appropriately. Note: The results are intended as a screening device and should be interpreted in association with other clinical and pathological findings. 02/25/2025 9:[address] [facility] Addendum electronically signed by Mark Anthony Piña MD on 02/25/2025 at 0942 EDT Final Diagnosis A. Urine, Voided, ([id number]): Negative for high grade urothelial carcinoma. Abundant blood and acute inflammatory cells are present. Note: UroVysion testing to follow. 02/25/2025 9:[address] [facility] at 1226 EDT Specimen A Adequacy Satisfactory for evaluation 02/25/2025 9:42 AM [facility] Clinical Information Gross hematuria R31.0 Urine Cytology/FISH (now) 02/25/2025 9:42 AM [facility] Gross Description A. Urine, Voided, ([id number]): Received one ThinPrep slide for cytology and one ThinPrep slide for UroVysion FISH 02/25/2025 9:[address] [facility] Disclaimer Unless otherwise specified, all tissue is 10% NB formalin fixed and paraffin embedded. Technical pathology services provided by [facility] at [address] [place] [address] [address] [address] (CLIA #[id number]/Milla Valderrama MD, Jewel Gauger) 02/25/2025 9:[address] [facility] Urine Urine specimen from urethra / Unknown 02/04/2025 02/10/2025 2:09 PM EDT us Zahra GATES LAB CYTOLOGY ORDERABLES Edited Result - Final [facility]) [facility] [address] [place] [address], from Last 3 Months Insurance [place] [employer] [facility] Care Teams Electrical Panel Builder Relationship Specialty Start Date End Date Physician, Pcp Unknown PCP - General 01/01/25
--- OUTSIDE RECORDS SUMMARY | 2025-04-25 14:48 | XMS_ITS | Clinical Summary ---
Author Organization [facility] Address [address] [place] [address] Care Team Providers Care At Risk Specialist Name Role Phone Aguilar Taylor MD Primary Care Provider [phone] Allergies Active Allergy Reactions Criticality Noted Date Comments Hydrocodone-Acetaminophe n Other (See Comments) 07/27/2011 Other Other (See Comments) 07/27/2011 Bee Sting. Other Other (See Comments) 07/27/2011 Adhesive Tape. 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 Overview (07/05/2014): Diverticulum Of The Bladder Family History Medical History Relation Comments Heart attack Father Acute Myocardial Infarction Breast cancer Mother Breast Cancer Breast cancer Sister Breast Cancer Relation Status Comments Father Mother Sister Social History Tobacco Use Types Packs/Day Years Used Date Smoking Tobacco: Never Assessed Sex and Gender Information Value Date Recorded Sex Assigned at Not on file Legal Sex Male 3:01 AM EST Gender Identity Not on file Sexual Orientation Not on file Last Filed Vital Signs Vital Sign Reading Time Taken Comments Blood Pressure 142/76 07/27/2011 8:27 AM EDT Pulse 56 07/27/2011 8:27 AM EDT Temperature - - Respiratory Rate 16 07/27/2011 8:27 AM EDT Oxygen Saturation - - Inhaled Oxygen Concentration - - Weight 91.8 kg (202 lb 6.4 oz) 07/27/2011 8:27 A M EDT Height 182.9 cm (6') 07/27/2011 8:27 AM EDT Body Mass Index 27.45 07/27/2011 8:27 AM EDT Plan of Treatment Not on file Insurance [facility] Care Teams At Risk Specialist Relationship Specialty Start Date End Date Aguilar Taylor MD [address] [place] [phone] PCP - General Internal Medicine 10/11/15
--- OUTSIDE RECORDS SUMMARY | 2025-04-25 14:48 | XMS_ITS | Encounter Summary ---
Author Organization [facility] Address [address] [place] [address] Care Team Providers Care Adjunct Latin Professor Name Role Phone Silviano MARTINEZ MD, Nathan Primary Care Provider [phone] Aguilar Taylor MD Primary Care Provider [phone] Encounter Details Date Type Department Care Team (Late st Contact Info) Description 07/27/2011 Clinical Conversion Encounter Department of Urology [facility] Urology [address] [place] [address] Asim Urias MD [address] [place] [address] Social History Tobacco Use Types Packs/Day Years Used Date Smoking Tobacco: Never Assessed Sex and Gender Information Value Date Recorded Sex Assigned at Not on file Legal Sex Male 3:01 AM EST Gender Identity Not on file Sexual Orientation Not on file documented as of this encounter Progress Notes * Asim Urias MD - 06/19/2014 10:37 AM EST [id number],[place], [place]. Reason For Visit Bladder cancer second opinion History of Present Illness Mr. Paniagua is a 66 year old man whose primary urologist is Dr. Reno Guzmán. He presented in the fall of 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 He was given BCG induction immunotherapy for 6 weeks. One month after completing BCG he was taken back to the operating room. 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 Random biopsies throughout the remainder of the bladder as well as the prostatic urethra did not show any carcinoma in situ. Cytology 06/21/11 was negative. Cytology 01/2011 inflamed, but also negative. Multiple treatment options have been discussed including continued BCG, partial cystectomy, radical cystectomy with urinary diversion. It is of note that the carcinoma in situ is intimately related to the right ureteral orifice. Partial cystectomy with right ureteral reimplantation has been suggested. 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 Vitals [facility] Vitals Data Includes: Current Encounter 27Jul2011 08:27AM Systolic 142 Diastolic 76 Heart Rate 56 BMI Calculated 27.41 BSA Calculated 2.14 Height 6 ft Weight 202 lb 6.4 oz Respiration 16 Pain Score 7 Pain Site right hip pain MD Notified Yes Allergy Status Reviewed Yes Safe at Home Yes Physical Exam PHYSICAL EXAM: GENERAL: He appears well. No distress. NEURO: Cranial nerves grossly intact. Normal gait. HEENT: sclera anicteric, oropharynx clear BACK: No CVA tenderness CHEST: Clear to auscultation bilaterally HEART: Tones are regular, without adventitious sounds ABDOMEN: Soft, nontender, nondistended without masses, or hernias. BLADDER: Not palpable. GENITALIA: Normal phallus, testes and epididymis in scrotal location without masses or tenderness RECTAL EXAM: the prostate is smooth, symetrical, without nodules or induration. Normal sphincter tone. EXTREMITIES: without cyanosis, clubbing, or edema Results/Data No CT scan images on disc currently available for my direct review Assessment 1. Bladder Cancer 188.9 2. 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 Paniagua. I explained that Dr. Guzmán has done a thorough and appropriate workup, and I made sure they understood the high quality of care that has been rendered. I also made it clear that there is no right answer in this clinical scenario. 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 There is certainly justification for performing partial cystectomy, with a right ureteral reimplantation, as is planned. I have raised several concerns. The first is that this is a field defect. Even though random biopsies have failed to demonstrate CIS, there is no guarantee that partial cystectomy with diverticulectomy would be curative. The decision making is more straightforward with papillary tumors, and more complex wtih CIS in this scenario. This argues against partial cystectomy. On the other hand, diverticulectomy would make subsequent surveillance with biopsies much easier even if he developed CIS elsewhere, since it would eliminate the fear of perforating the diverticulum, etc. However, the theoretical concern of tumor seeding was also discussed. The bladder has to be opened in order to perform the operation, and he has active disease within the bladder. There is also a clear phenomenon of delayed response to BCG. Taking all of the above under consideration, I would recommend a second course of BCG, if not even a third course. Subsequent courses can be combined with interferon, and other second line intravesical agents could also be considered. The risk of progression with such a delay is minimal. I therefore explained that he may end up requiring surgery, but I would give him the benefit of the doubt that he may still respond to intravesical immunotherapy after several more cycles. Total time with the patient, greater than 50% in counselin minutes Signatures Electronically signed by : ASIM RUIAS MD; Jul 27 2011 1:14PM documented in this encounter Miscellaneous Notes * Letter - Asim Urias MD - 06/19/2014 10:37 AM EST [id number],ANÍBAL REVISED [place], [place] Reason For Visit Bladder cancer second opinion History of Present Illness Mr. Paniagua is a 66 year old man whose primary urologist is Dr. Reno Guzmán. He presented in the fall of 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 He was given BCG induction immunotherapy for 6 weeks. One month after completing BCG he was taken back to the operating room. 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 Random biopsies throughout the remainder of the bladder as well as the prostatic urethra did not show any carcinoma in situ. Cytology 06/21/11 was negative. Cytology 01/2011 inflamed, but also negative. Multiple treatment options have been discussed including continued BCG, partial cystectomy, radical cystectomy with urinary diversion. It is of note that the carcinoma in situ is intimately related to the right ureteral orifice. Partial cystectomy with right ureteral reimplantation has been suggested. Current Meds Claritin, omeprazole, B12, simvastatin, metoprolol, Colace, aspirin, folic acid, fish oil, vitamin C, vitamin D, vitamin B Allergies OxyCODONE HCl TABS Vicodin TABS Adhesive Tape Bee Sting Vitals [facility] Vitals Data Includes: Current Encounter 27Jul2011 08:27AM Systolic 142 Diastolic 76 Heart Rate 56 BMI Calculated 27.41 BSA Calculated 2.14 Height 6 ft Weight 202 lb 6.4 oz Respiration 16 Pain Score 7 Pain Site right hip pain MD Notified Yes Allergy Status Reviewed Yes Safe at Home Yes Physical Exam PHYSICAL EXAM: GENERAL: He appears well. No distress. NEURO: Cranial nerves grossly intact. Normal gait. HEENT: sclera anicteric, oropharynx clear BACK: No CVA tenderness CHEST: Clear to auscultation bilaterally HEART: Tones are regular, without adventitious sounds ABDOMEN: Soft, nontender, nondistended without masses, or hernias. BLADDER: Not palpable. GENITALIA: Normal phallus, testes and epididymis in scrotal location without masses or tenderness RECTAL EXAM: the prostate is smooth, symetrical, without nodules or induration. Normal sphincter tone. EXTREMITIES: without cyanosis, clubbing, or edema Assessment 1. Bladder Cancer 188.9 2. 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 Paniagua. I explained that Dr. Guzmán has done a thorough and appropriate workup, and I made sure they understood the high quality of care that has been rendered. I also made it clear that there is no right answer in this clinical scenario. 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 There is certainly justification for performing partial cystectomy, with a right ureteral reimplantation, as is planned. I have raised several concerns. The first is that this is a field defect. Even though random biopsies have failed to demonstrate CIS, there is no guarantee that partial cystectomy with diverticulectomy would be curative. The decision making is more straightforward with papillary tumors, and more complex wtih CIS in this scenario. This argues against partial cystectomy. On the other hand, diverticulectomy would make subsequent surveillance with biopsies much easier even if he developed CIS elsewhere, since it would eliminate the fear of perforating the diverticulum, etc. However, the theoretical concern of tumor seeding was also discussed. The bladder has to be opened in order to perform the operation, and he has active disease within the bladder. There is also a clear phenomenon of delayed response to BCG. Taking all of the above under consideration, I would recommend a second course of BCG, if not even a third course. Subsequent courses can be combined with interferon, and other second line intravesical agents could also be considered. The risk of progression with such a delay is minimal. I therefore explained that he may end up requiring surgery, but I would give him the benefit of the doubt that he may still respond to intravesical immunotherapy after several more cycles. Total time with the patient, greater than 50% in counselin minutes Signatures Electronically signed by : ASIM URIAS MD; Jul 27 2011 1:13PM Electronically signed by : ASIM URIAS MD; Jul 27 2011 1:14PM documented in this encounter Plan of Treatment Not on file documented as of this encounter Visit Diagnoses Not on filedocumented in this encounter Care Teams Adjunct Latin Professor Relationship Specialty Start Date End Date Olayinka Shore II, MD [address] [place] [id number] PCP - General 03/15/14 10/10/15 Aguilar Taylor MD [address] [place] [address] PCP - General Internal Medicine 10/11/15 documented as of this encounter
--- OUTSIDE RECORDS SUMMARY | 2025-04-25 14:48 | XMS_ITS | Continuity of Care Document ---
Author Organization [facility] Address [address] [place] [address] Assessment No assessment recorded. Plan of Treatment Reminders Order Date Submit Date Provider Last Modified By Organization Details Last Modified Time Details Appointments None record ed. Lab None record ed. Referral None record ed. Procedures None record ed. Surgeries None record ed. Imaging None record ed. Medication Orders None record ed. Patient TargetsNo targets recorded. Patient InstructionsNo instructions recorded. Reason for Referral None Reported. Problems Name Problem SNOMED Code Status Onset Date Resolution Date Notes Provider Name and Address Organization Details Recorded Time Benign prostatic hyperplas ia 288729680 Active 2017 Jinny crews [facility] 8 08:25:22 Allergic rhinitis 72141969 Active 2017 Jinny crews [facility] 8 08:25:59 Coronary arteriosc lerosis 98909853 Active 2017 Jinny crews [facility] 8 08:26:08 History of angioplas ty 510173853 Active 2017 Jinny crews [facility] 8 08:26:14 Hypertens bettye disorder 19230132 Active 2017 Jinny crews [facility] 8 08:26:18 Hyperchol esterolem ia 45450279 Active 2017 Jinny crews [facility] 8 08:26:25 Kidney stone 63547575 Active 2017 Jinny crews [facility] 8 08:26:30 Steatotic liver disease 708846760 [facility] 08:[facility]38 Alcoholis m 1316796 Active 2017 quit 12 years ago KODY FRENCH [address] [place], [address], [facility] 0 12:08:56 Trammell's esophagus 040620280 Active 2017 Jinny crews [facility] 8 08:26:56 Gastroeso phageal reflux disease 980525910 [facility] 08:27:04 Arthritis 6957866 Active 2017 Jinny crews [facility] 8 08:27:11 Cobalamin deficienc y 482072328 Active 2017 Jinny crews [facility] 8 08:27:18 Vertigo 790267167 [facility] 08:27:24 Migraine 42507732 Active 2017 [facility] 08:27:30 Chronic kidney disease 913942376 Active 2017 [facility] 08:27:46 History of tobacco use 963361929416 3 Active 2017 quit at age 28 Jinny crews [facility] 8 08:28:[address] segment elevation myocardia l infarctio n 129644082 Active 2018 S/P BRYANT Samreen David [facility] [address] [place], [address], [facility] 9 15:51:48 Malignant neoplasm of urinary bladder 595282716 Active 2018 [facility] [address] [place], [address], [facility] 9 15:54:22 Costal chondriti s 42382900 Active 2018 Aguilar Taylor, DO [address] [place] [address], [address], [facility] 9 12:37:35 Ataxia 17658730 Active 2021 Aguilar Taylor, DO [address] [place] [address], [address], [facility] 2 15:44:40 Excessive sweating 82272122 Active 2021 Aguilar Taylor, DO [address] [place] [address], [address], [facility] 2 15:44:57 Dizziness 053597520 Active 2021 KODY FRENCH [address] [place] [address], [address], [facility] 5 16:32:29 Muscle weakness of limb 719803212 Active 2021 Aguilar Taylor, DO [address] [place] [address], [address], [facility] 2 15:46:07 Tremor 24679988 Active 2021 Aguilar Taylor, DO [address] [place] [address], [address], [facility] 2 15:45:59 Reduced visual acuity 98967181 Active 2021 Aguilar Taylor, DO [address] [place] [address], [address], [facility] 2 15:47:13 Hypoglyce alejandro 682110843 Active 2022 Aguilar Taylor, DO [address] [place] [address], [address], [facility] 5 14:24:54 Insulin resistanc e 588215725 Active 2023 Aguilar Taylor DO [address] [place] [address], [address], [facility] 4 16:16:25 Edema of lower extremity 706457013 Active 2023 KODY FRENCH [address] [place], [address], [facility] 4 13:54:09 Nausea and vomiting 28608056 Active 2024 KODY FRENCH [address] [place], [address], [facility] 5 10:48:42 Urinary frequency due to benign prostatic hypertrop hy 228407260764 102 Active 2024 KODY FRENCH [address] [place] [address], [address], [facility] 5 16:28:43 Hypoadren alism 507281304 Active 2024 KODY FRENCH [address] [place], [address], [facility] 5 16:40:39 Spinal stenosis in cervical region 43007840 Active 2024 KODY FRENCH [address] [place] [address], [address], [facility] 5 16:41:56 Hypercort isolism 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 Medical Equipment None Reported. Allergies Allergen ID Allergen Name Allergen Category Reaction Reaction Severity Criticality Documentation Date Start Date Code Code System Note Provider Name and Address Organization Details Recorded Time 2079 honey bee venom medicatio n Not available Not available Not available 12/11/2017 35391 7 RxNorm Jinny crews [facility] 8 08:21:14 2080 Dilaudid medicatio n Not available Not available Not available 12/11/2017 77334 3 RxNorm Jinny crews [facility] 8 08:25:05 208 acetamino phen / oxycodone medicatio n Not available Not available Not available 12/11/2017 76304 3 [facility] 8 08:25:10 2082 oxycodone medicatio n Not available Not available Not available 12/11/2017 7804 Rx[facility] [place] [facility] 8 08:25:16 9506 acetamino phen / hydrocodo ne medicatio n Not available Not available Not available 03/19/20252011 28621 2 RxNorm unrec ogniz ed react ion (text : Other (See Comme nts), code: OT) (from [facility]) Not Available [place] - External Data Service - prod 5 [...] Not Available Not Available Not Available Vitals None Recorded Social History Question Answer Notes LastModified by Organizat ion Details LastModified Time Tobacco Smoking Status Former Smoker Not Available [facility] 03/08/2020 03:36:24 What Was The Date Of [...] ICD10 Code Diagnosis IMO Codes Diagnosis Note [id number] Aguilar Taylor DO [facility] [address] [facility],[place] [address] 02/26/2025 13:42:26 03/01/2025 09:02:15 Depression screening 644738059 Z13.31 Hypoglycemia 340692624 E 16.2 72142 given freestye kartik to monitor sugar and see what happens with these episodes [id number] Aguilar Taylor DO [facility] [address] [facility],Cardoso [place] [address] 03/03/2025 15:39:55 03/05/2025 09:15:04 Hypoglycemia 944484528 E16.2 11769 fu Health Concerns Section Related Observation LastModified by Organization Detai ls LastModified Time None Recorded Concern Status LastModified by Organization Details LastModified Time None Recorded Payers Encounter Date Sequence Insurance Name Policy Number Policy Levine Covered Member ID Levine Member ID Guarantor Name 03/03/2025 1 [employer] [facility] (EPO) [id number] Sangita Paniagua [id number] Toro Paniagua 03/03/2025 2 [facility]: MEDICAR E PPO BLUE (MEDICARE REPLACEMENT PPO) [id number] Toro Paniagua [id number] Toro Paniagua Notes Date Note Type Note Provider Name a dc Address Organization Details Recorded Time 03/03/2025 text/html ROS as noted in the HPI visit for Freestyle kartik 3+ instructions the sensor is ineffective/dud, coming back on saturday to have a new on placed and set up reader, smart phone is harder for patient to us will fu with pt and saturday KODY FRENCH [address] [facility], [place], [address], [facility] 03/03/2025 16:33:22
--- OUTSIDE RECORDS SUMMARY | 2025-04-25 14:48 | XMS_ITS | Data Portability ---
Author Organization [facility], Telehealth Patient Home Address [address] [place] [address] Assessment No assessment recorded. Plan of Treatment Reminders Order Date Submit Date Provider Last Modified By Organization Details Last Modified Time Details Appointments None recorded. Lab acth, plasma 2024 [facility], [address] [place] [address], [address], 16:48:20 cortisol, am, serum 2024 [facility], [address] [place] [address], [address], 16:48:20 Referral None recorded. Procedures None recorded. Surgeries None recorded. Imaging MRI, cervical spine, w/o contrast 2024 025 [email or web address] [facility] ([facility]), [address] [place] [address], [address], 5 08:53:14 US, duplex, carotid artery 2024 025 [email or web address] [facility] ([facility]), [address] [place] [address], [address], 5 13:58:33 US, pancreas 2024 025 [email or web address] [facility] ([facility]), [address] [place] [address], [address], 10:40:08 Medication Orders EpiPen 2-Elvis 0.3 mg/0.3 mL injection, auto-injec tor 2024 025 [facility] [place], [place], [address] [place], [address], 10:44:19 tamsulosin 0.4 mg capsule 2024 025 [facility] [place], [place], [address] [place], [address], 10:44:19 Patient TargetsNo targets recorded. Patient Instructions Encounter Date Encounter Id Patient Instructions Last Modified By Organization Details Last Modified Time 02/26/2025 [id number] hypoglycemia: care instructions Not available 02/26/2025 14:25:38 Reason for Referral None Reported. Results Created Date Observation Date Name Description Value Unit Range Abnormal Flag Note LastModifiedBy Organization Detail LastModifiedTime 08/16/19 24 08/06/2023 CT, cervi yasmin spine , w/o contr ast No observ ation record ed. [email or web address] [facility] (Medical Records) [address] [place] [address], [address], 08/17/2023 10:31:14 12/03/19 25 12/02/2024 CT, abdom en + pelvi s, w/wo contr ast No observ ation record ed. [email or web address] [facility] (Medical Records) [address] [place], [address], 12/02/2024 09:53:43 12/03/19 25 12/02/2024 CT, abdom en + pelvi s, w/wo contr ast No observ ation record ed. [facility] (Medical Records) [address] [place] [address], [address], 12/04/2024 21:17:38 Result Notes None recorded. Problems Name Problem SNOMED Code Status Onset Date Resolution Date Notes Provider Name and Address Organization Details Recorded Time Benign prostatic hyperplas ia 007499000 Active 2017 Jinny crews [facility] 8 08:25:22 Allergic rhinitis 93150931 Active 2017 [facility]inny crews [facility] 8 08:25:59 Coronary arteriosc lerosis 51426299 Active 2017 Jinny crews [facility] 8 08:26:08 History of angioplas ty 080390125 Active 2017 [facility]inny crews [facility] 8 08:26:14 Hypertens bettye disorder 37871651 Active 2017 Jinny crews [facility] 8 08:26:18 Hyperchol esterolem ia 45645586 Active 2017 [facility]inny [facility] 8 08:26:25 Kidney stone 95328603 Active 2017 [facility]inny crews [facility] 8 08:26:30 Steatotic liver disease 700752614 [facility] 08:26:38 Alcoholis m 9479809 Active 2017 quit 12 years ago KODY FRENCH [address] [place] [address], [address], [facility] 0 12:08:56 Trammell's esophagus 319540812 Active 2017 [facility]inny [facility] 8 08:26:56 Gastroeso phageal reflux disease 951264810 Active 2017 Jinny crews [facility] 8 08:27:04 Arthritis 9257292 Active 2017 [facility]inny [facility] 8 08:27:11 Cobalamin deficienc y 099002064 Active 2017 [facility]inny crews [facility] 8 08:27:18 Vertigo 309951490 Active 2017 Jinny crews [facility] Internal [facility] 8 08:27:24 Migraine 98542166 Active 2017 [facility]inny crews [facility] 8 08:27:30 Chronic kidney disease 185439498 Active 2017 Jinny crews [facility] 8 08:27:46 History of tobacco use 878972303540 3 Active 2017 quit at age 28 [facility]inny [facility] 8 08:28:[address] segment elevation myocardia l infarctio n 616819781 Active 2018 S/P BRYANT [address], [address], [facility] 9 15:51:48 Malignant neoplasm of urinary bladder 255670902 Active 2018 [facility] [address] [place], [address], [facility] 9 15:54:22 Costal chondriti s 67707816 Active 2018 Aguilar Amaro DO [address] [place] [address], [address], [facility] Internal [facility] 9 12:37:35 Ataxia 10621556 Active 2021 Aguilar Amaro DO [address] [place] [address], [address], [facility] 2 15:44:40 Excessive sweating 86078984 Active 2021 Aguilar Amaro DO [address] [place] [address], [address], [facility] 2 15:44:57 Dizziness 370357559 Active 2021 KODY FRENCH [address] [place] [address], [address], [facility] 5 16:32:29 Muscle weakness of limb 529621212 Active 2021 Aguilar Amaro DO [address] [place] [address], [address], [facility] 2 15:46:07 Tremor 27298553 Active 2021 Aguilar Amaro DO [address] [place] [address], [address], [facility] 2 15:45:59 Reduced visual acuity 06052946 Active 2021 Aguilar Amaro, DO [address] [place] [address], [address], [facility] 2 15:47:13 Hypoglyce alejandro 983921537 Active 2022 Aguilar Amaro [address], [address], [facility] 5 14:24:54 Insulin resistanc e 559202498 Active 2023 Aguilar Amaro DO [address] [place] [address], [address], [facility] 4 16:16:25 Edema of lower extremity 891535533 Active 2023 KODY FRENCH [address] [place] [address], [address], [facility] 4 13:54:09 Nausea and vomiting 96954694 Active 2024 KODY FRENCH [address] [place] [address], [address], [facility] 5 10:48:42 Urinary frequency due to benign prostatic hypertrop hy 649954123723 102 Active 2024 KODY FRENCH [address] [place] [address], [address], [facility] 5 16:28:43 Hypoadren alism 488874147 Active 2024 KODY FRENCH [address] [place] [address], [address], [facility] 5 16:40:39 Spinal stenosis in cervical region 60301750 Active 2024 KODY FRENCH [address] [place], [address], [facility] 5 16:41:56 Hypercort isolism 59667641 Active 2024 KODY FRENCH [address] [place], [address], [facility] 5 16:45:48 Problem Notes None recorded. Medical Equipment None Reported. Allergies Allergen ID Allergen Name Allergen Category Reaction Reaction Severity Criticality Documentation Date Start Date Code Code System Note Provider Name and Address Organization Details Recorded Time 2079 honey bee venom medicatio n Not available Not available Not available 12/11/2017 28502 7 RxNorm Jinny Quintanilla [facility] 8 08:21:14 2080 Dilaudid medicatio n Not available Not available Not available 12/11/2017 65193 3 [facility] 08:25:05 208 acetamino phen / oxycodone medicatio n Not available Not available Not available 12/11/2017 46317 3 RxNorm Jinny Quintanilla [facility] 8 08:25:10 2082 oxycodone medicatio n Not available Not available Not available 12/11/2017 7804 RxNorm Jniny Quintanilla [facility] 8 08:25:16 9506 acetamino phen / hydrocodo ne medicatio n Not available Not available Not available 03/19/20252011 97682 2 RxNorm unrec ogniz ed react ion (text : Other (See Comme nts), code: OTH) (from [facility]) Not Available michelle - External Data Service [...] Updated DateTime 5 175.26 cm 23.7 kg/m2 20026.9 3 g 60 /min 99 % 116/78 mm[Hg] Lauren Borges [facility] 14:03:51 Date Recorded Body height Body mass index (BMI) Body weight Oxygen saturation Heart rate Systolic And Diastolic Provider Name and Address Organization Details Last Updated DateTime 5 175.26 cm 24.1 kg/m2 70800.5 6 g 100 % 58 /min 128/66 mm[Hg] ALEXANDRA MAIN [facility] 16:14:29 Social History Question Answer Notes LastModified by Organizat ion Details LastModified Time Tobacco Smoking Status Former [facility]oker Not Available [facility] 03/08/2020 03:36:24 What Was The [...] Codes Diagnosis Note [id number] Aguilar Amaro DO [facility] [address] [facility],[place] [address] 12/11/2017 09:58:16 12/11/2017 12:04:13 Cerebellar disorder 671494312 G93.9 will plan on referring to a [facility] specialist in cerebellar diseases Fatigue 55440260 R53.83 will also get lab work [id number] Aguilar Amaro [facility] [address] [facility], [place] [address] 12/20/2017 12:10:46 12/20/2017 13:13:26 Vitamin B12 deficiency (non anemic) 93610849 E53.8 start inj Dysphagia 66536181 R13.1 0 [id number] Aguilar Amaro [facility] [address] [facility],[place] [address] 01/31/2018 10:42:48 01/31/2018 13:33:34 Cobalamin deficiency 233290750 E53.8 was 174 has been doing the b12 he looks better overall will recc he start doing muscle strengthen ing and join a gym Hypertensive disorder 38 629950 I10 doing well overall has improved Vitamin B1 2 deficiency (non anemic) 07930454 E53.8 start inj [id number] Aguilar Amaro [facility] [address] [facility],[place] [address] 05/20/2018 10:04:13 05/20/2018 10:46:11 Right side sciatica 8383863250 67162 M54.31 History of tobacco use 6565087470 103 Z87.891 Arthritis 4119868 M19.90 s/p THR about 10 years ago Chronic ki dney disease 551682141 N18.9 CT of kidneys non acute Kidney stone 72504749 N2 0.0 no apparent recently passed stone or kidney swelling [id number] Aguilar Amaro [facility] [address] [facility],[place] [address] 11/14/2018 15:06:41 11/14/2018 16:09:15 Acute non-ST segment elevation myocardial infarction 650227750 I21.4 already had cardio f/u yesterday will be having cardiac rehab will be seeing genny hernandez at that time as well BP well controlled Hypercholesterolemia 136 70382 E78.00 on max of lipitor Hypertensive disorder 38 380905 I10 very well controlled [id number] Aguilar Amaro [facility] [address] [facility],[place] [address] 12/16/2018 13:27:27 12/16/2018 14:17:56 Lightheadedness 186501315 R42 as this has been worked up significan tly over the span of [address] amaro, I will defer further work up to dr. amaro as I do not want to repeat testing that have already been done Major depr essive disorder 364442956 F32.9 he denies SI he declines pursuing treatment for depression , as he feels the sources of this is just his vertigo/di zziness/li ghtheadedn ess that limits him from doing the activities he enjoys Vertigo 241856596 R42 [id number] Aguilar Amaro [facility] [address] [facility],[place] [address] 02/27/2019 12:01:42 02/27/2019 13:44:21 Vertigo 473667417 R42 given his persistant and worsening vertiginou s symptoms we will ask a neurologis t to eval Hypertensive disorder 38 272673 I10 doing well overall has improved Costal chondritis 949374 04 M94.0 told to cont with conserv tx and this should cont to fade away Acute ST s egment elevation myocardial infarction 678673757 I21.3 has been asymptomat ic and is doing well [id number] Aguilar Amaro [facility] [address] [facility],[place] [address] 09/09/2019 10:33:43 09/09/2019 11:37:25 Degenerative cervical spinal stenosis 795907491 M48.02 with ataxia and diplopia will need to have his neck eval told to stop cannabis will needs to have rechik after mri Hypertensive disorder 38 275870 I10 doing well overall has improved Cobalamin deficiency 190 037064 E53.8 was 174 has been doing the b12 he looks better overall will need lab [id number] Aguilar Amaro [facility] [address] [facility],[place] [address] 10/27/2019 10:49:39 10/27/2019 12:15:48 Degeneration of cervical intervertebral disc 30660622 M50.[address] Tolentino next week will have him wait on any therapy until seen [id number] Aguilar Amaro [facility] [address] [facility],[place] [address] 02/01/2020 11:38:29 02/01/2020 12:35:59 Pre-surgery evaluation 651532622 Z01.818 Given the patient's history and examinatio n the patient is cleared for surgery [id number] Aguilar Amaro DO [facility] [address] [facility],[place] [address] 05/30/2021 08:19:19 05/30/2021 15:40:14 Chronic kidney disease 655008811 N18.9 Coronary arteriosclerosis 45972799 I25.10 Hypertensive disorder 38 669918 I10 doing well overall has improved Arthritis 7202788 M19.[address] s egment elevation myocardial infarction 380386687 I21.3 has been asymptomat ic and is doing well Nummular eczema 68179503 L30.0 [id number] Aguilar Amaro [facility] [address] [facility],[place] [address] 08/25/2021 14:51:05 08/25/2021 16:03:16 Ataxia 62586500 R27.0 we will have him get seen by a specialist as this has got to be a more diff diagnosis than we can find Excessive sweating 77324 005 R61 we are going to have them check his temp during this episodes Dizziness 949023534 R42 ongoing from the beginning Muscle wea kness of limb 062743276 M62.81 [place] [id number] Aguilar Amaro [facility] [address] [facility],[place] [address] 01/26/2022 15:18:10 01/26/2022 15:56:55 Excessive sweating 21965055 R61 we are going to have them check his temp during this episodes Tremor 55988691 R25.1 as part of his episodes Reduced visual acuity 13 610990 H54.7 will need a referral to ophtho as he is clearly having problems here [id number] Aguilar Amaro [facility] [address] [facility], [place] [address] 04/26/2023 08:13:07 04/26/2023 11:38:[address] segment elevation myocardial infarction 254742864 I21.3 has been asymptomat ic and is doing well Hypercholesterolemia 136 93420 E78.00 will be Hypertensive disorder 38 185032 I10 doing well overall has improved Chronic ki dney disease 814461437 N18.9 Hypoglycemia 055136626 E 16.2 Cobalamin deficiency 190 249652 E53.8 was 174 has been doing the b12 he looks better overall will need lab [id number] Aguilar Amaro [facility] [address] [facility], [place] [address] 07/30/2023 13:27:06 07/30/2023 15:32:02 Edema of lower extremity 449182702 R60.0 will fu in two weeksdrop down to one tab of the amlodipine Hypoglycemia 675538439 E 16.2 switched referral [facility] [id number] Aguilar Amaro [facility] [address] [facility], [place] [address] 08/21/2023 08:41:26 08/21/2023 16:01:02 Edema of lower extremity 446629809 R60.0 fu next week [id number] Aguilar Amaro [facility] [address] [facility] [address] 02/26/2025 13:42:26 03/01/2025 09:02:15 Depression screening 241579153 Z13.31 Hypoglycemia 236362087 E 16.2 86933 given freestye kartik to monitor sugar and see what happens with these episodes [id number] Aguilar Amaro [facility] [address] [facility],[place] [address] 03/03/2025 15:39:55 03/05/2025 09:15:04 Hypoglycemia 119257268 E16.2 00088 fu firday [id number] Aguilar Amaro [facility] [address] [facility],[place] [address] 03/05/2025 15:54:33 03/08/2025 17:23:19 Hypoglycemia 580065688 E16.2 35961 fu firday Insulin resistance 73696 5000 E88.819 fu firday [id number] Aguilar Amaro [facility] [address] [facility],[address] [address] 03/19/2025 15:59:05 03/19/2025 17:02:28 Depression screening 557452984 Z13.31 Allergic r eaction to bee sting 915593683 T63.441A Urinary fr equency due to benign prostatic hypertrophy 3515296478 59415 N40.1 R35.0 96672779 Hypoglycemia 968627263 E 16.2 97708 Dizziness 117434542 R42 10559 Spinal geetha nosis in cervical region 35337117 M48.02 11997 Health Concerns Section Related Observation LastModified by Organization Detai ls LastModified Time None Recorded Concern Status LastModified by Organization Details LastModified Time None Recorded Advance Directives Directive None Recorded Payers Insurance Date Sequence Insurance Name Policy Number Policy Levine Covered Member ID Levine Member ID Guarantor Name 04/20/2025 1 BLUE [employer]EFIT [employer] OF [facility] (EPO) [id number] Sangita Paniagua [id number] Toro Paniagua 04/20/2025 2 [facility]: MEDICARE PPO BLUE (MEDICARE REPLACEMENT PPO) [id number] Toro Paniagua [id number] Tor[place] Paniagua 09/09/2019 1 UMR [id number] Sangita Paniagua [id number] Toro Paniagua 02/26/2025 1 [place]IC[place]: [employer] Toro Paniagua [id number] Toro Paniagua Notes Date Note Type Note Provider Name a nd Address Organization Details Recorded Time 08/21/2023 text/html ROS as noted in the HPI 2 [...] exam of his legs KODY FRENCH [address] [place], [address], [facility] 08/21/2023 14:46:33 02/26/2025 text/html ROS as noted in the HPI hewre for rechk and is doing th e same he has been seen and eval by the endocrine Aguilar Amaro DO [address] [place], [address], [facility] 02/26/2025 14:26:10 03/03/2025 text/html ROS as noted in the HPI visit for Freestyle kartik 3+ instructions the sensor is ineffective/dud, coming back on saturday to have a new on placed and set up reader, smart phone is harder for patient to us will fu with pt and saturday KODY FRENCH [address] [place], [address], [facility] 03/03/2025 16:33:22 03/05/2025 text/html ROS as noted in the HPI fu freestyle kartik 3 patient was started on the kartik 3, now with reader instead of phone apppatient was taught how to use the sensor, how often and how to change it after the 15 days all questions answered for and patientwill fu again to review results of the kartik over the next 14-30 days set up complete KODY FRENCH [address] [place], [address], [facility] 03/10/2025 12:36:18 03/19/2025 text/html ROS as noted in the HPI f/u hypoglycemia the patient reports that he did wellthe patient glucose fluctuates through the day, no correlationthe patient didn't have a sig dizzy episodes for the reason why he was started on the glucometer recommended repeat MRI of his neck> also have him tested for any possible adrenal issues that could account for the glucose issue and increased insulin issue he is experiencing has been dealing the dizziness for years, without any diagnosis as to why he is having it ?seizure d/o, did have EEG a few years back > may return to that vs an atypical migraine possibly due to previous neck surgery, has sig deformity with scar tissue and loss of tissue no recent carotid scan to check perfusion will continue on the monitor in the meantime needs refills of KODY FRENCH [address] [place] [address], [place], [address], [facility] 03/19/2025 16:59:03
--- OUTSIDE RECORDS SUMMARY | 2025-04-25 14:48 | XMS_ITS | Continuity of Care Document ---
Author Organization [facility], [facility] Address [address] [place] [address] Assessment No assessment recorded. Plan of Treatment Reminders Order Date Submit Date Provider Last Modified By Organization Details Last Modified Time Details Appointments None recorded. Lab acth, plasma 2024 [facility], [address] [place] [address], [address], 16:48:20 cortisol, am, serum 2024 [facility], [address] [place] [address], [address], 16:48:20 Referral None recorded. Procedures None recorded. Surgeries None recorded. Imaging MRI, cervical spine, w/o contrast 2024 025 [email or web address] [facility] [address] [place] [address], [address], 5 08:53:14 US, duplex, carotid artery 2024 025 [email or web address] 10 [facility] [address] [place] [address], [address], 5 13:58:33 US, pancreas 2024 025 [email or web address] 10 [facility] [address] [place] [address], [address], 5 10:40:08 Medication Orders EpiPen 2-Elvis 0.3 mg/0.3 mL injection, auto-injec tor 2024 025 [facility] [place], [address] [place], [address], 5 10:44:19 tamsulosin 0.4 mg capsule 2024 025 [facility] [place], [address] [place], [address], 5 10:44:19 Patient TargetsNo targets recorded. Patient InstructionsNo instructions recorded. Reason for Referral None Reported. Problems Name Problem SNOMED Code Status Onset Date Resolution Date Notes Provider Name and Address Organization Details Recorded Time Benign prostatic hyperplas ia 306057133 Active 2017 Jinny crews [facility] 8 08:25:22 Allergic rhinitis 06930229 Active 2017 Jinny crews [facility] 8 08:25:59 Coronary arteriosc lerosis 76940861 Active 2017 Jinny crews [facility] 8 08:26:08 History of angioplas ty 268139819 Active 2017 Jinny crews [facility] 8 08:26:14 Hypertens bettye disorder 67001197 Active 2017 Jinny crews [facility] 8 08:26:18 Hyperchol esterolem ia 19149005 Active 2017 Jinny crews [facility] 8 08:26:25 Kidney stone 92740433 Active 2017 Jinny crews [facility] 8 08:26:30 Steatotic liver disease 041209130 Active 2017 Jinny crews [facility] 8 08:26:38 Alcoholis phong 6235679 Active 2017 quit 12 years KODY Jimenez [address] [place], [address], [facility] 0 12:08:56 Trammell's esophagus 412434887 [facility] 08:[facility] Gastroeso phageal reflux disease 291816630 [facility] 8 08:27:04 Arthritis 4685032 [facility] 8 08:27:11 Cobalamin deficienc y 611950730 Active 2017 [facility] 8 08:27:18 Vertigo 477799873 Active [facility] 8 08:27:24 Migraine 59812493 Active [facility] 8 08:27:30 Chronic kidney disease 445186411 [facility] 8 08:27:46 History of tobacco use 761032368542 3 Active 2017 quit at age 28 Jinny Quintanilla [facility] 8 08:28:[address] segment elevation myocardia l infarctio n 866767472 Active 2018 S/P BRYANT ASTRID Gallo [address] [place] [address], [address], [facility] 9 15:51:48 Malignant neoplasm of urinary bladder 665228573 Active 2018 ASTRID Gallo [address] [place] [address], [address], [facility] 9 15:54:22 Costal chondriti s 00829186 Active 2018 Aguilar Taylor DO [address] [place], [address], [facility] 9 12:37:35 Ataxia 21054840 Active 2021 Aguilar Taylor, DO [address] [place] [address], [address], [facility] 2 15:44:40 Excessive sweating 17781533 Active 2021 Aguilar Taylor, DO [address] [place] [address], [address], [facility] 2 15:44:57 Dizziness 459074332 Active 2021 KODY FRENCH [address] [place] [address], [address], [facility] 5 16:32:29 Muscle weakness of limb 768502199 Active 2021 Aguilar Taylor DO [address] [place] [address], [address], [facility] 2 15:46:07 Tremor 67428502 Active 2021 Aguilar Taylor, DO [address] [place] [address], [address], [facility] 2 15:45:59 Reduced visual acuity 26061757 Active 2021 Aguilar Taylor, DO [address] [place] [address], [address], [facility] 2 15:47:13 Hypoglyce alejandro 291201502 Active 2022 Aguilar Taylor, DO [address] [place] [address], [address], [facility] 5 14:24:54 Insulin resistanc e 918641289 Active 2023 Aguilar Taylor DO [address] [place] [address], [address], [facility] 4 16:16:25 Edema of lower extremity 510064307 Active 2023 KODY FRENCH [address] [place] [address], [address], [facility] 4 13:54:09 Nausea and vomiting 58527899 Active 2024 KODY FRENCH [address] [place], [address], [facility] 5 10:48:42 Urinary frequency due to benign prostatic hypertrop 423803805228 102 Active 2024 KODY FRENCH [address] [place] [address], , [facility] 5 16:28:43 Hypoadren alism 377578748 Active 2024 KODY FRENCH [address] [place] [address], , [facility] 5 16:40:39 Spinal stenosis in cervical region 91532208 Active 2024 KODY FRENCH [address] [place] [address], , [facility] 5 16:41:56 Hypercort isolism 00349517 Active 2024 KODY FRENCH [address] [place] [address], , [facility] 5 16:45:48 Problem Notes None recorded. Medical Equipment None Reported. Allergies Allergen ID Allergen Name Allergen Category Reaction Reaction Severity Criticality Documentation Date Start Date Code Code System Note Provider Name and Address Organization Details Recorded Time 2079 honey bee venom medicatio n Not available Not available Not available 12/11/2017 99867 7 RxNorm Jinny crews [facility] 8 08:21:14 2080 Dilaudid medicatio n Not available Not available Not available 12/11/2017 60567 3 RxNorm Jinny crews [facility] 8 08:25:05 208 acetamino phen / oxycodone medicatio n Not available Not available Not available 12/11/2017 81644 3 RxNorm Jinny crews [facility] 8 08:25:10 2083 oxycodone medicatio n Not available Not available Not available 12/11/2017 7804 RxNorm JERONIMO Banda [facility] 8 08:25:16 9506 acetamino phen / hydrocodo ne medicatio n Not available Not available Not available 03/19/20252011 30804 2 RxNorm unrec ogniz ed react ion (text : Other (See Comme nts), code: OTH) (from [facility]) Not Available [place] - External Data Service - prod 5 [...] Updated DateTime 5 175.26 cm 24.1 kg/m2 62955.5 6 g 100 % 58 /min 128/66 mm[Hg] ALEXANDRA [facility] 5 16:14:29 Social History Question Answer Notes LastModified [...] ICD10 Code Diagnosis IMO Codes Diagnosis Note [id number] Aguilar Goveafreya [facility] [address] [place] [address], [place] [address] 02/26/2025 13:42:26 03/01/2025 09:02:15 Depression screening 463775020 Z13.31 Hypoglycemia 188565113 E 16.2 46066 given freestye kartik to monitor sugar and see what happens with these episodes [id number] Aguilar Goveafreya [facility] [address] [place] [address], [place] [address] 03/03/2025 15:39:55 03/05/2025 09:15:04 Hypoglycemia 581655813 E16.2 92101 fu firday [id number] Aguilar Goveafreya [facility] [address], [place] [address] 03/05/2025 15:54:33 03/08/2025 17:23:19 Hypoglycemia 512054989 E16.2 84666 fu firday Insulin resistance 37021 5000 E88.819 fu firday [id number] Aguilar Goveafreya [facility] [address], [place] [address] 03/19/2025 15:59:05 03/19/2025 17:02:28 Depression screening 811437296 Z13.31 Allergic r eaction to bee sting 387052377 T63.441A Urinary fr equency due to benign prostatic hypertrophy 0874948438 42012 N40.1 R35.0 52403583 Hypoglycemia 345785097 E 16.2 01550 Dizziness 071987059 R42 29702 Spinal geetha nosis in cervical region 21238825 M48.02 33116 Health Concerns Section Related Observation LastModified by Organization Detai ls LastModified Time None Recorded Concern Status LastModified by Organization Details LastModified Time None Recorded Payers Encounter Date Sequence Insurance Name Policy Number Policy Levine Covered Member ID Levine Member ID Guarantor Name 03/19/2025 1 [employer] ([place]) [id number] Sangita Paniagua [id number] Toro Paniagua 03/19/2025 2 [facility] PPO BLUE (MEDICARE REPLACEMENT PPO) [id number] Toro Paniagua [id number] [place] Notes Date Note Type Note Provider Name a nd Address Organization Details Recorded Time 03/19/2025 text/html ROS as noted in the [...] the meantime needs refills of KODY FRENCH [address] [place] [address], [place], [address], JERON[facility] 03/19/2025 16:59:03
--- OUTSIDE RECORDS SUMMARY | 2025-04-25 14:48 | XMS_ITS | Continuity of Care Document ---
Author Organization [facility] Address [address] [address] [place] [address] Assessment No assessment recorded. Plan of Treatment [...] Details Recorded Time Benign prostatic hyperplas ia 497404599 Active 2017 Jinny crews [facility] 8 08:25:22 Allergic rhinitis 31519525 Active 2017 Jinny crews [facility] 8 08:25:59 Coronary arteriosc lerosis 02976084 Active 2017 Jinny crews [facility] 8 08:26:08 History of angioplas ty 061793129 Active 2017 Jinny crews [facility] 8 08:26:14 Hypertens bettye disorder 56901458 Active 2017 Jinny crews [facility] 8 08:26:18 Hyperchol esterolem ia 29267380 Active 2017 Jinny crews [facility] 8 08:26:25 Kidney stone 68253669 Active 2017 Jinny crews [facility] 8 08:26:30 Steatotic liver disease 869627557 [facility] 8 08:26:38 Alcoholis m 2850014 Active 2017 quit 12 years ago KODY FRENCH [address] [place], [address], [facility] 0 12:08:56 Trammell's esophagus 280622661 Active 2017 Jinny crews [facility] 8 08:26:56 Gastroeso phageal reflux disease 879485784 Active [facility] 8 08:27:04 Arthritis 2613517 Active 2017 Jinny crews [facility] 8 08:27:11 Cobalamin deficienc y 007088902 Active 2017 Jinny crews [facility] 8 08:27:18 Vertigo 979577918 Active [facility] 8 08:27:24 Migraine 92310613 Active 2017 [facility] 8 08:27:30 Chronic kidney disease 584358199 Active 2017 [facility] 8 08:27:46 History of tobacco use 412234993129 3 Active 2017 quit at age 28 Jinny crews [facility] 8 08:28:[address] segment elevation myocardia l infarctio n 557093010 Active 2018 S/P BRYANT Samreen David [facility] [address] [place], [address], [facility] Internal [facility] 9 15:51:48 Malignant neoplasm of urinary bladder 768997451 Active 2018 David [facility] [address] [place], [address], [facility] 9 15:54:22 Costal chondriti s 45285401 Active 2018 Aguilar Taylor, DO [address] [place] [address], [address], [facility] 9 12:37:35 Ataxia 81306375 Active 2021 Aguilar Taylor, DO [address] [place] [address], [address], [facility] 2 15:44:40 Excessive sweating 65709897 Active 2021 Aguilar Taylor, DO [address] [place] [address], [address], [facility] 2 15:44:57 Dizziness 778903475 Active 2021 KODY FRENCH [address] [place] [address], [address], [facility] 5 16:32:29 Muscle weakness of limb 268630127 Active 2021 Aguilar Taylor, DO [address] [place] [address], [address], [facility] 2 15:46:07 Tremor 80934839 Active 2021 Aguilar Taylor, DO [address] [place] [address], [address], [facility] 2 15:45:59 Reduced visual acuity 39583845 Active 2021 Aguilar Taylor, DO [address] [place] [address], [address], [facility] 2 15:47:13 Hypoglyce alejandro 417531709 Active 2022 Aguilar Taylor, DO [address] [place] [address], [address], [facility] 5 14:24:54 Insulin resistanc e 363546508 Active 2023 Aguilar Taylor DO [address] [place] [address], [address], [facility] 4 16:16:25 Edema of lower extremity 181560195 Active 2023 KODY FRENCH [address] [place], [address], [facility] 4 13:54:09 Nausea and vomiting 31758461 Active 2024 KODY FRENCH [address] [place], [address], [facility] 5 10:48:42 Urinary frequency due to benign prostatic hypertrop hy 161208054264 102 Active 2024 KODY FRENCH [address] [place] [address], [address], [facility] 5 16:28:43 Hypoadren alism 891370907 Active 2024 KODY FRENCH [address] [place], [address], [facility] 5 16:40:39 Spinal stenosis in cervical region 01344131 Active 2024 KODY FRENCH [address] [place] [address], [address], [facility] 5 16:41:56 Hypercort isolism 33885592 Active 2024 KODY FRENCH [address] [place] [address], [address], [facility] 5 16:45:48 Problem Notes None recorded. Medical Equipment None Reported. Allergies Allergen ID Allergen Name Allergen Category Reaction Reaction Severity Criticality Documentation Date Start Date Code Code System Note Provider Name and Address Organization Details Recorded Time 2079 honey bee venom medicatio n Not available Not available Not available 12/11/2017 29066 7 RxNorm Jinny crews [facility] 8 08:21:14 2080 Dilaudid medicatio n Not available Not available Not available 12/11/2017 80188 3 RxNorm Jinny crews [facility] 8 08:25:05 208 acetamino phen / oxycodone medicatio n Not available Not available Not available 12/11/2017 10659 3 RxNorm [facility] crews [facility] 8 08:25:10 2082 oxycodone medicatio n Not available Not available Not available 12/11/2017 7804 RxNorm Jinny crews [place] [facility] 8 08:25:16 9506 acetamino phen / hydrocodo ne medicatio n Not available Not available Not available 03/19/20252011 16296 2 RxNorm unrec ogniz ed react ion (text : Other (See Comme nts), code: OT) (from [facility]) Not Available [place] - External Data Service - prod 5 [...] Tobacco Smoking Status Former Smoker Not Available [facility] 03/08/2020 03:36:24 What Was The Date [...] ICD10 Code Diagnosis IMO Codes Diagnosis Note [id number] Aguilar Taylor [facility] [address] [facility] [address] [address] 02/26/2025 13:42:26 03/01/2025 09:02:15 Depression screening 085025976 Z13.31 Hypoglycemia 563609399 E 16.2 63997 given freestye kartik to monitor sugar and see what happens with these episodes [id number] Aguilar Taylor [facility] [address] [facility] [address] [address] 03/03/2025 15:39:55 03/05/2025 09:15:04 Hypoglycemia 146764879 E16.2 30917 fu firday [id number] Aguilar Taylor [facility] [address] [facility] [address] 03/05/2025 15:54:33 03/08/2025 17:23:19 Hypoglycemia 827158418 E16.2 58970 fu firday Insulin resistance 93176 5000 E88.819 fu firday Health Concerns Section Related Observation LastModified by Organization Detai ls LastModified Time None Recorded Concern Status LastModified by Organization Details LastModified Time None Recorded Payers Encounter Date Sequence Insurance Name Policy Number Policy Levine Covered Member ID Levine Member ID Guarantor Name 03/05/2025 1 [employer] [facility] [id number] Sangita Paniagua [id number] Toro P[place]agua 03/05/2025 2 [facility]: MEDICAR E PPO BLUE (MEDICARE REPLACEMENT PPO) [id number] Toro Paniagua [id number] Tor[place] Notes Date Note Type Note Provider Name a ok Address Organization Details Recorded Time 03/05/2025 text/html ROS as noted in the [...] 14-30 days set up complete KODY FRENCH [address] [place] [address], [place], [address], JERONIMO [facility] 03/10/2025 12:36:18
--- OUTSIDE RECORDS SUMMARY | 2025-04-25 14:48 | XMS_ITS | Encounter Summary ---
Author Organization [facility] Address [address] [place] [address] Care Team Providers Care Liner Inserter Name Role Phone Physician, Pcp Unknown Primary Care Provider Xiao vailable Encounter Details Date Type Department Care Team (Late st Contact Info) Description 02/10/2025 Lab Requisition [facility] - Main Lab [address] [facility] [place] [address] Zahra Vick PA [address] [place] [address] Gross hematuria Social History Tobacco Use Types [...] Routine 02/04/2025 12:00 AM EDT Gross hematuria documented in this encounter Results * Non-gynecologic cytology (02/04/2025 12:00 AM EDT) Addendum Results of UroVysion fluorescence in situ hybridization (FISH) testing: CEP3: Normal CEP7: Normal CEP17: Normal LSI 9p21: Normal Interpretation: Normal profile Controls stained appropriately. Note: The results are intended as a screening device and should be interpreted in association with other clinical and pathological findings. 02/25/2025 9:42 AM EDT [facility] Addendum electronically signed by Mark Anthony Piña MD on 02/25/2025 at 0942 EDT Final Diagnosis A. Urine, Voided, ([id number]): Negative for high grade urothelial carcinoma. Abundant blood and acute inflammatory cells are present. Note: UroVysion testing to follow. 02/25/2025 9:42 AM EDT [facility] at 1226 EDT Specimen A Adequacy Satisfactory for evaluation 02/25/2025 9:42 AM EDT [facility] Clinical Information Gross hematuria R31.0 Urine Cytology/FISH (now) 02/25/2025 9:42 AM EDT [facility] Gross Description A. Urine, Voided, ([id number]): Received one ThinPrep slide for cytology and one ThinPrep slide for UroVysion FISH 02/25/2025 9:42 AM EDT [facility] Disclaimer Unless otherwise specified, all tissue is 10% NB formalin fixed and paraffin embedded. Technical pathology services provided by [facility] at [address] [place] [address] (CLIA #[id number]/Milla Valderrama MD, Fabrication Department Supervisor) 02/25/2025 9:42 AM EDT [facility] Urine Urine specimen from urethra / Unknown 02/04/2025 02/10/2025 2:09 PM EDT us [facility] CYTOLOGY ORDERABLES Edited Result - Final [facility]) [facility] [address] [place] [address], documented in this encounter Visit Diagnoses Diagnosis Gross hematuria documented in this encounter Care Teams Liner Inserter Relationship Specialty Start Date End Date Physician, Pcp Unknown PCP - General 01/01/25 documented as of this encounter
== END 2025-04-25 14:37 | disposition home or self-care (01) ==
LOC: HO.MRI 14:36
PROVIDERS: PCP Physician Assistant; Visit Provider Physician Assistant
DX: M48.02 Spinal stenosis, cervical region (principal)
CPT/HCPCS: 72141

== ENCOUNTER → 2025-04-25 14:52 | Outpatient (BNV) | payer OTHER, MEDICARE, SELFPAY | PROVIDERS: PCP Physician Assistant; Visit Provider Radiology Diagnostic Radiology | DX: M48.02 Spinal stenosis, cervical region (principal); M50.322 Other cervical disc degeneration at C5-C6 level; M50.323 Other cervical disc degeneration at C6-C7 level; M47.812 Spondylosis without myelopathy or radiculopathy, cervical region | CPT/HCPCS: 72141 ==

== ENCOUNTER 2025-04-26 09:12 | Outpatient (REF) | payer OTHER, MEDICARE, SELFPAY ==
--- OUTSIDE RECORDS SUMMARY | 2025-04-26 10:14 | XMS_ITS | Clinical Summary ---
Author Organization [facility] Address [address] [place] [address] Phone Care Team Providers Care Personalization Specialist Name Role Phone Physician, Pcp Unknown Primary Care Provider Xiao vailable Encounters Date Type Department Care Team Description 02/10/2025 Lab Requisition [facility] [address] [place] [address] Zahra Vick PA Gross hematuria 02/04/2025 Lab Requisition [facility] [address] [place] [address] Zahra Vick PA Urinary tract [...] Urine No growth 02/05/2025 2:15 PM EDT [facility] Urine Urine specimen obtained by clean catch procedure / Unknown 02/04/2025 02/04/2025 6:55 PM EDT us aZhra [facility] MICROBIOLOGY - GENERAL ORD ERABLES Final Result [facility] [address] [place] [address], * Non-gynecologic cytology (02/04/2025 12:00 AM EDT) Addendum Results of UroVysion fluorescence in situ hybridization (FISH) testing: CEP3: Normal CEP7: Normal CEP17: Normal LSI 9p21: Normal Interpretation: Normal profile Controls stained appropriately. Note: The results are intended as a screening device and should be interpreted in association with other clinical and pathological findings. 02/25/2025 9:42 AM EDT [facility] Addendum electronically signed by Mark Anthony Piña MD on 02/25/2025 at 0942 EDT Final Diagnosis A. Urine, Voided, ([id number]): Negative for high grade urothelial carcinoma. Abundant blood and acute inflammatory cells are present. Note: UroVysion testing to follow. 02/25/2025 9:42 AM EDT [facility] at 1226 EDT Specimen A Adequacy Satisfactory for evaluation 02/25/2025 9:42 AM [facility] Clinical Information Gross hematuria R31.0 Urine Cytology/FISH (now) 02/25/2025 9:42 AM [facility] Gross Description A. Urine, Voided, ([id number]): Received one ThinPrep slide for cytology and one ThinPrep slide for UroVysion FISH 02/25/2025 9:42 AM T [facility] Disclaimer Unless otherwise specified, all tissue is 10% NB formalin fixed and paraffin embedded. Technical pathology services provided by [facility] at [address] [place] [address] [address], [place] [address] (CLIA #[id number]/Milla Valderrama MD, Sales Solutions Representative) 02/25/2025 9:42 AM T [facility] Urine Urine specimen from urethra / Unknown 02/04/2025 02/10/2025 2:09 PM EDT us Zahra [facility] CYTOLOGY ORDERABLES Edited Result - Final [facility] [address] [place] [address], from Last 3 Months Insurance [employer] [facility] Care Teams Personalization Specialist Relationship Specialty Start Date End Date Physician, Pcp Unknown PCP - General 01/01/25
--- OUTSIDE RECORDS SUMMARY | 2025-04-26 10:14 | XMS_ITS | Encounter Summary ---
Author Organization [facility] Address [address] [place] [address] Care Team Providers Care [employer] Supervisor Name Role Phone Physician, Pcp Unknown Primary Care Provider Xiao vailable Encounter Details Date Type Department Care Team (Late st Contact Info) Description 02/10/2025 Lab Requisition [facility] [address] [facility] [place] [address] Zahra Vick PA [address] [place] [address] Gross hematuria Social History Tobacco Use Types [...] and pathological findings. 02/25/2025 9:42 AM EDT [facility] Addendum electronically signed by Mark Anthony Piña MD on 02/25/2025 at 0942 EDT Final Diagnosis A. Urine, Voided, ([id number]): Negative for high grade urothelial carcinoma. Abundant blood and acute inflammatory cells are present. Note: UroVysion testing to follow. 02/25/2025 9:[address] [facility] at 1226 EDT Specimen A Adequacy Satisfactory for evaluation 02/25/2025 9:[address] [facility] Clinical Information Gross hematuria R31.0 Urine Cytology/FISH (now) 02/25/2025 9:[address] [facility] Gross Description A. Urine, Voided, ([id number]): Received one ThinPrep slide for cytology and one ThinPrep slide for UroVysion FISH 02/25/2025 9:[address] [facility] Disclaimer Unless otherwise specified, all tissue is 10% NB formalin fixed and paraffin embedded. Technical pathology services provided by [facility] [address] [facility] [address] [place] [address] (CLIA #[id number]/Milla Valderrama MD, Mask Inspector) 02/25/2025 9:[address] [facility] Urine Urine specimen from urethra / Unknown 02/04/2025 02/10/2025 2:09 PM EDT us Zahra [facility] CYTOLOGY ORDERABLES Edited Result - Final [facility] [address] [place] [address], documented in this encounter Visit Diagnoses Diagnosis Gross hematuria documented in this encounter Care Teams [employer] Supervisor Relationship Specialty Start Date End Date Physician, Pcp Unknown PCP - General 01/01/25 documented as of this encounter
--- OUTSIDE RECORDS SUMMARY | 2025-04-26 10:14 | XMS_ITS | Data Portability ---
Author Organization [facility], Telehealth Patient Home Address [address] [place] [address] Assessment No assessment recorded. Plan of Treatment Reminders Order Date Submit Date Provider Last Modified By Organization Details Last Modified Time Details Appointments None recorded. Lab acth, plasma 2024 [facility], [address] [place] [address], [address], 16:48:20 cortisol, am, serum 2024 [facility], [address] [place] [address], [address], 16:48:20 Referral None recorded. Procedures None recorded. Surgeries None recorded. Imaging MRI, cervical spine, w/o contrast 2024 025 [email or web address] 10 [facility] (Imaging), [address] [place] [address], [address], 5 08:53:14 US, duplex, carotid artery 2024 025 [email or web address] 10 [facility] (Imaging), [address] [place] [address], [address], 5 13:58:33 US, pancreas 2024 025 [email or web address] 10 [facility] (Im[facility]), [address] [place] [address], [address], 10:40:08 Medication Orders EpiPen 2-Elvis 0.3 mg/0.3 mL injection, auto-injec tor 2024 025 [facility] [place], [address] [place], [address], 10:44:19 tamsulosin 0.4 mg capsule 2024 025 [facility] [place], [address] [place], [address], 10:44:19 Patient TargetsNo targets recorded. Patient Instructions Encounter Date Encounter Id Patient Instructions Last Modified By Organization Details Last Modified Time 02/26/2025 [id number] hypoglycemia: care instructions Not available 02/26/2025 14:25:38 Reason for Referral None Reported. Results Created Date Observation Date Name Description Value Unit Range Abnormal Flag Note LastModifiedBy Organization Detail LastModifiedTime 08/16/19 24 08/06/2023 CT, cervi yasmin spine , w/o contr ast No observ ation record ed. [email or web address] [facility] (Medical Records) [address] [place] [address], [address], 08/17/2023 10:31:14 12/03/19 25 12/02/2024 CT, abdom en + pelvi s, w/wo contr ast No observ ation record ed. [email or web address] [facility] (Medical Records) [address] [place], [address], 12/02/2024 09:53:43 12/03/19 25 12/02/2024 CT, abdom en + pelvi s, w/wo contr ast No observ ation record ed. [facility] (Medical Records) [address] [place] [address], [address], 12/04/2024 21:17:38 Result Notes None recorded. Problems Name Problem SNOMED Code Status Onset Date Resolution Date Notes Provider Name and Address Organization Details Recorded Time Benign prostatic hyperplas ia 041044116 Active 2017 Jinny crews [facility] 8 08:25:22 Allergic rhinitis 54916470 Active 2017 [facility] 8 08:25:59 Coronary arteriosc lerosis 34774134 Active 2017 [facility] 8 08:26:08 History of angioplas ty 312349981 Active 2017 [facility] 8 08:26:14 Hypertens bettye disorder 94983043 Active 2017 [facility] 8 08:26:18 Hyperchol esterolem ia 54803483 Active 2017 [facility] 8 08:26:25 Kidney stone 59144778 Active 2017 [facility] 8 08:26:30 Steatotic liver disease 470018502 Active 2017 [facility] 08:26:38 Alcoholis m 1774367 Active 2017 quit 12 years ago KODY FRENCH [address] [place] [place] [address], [address], [facility] 0 12:08:56 Trammell's esophagus 656728087 Active 2017 [facility] 8 08:26:56 Gastroeso phageal reflux disease 986591534 Active 2017 [facility] 8 08:27:04 Arthritis 4650363 Active 2017 [facility] 8 08:27:11 Cobalamin deficienc y 943909636 Active 2017 [facility] 8 08:27:18 Vertigo 876077917 Active 2017 Jinny crews [facility] 8 08:27:24 Migraine 41476523 Active 2017 [facility] 8 08:27:30 Chronic kidney disease 452917693 Active 2017 [facility]inny crews [facility] 8 08:27:46 History of tobacco use 213672570466 3 Active 2017 quit at age 28 [facility] 8 08:28:[address] segment elevation myocardia l infarctio n 219681345 Active 2018 S/P BRYANT [address], [address], [facility] 9 15:51:48 Malignant neoplasm of urinary bladder 067633582 Active 2018 [facility] [address] [place], [address], [facility] 9 15:54:22 Costal chondriti s 18464462 Active 2018 Aguilar Amaro DO [address] [place] [place] [address], [address], [facility] 9 12:37:35 Ataxia 64519466 Active 2021 Aguilar Amaro DO [address] [place] [place] [address], [address], [facility] 2 15:44:40 Excessive sweating 18550484 Active 2021 Aguilar Amaro DO [address] [place] [place] [address], [address], [facility] 2 15:44:57 Dizziness 673896487 Active 2021 KODY FRENCH [address] [place] [place] [address], [address], [facility] 5 16:32:29 Muscle weakness of limb 484235785 Active 2021 Aguilar Amaro DO [address] [place] [place] [address], [address], [facility] 2 15:46:07 Tremor 31612188 Active 2021 Aguilar Amaro DO [address] [place] [address], [address], [facility] 2 15:45:59 Reduced visual acuity 53952237 Active 2021 Aguilar Amaro, DO [address] [place] [address], [address], [facility] 2 15:47:13 Hypoglyce alejandro 554953548 Active 2022 Aguilar Amaro [address], [address], [facility] 5 14:24:54 Insulin resistanc e 559923013 Active 2023 Aguilar Amaro DO [address] [place] [address], [address], [facility] 4 16:16:25 Edema of lower extremity 458360511 Active 2023 KODY FRENCH [address] [place] [address], [address], [facility] 4 13:54:09 Nausea and vomiting 93756073 Active 2024 KODY FRENCH [address] [place] [place] [address], [address], [facility] 5 10:48:42 Urinary frequency due to benign prostatic hypertrop hy 282662887415 102 Active 2024 KODY FRENCH [address] [place] [place] [address], [address], [facility] 5 16:28:43 Hypoadren alism 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 Medical Equipment None Reported. Allergies Allergen ID Allergen Name Allergen Category Reaction Reaction Severity Criticality Documentation Date Start Date Code Code System Note Provider Name and Address Organization Details Recorded Time 2079 honey bee venom medicatio n Not available Not available Not available 12/11/2017 57452 7 RxNorm Jinny Quintanilla [facility] 8 08:21:14 2080 Dilaudid medicatio n Not available Not available Not available 12/11/2017 42210 3 [facility] 08:25:05 208 acetamino phen / oxycodone medicatio n Not available Not available Not available 12/11/2017 82178 3 RxNorm Jinny Quintanilla [facility] 8 08:25:10 2082 oxycodone medicatio n Not available Not available Not available 12/11/2017 7804 RxNorm Jinny Quintanilla [facility] 8 08:25:16 9506 acetamino phen / hydrocodo ne medicatio n Not available Not available Not available 03/19/20252011 68958 2 RxNorm unrec ogniz ed react ion (text : Other (See Comme nts), code: OTH) (from [facility]) Not Available michelle - External Data Service [...] Updated DateTime 5 175.26 cm 23.7 kg/m2 04768.9 3 g 60 /min 99 % 116/78 mm[Hg] Lauren Borges [facility] 14:03:51 Date Recorded Body height Body mass index (BMI) Body weight Oxygen saturation Heart rate Systolic And Diastolic Provider Name and Address Organization Details Last Updated DateTime 5 175.26 cm 24.1 kg/m2 02550.5 6 g 100 % 58 /min 128/66 mm[Hg] ALEXANDRA MAIN [facility] 16:14:29 Social History Question Answer Notes LastModified by Organizat ion Details LastModified Time Tobacco Smoking Status Former Smoker Not Available [facility] 03/08/2020 03:36:24 What Was The Date [...] Codes Diagnosis Note [id number] Aguilar Amaro DO [facility] [address] [facility],[place] [address] 12/11/2017 09:58:16 12/11/2017 12:04:13 Cerebellar disorder 975105645 G93.9 will plan on referring to a [facility] specialist in cerebellar diseases Fatigue 81584647 R53.83 will also get lab work [id number] Aguilar Amaro [facility] [address] [facility] [place] [address] 12/20/2017 12:10:46 12/20/2017 13:13:26 Vitamin B12 deficiency (non anemic) 00478742 E53.8 start inj Dysphagia 70780748 R13.1 0 [id number] Aguilar Amaro [facility] [address] [facility],[place] [address] 01/31/2018 10:42:48 01/31/2018 13:33:34 Cobalamin deficiency 343432468 E53.8 was 174 has been doing the b12 he looks better overall will recc he start doing muscle strengthen ing and join a gym Hypertensive disorder 38 187428 I10 doing well overall has improved Vitamin B1 2 deficiency (non anemic) 43914594 E53.8 start inj [id number] Aguilar Amaro [facility] [address] [facility],[place] [address] 05/20/2018 10:04:13 05/20/2018 10:46:11 Right side sciatica 5484694434 16590 M54.31 History of tobacco use 9319784096 103 Z87.891 Arthritis 6505359 M19.90 s/p THR about 10 years ago Chronic ki dney disease 623243145 N18.9 CT of kidneys non acute Kidney stone 45793931 N2 0.0 no apparent recently passed stone or kidney swelling [id number] Aguilar Amaro [facility] [address] [facility],[place] [address] 11/14/2018 15:06:41 11/14/2018 16:09:15 Acute non-ST segment elevation myocardial infarction 003186354 I21.4 already had cardio f/u yesterday will be having cardiac rehab will be seeing genny hernandez at that time as well BP well controlled Hypercholesterolemia 136 59969 E78.00 on max of lipitor Hypertensive disorder 38 713469 I10 very well controlled [id number] Aguilar Amaro [facility] [address] [facility],[place] [address] 12/16/2018 13:27:27 12/16/2018 14:17:56 Lightheadedness 662427631 R42 as this has been worked up significan tly over the span of [address] amaro, I will defer further work up to dr. amaro as I do not want to repeat testing that have already been done Major depr essive disorder 446750517 F32.9 he denies SI he declines pursuing treatment for depression , as he feels the sources of this is just his vertigo/di zziness/li ghtheadedn ess that limits him from doing the activities he enjoys Vertigo 996205005 R42 [id number] Aguilar Amaro [facility] [address] [facility],[place] [address] 02/27/2019 12:01:42 02/27/2019 13:44:21 Vertigo 367576778 R42 given his persistant and worsening vertiginou s symptoms we will ask a neurologis t to eval Hypertensive disorder 38 539594 I10 doing well overall has improved Costal chondritis 373853 04 M94.0 told to cont with conserv tx and this should cont to fade away Acute ST s egment elevation myocardial infarction 582790922 I21.3 has been asymptomat ic and is doing well [id number] Aguilar Amaro [facility] [address] [facility],[place] [address] 09/09/2019 10:33:43 09/09/2019 11:37:25 Degenerative cervical spinal stenosis 512023908 M48.02 with ataxia and diplopia will need to have his neck eval told to stop cannabis will needs to have rechik after mri Hypertensive disorder 38 359600 I10 doing well overall has improved Cobalamin deficiency 190 250640 E53.8 was 174 has been doing the b12 he looks better overall will need lab [id number] Aguilar Amaro [facility] [address] [facility],[place] [address] 10/27/2019 10:49:39 10/27/2019 12:15:48 Degeneration of cervical intervertebral disc 27930984 M50.[address] Tolentino next week will have him wait on any therapy until seen [id number] Aguilar Amaro [facility] [address] [facility],[place] [place] [address] 02/01/2020 11:38:29 02/01/2020 12:35:59 Pre-surgery evaluation 460573035 Z01.818 Given the patient's history and examinatio n the patient is cleared for surgery [id number] Aguilar Amaro DO [facility] [address] [facility],[place] [address] 05/30/2021 08:19:19 05/30/2021 15:40:14 Chronic kidney disease 738519574 N18.9 Coronary arteriosclerosis 46799345 I25.10 Hypertensive disorder 38 140882 I10 doing well overall has improved Arthritis 8190587 M19.[address] s egment elevation myocardial infarction 572937298 I21.3 has been asymptomat ic and is doing well Nummular eczema 46960921 L30.0 [id number] Aguilar Amaro [facility] [address] [facility],[place] [facility] [place] [address] 08/25/2021 14:51:05 08/25/2021 16:03:16 Ataxia 03584028 R27.0 we will have him get seen by a specialist as this has got to be a more diff diagnosis than we can find Excessive sweating 49296 005 R61 we are going to have them check his temp during this episodes Dizziness 796560226 R42 ongoing from the beginning Muscle wea kness of limb 408341099 M62.81 [place] [id number] Aguilar Amaro [facility] [address] [facility],[place] [address] 01/26/2022 15:18:10 01/26/2022 15:56:55 Excessive sweating 36361923 R61 we are going to have them check his temp during this episodes Tremor 50326596 R25.1 as part of his episodes Reduced visual acuity 13 822887 H54.7 will need a referral to ophtho as he is clearly having problems here [id number] Aguilar Amaro [facility] [address] [facility], [place] [address] 04/26/2023 08:13:07 04/26/2023 11:38:[address] segment elevation myocardial infarction 243707769 I21.3 has been asymptomat ic and is doing well Hypercholesterolemia 136 74561 E78.00 will be Hypertensive disorder 38 266218 I10 doing well overall has improved Chronic ki dney disease 870874706 N18.9 Hypoglycemia 530666445 E 16.2 Cobalamin deficiency 190 882371 E53.8 was 174 has been doing the b12 he looks better overall will need lab [id number] Aguilar Amaro [facility] [address] [facility], [place] [address] 07/30/2023 13:27:06 07/30/2023 15:32:02 Edema of lower extremity 740394273 R60.0 will fu in two weeksdrop down to one tab of the amlodipine Hypoglycemia 115423846 E 16.2 switched referral endo to [facility] [id number] Aguilar Amaro [facility] [address] [facility], [place] [address] 08/21/2023 08:41:26 08/21/2023 16:01:02 Edema of lower extremity 794784092 R60.0 fu next week [id number] Aguilar Amaro [facility] [address] [facility] [address] 02/26/2025 13:42:26 03/01/2025 09:02:15 Depression screening 558214033 Z13.31 Hypoglycemia 923297369 E 16.2 85820 given freestye kartik to monitor sugar and see what happens with these episodes [id number] Aguilar Amaro [facility] [address] [facility],[place] [address] 03/03/2025 15:39:55 03/05/2025 09:15:04 Hypoglycemia 626327453 E16.2 41117 fu firday [id number] Aguilar Amaro [facility] [address] [facility],[place] [address] 03/05/2025 15:54:33 03/08/2025 17:23:19 Hypoglycemia 444420532 E16.2 67019 fu firday Insulin resistance 89244 5000 E88.819 fu firday [id number] Aguilar Amaro [facility] [address] [facility],[place] [address] 03/19/2025 15:59:05 03/19/2025 17:02:28 Depression screening 311702109 Z13.31 Allergic r eaction to bee sting 926320765 T63.441A Urinary fr equency due to benign prostatic hypertrophy 5910891113 75265 N40.1 R35.0 63357749 Hypoglycemia 319020999 E 16.2 11513 Dizziness 785826827 R42 96055 Spinal geetha nosis in cervical region 70260142 M48.02 39062 Health Concerns Section Related Observation LastModified by Organization Detai ls LastModified Time None Recorded Concern Status LastModified by Organization Details LastModified Time None Recorded Advance Directives Directive None Recorded Payers Insurance Date Sequence Insurance Name Policy Number Policy Levine Covered Member ID Levine Member ID Guarantor Name 04/20/2025 1 BLUE B[employer]IT [employer] [facility] (EPO) [id number] Sangita Paniagua [id number] Toro Paniagua 04/20/2025 2 [facility]: MEDICARE PPO BLUE (MEDICARE REPLACEMENT PPO) [id number] Toro Paniagua [id number] Toro Paniagua 09/09/2019 1 UMR [id number] Sangita Paniagua [id number] Toro Paniagua 02/26/2025 1 MEDICARE [place]: [employer] Toro Paniagua [id number] Toro Paniagua Notes Date Note Type [...] exam of his legs KODY FRENCH [address] [place], [address], [facility] 08/21/2023 14:46:33 02/26/2025 text/html ROS as noted in the HPI hewre for rechk and is doing th e same he has been seen and eval by the endocrine Aguilar Amaro DO [address] [place], [address], [facility] 02/26/2025 14:26:10 03/03/2025 text/html ROS as noted in the HPI visit for Freestyle kartik 3+ instructions the sensor is ineffective/dud, coming back on saturday to have a new on placed and set up reader, smart phone is harder for patient to us will fu with pt and saturday KODY FRENCH [address] [place], [address], [facility] 03/03/2025 16:33:22 03/05/2025 text/html ROS [...] days set up complete KODY FRENCH [address] [place], [address], [facility] 03/10/2025 12:36:18 03/19/2025 text/html ROS [...] the meantime needs refills of KODY FRENCH [address] [place] [address], [place], [address], [facility] 03/19/2025 16:59:03
--- OUTSIDE RECORDS SUMMARY | 2025-04-26 10:14 | XMS_ITS | Clinical Summary ---
Author Organization Barbara Fransisco Johansenchula jacques Address [address] [place] [address] Care Team Providers Care Electrical Solderer Name Role Phone Aguilar Taylor MD Primary Care Provider [phone] Allergies Active Allergy Reactions Criticality Noted Date [...] Plan of Treatment Not on file Insurance [facility] Care Teams Electrical Solderer Relationship Specialty Start Date End Date Aguilar Taylor MD [address] [place] [address] PCP - General Internal Medicine 10/11/15
--- OUTSIDE RECORDS SUMMARY | 2025-04-26 10:15 | XMS_ITS | Continuity of Care Document ---
Author Organization [facility] Address [address] [place] [address] [place] [address] Assessment No assessment recorded. Plan of Treatment [...] Details Recorded Time Benign prostatic hyperplas ia 300532607 Active 2017 Jinny crews [facility] 8 08:25:22 Allergic rhinitis 56465490 Active 2017 Jinny crews [facility] 8 08:25:59 Coronary arteriosc lerosis 52694692 Active 2017 Jinny crews [facility] 8 08:26:08 History of angioplas ty 302963190 Active 2017 Jinny crews [facility] 8 08:26:14 Hypertens bettye disorder 63430697 Active 2017 Jinny crews [facility] 8 08:26:18 Hyperchol esterolem ia 96253675 Active 2017 Jinny crews [facility] 8 08:26:25 Kidney stone 58488287 Active 2017 Jinny crews [facility] 8 08:26:30 Steatotic liver disease 166600384 [facility] 8 08:26:38 Alcoholis m 1219330 Active 2017 quit 12 years ago KODY FRENCH [address] [place], [address], [facility] 0 12:08:56 Trammell's esophagus 370152138 Active 2017 Jinny crews [facility] 8 08:26:56 Gastroeso phageal reflux disease 042589534 [facility] 8 08:27:04 Arthritis 7545949 Active 2017 Jinny crews [facility] 8 08:27:11 Cobalamin deficienc y 629196669 Active 2017 Jinny crews [facility] 8 08:27:18 Vertigo 274134268 [facility] 2017 [facility] 8 08:27:24 Migraine 20051833 Active 2017 [facility] 8 08:27:30 Chronic kidney disease 150787976 Active 2017 [facility] 8 08:27:46 History of tobacco use 862922122513 3 Active 2017 quit at age 28 Jinny crews [facility] 8 08:28:[address] segment elevation myocardia l infarctio n 388032061 Active 2018 S/P BRYANT Samreen David [facility] [address] [place], [address], [facility] Internal [facility] 9 15:51:48 Malignant neoplasm of urinary bladder 022649351 Active 2018 [facility] [address] [place], [address], [facility] 9 15:54:22 Costal chondriti s 57696285 Active 2018 Aguilar Taylor, DO [address] [place] [address], [address], [facility] 9 12:37:35 Ataxia 28389445 Active 2021 Aguilar Taylor, DO [address] [place] [address], [address], [facility] 2 15:44:40 Excessive sweating 42213015 Active 2021 Aguilar Taylor, DO [address] [place] [address], [address], [facility] 2 15:44:57 Dizziness 066822099 Active 2021 KODY FRENCH [address] [place] [address], [address], [facility] 5 16:32:29 Muscle weakness of limb 114437164 Active 2021 Aguilar Taylor, DO [address] [place] [address], [address], [facility] 2 15:46:07 Tremor 79679405 Active 2021 Aguilar Taylor, DO [address] [place] [address], [address], [facility] 2 15:45:59 Reduced visual acuity 43497615 Active 2021 Aguilar Taylor, DO [address] [place] [address], [address], [facility] 2 15:47:13 Hypoglyce alejandro 347269580 Active 2022 Aguilar Taylor, DO [address] [place] [address], [address], [facility] 5 14:24:54 Insulin resistanc e 073640564 Active 2023 Aguilar Taylor DO [address] [place] [address], [address], [facility] 4 16:16:25 Edema of lower extremity 045936737 Active 2023 KODY FRENCH [address] [place], [address], [facility] 4 13:54:09 Nausea and vomiting 57561004 Active 2024 KODY FRENCH [address] [place], [address], [facility] 5 10:48:42 Urinary frequency due to benign prostatic hypertrop hy 014221882293 102 Active 2024 KODY FRENCH [address] [place] [address], [address], [facility] 5 16:28:43 Hypoadren alism 188396587 Active 2024 KODY FRENCH [address] [place], [address], [facility] 5 16:40:39 Spinal stenosis in cervical region 11617414 Active 2024 KODY FRENCH [address] [place] [address], [address], [facility] 5 16:41:56 Hypercort isolism 82357728 Active 2024 KODY FRENCH [address] [place] [address], [address], [facility] 5 16:45:48 Problem Notes None recorded. Medical Equipment None Reported. Allergies Allergen ID Allergen Name Allergen Category Reaction Reaction Severity Criticality Documentation Date Start Date Code Code System Note Provider Name and Address Organization Details Recorded Time 2079 honey bee venom medicatio n Not available Not available Not available 12/11/2017 77119 7 RxNorm Jinny crews [facility] 8 08:21:14 2080 Dilaudid medicatio n Not available Not available Not available 12/11/2017 16413 3 RxNorm Jinny crews [facility] 8 08:25:05 208 acetamino phen / oxycodone medicatio n Not available Not available Not available 12/11/2017 44931 3 RxNorm Jinny crews [place] [facility] 8 08:25:10 2082 oxycodone medicatio n Not available Not available Not available 12/11/2017 7804 RxNorm Jinny crews [place] [facility] 8 08:25:16 9506 acetamino phen / hydrocodo ne medicatio n Not available Not available Not available 03/19/20252011 42347 2 RxNorm unrec ogniz ed react ion (text : Other (See Comme nts), code: OT) (from [facility]) Not Available [place] - External Data Service - prod 5 [...] ICD10 Code Diagnosis IMO Codes Diagnosis Note [id number] Aguilar Taylor DO [facility] Medicine [address],[place] [address] 02/26/2025 13:42:26 03/01/2025 09:02:15 Depression screening 413998989 Z13.31 Hypoglycemia 919655953 E 16.2 81517 given freestye kartik to monitor sugar and see what happens with these episodes [id number] Aguilar Taylor DO [facility] Internal Medicine [address],Cardoso ittiti [place] [address] 03/03/2025 15:39:55 03/05/2025 09:15:04 Hypoglycemia 857324127 E16.2 01290 fu Health Concerns Section Related Observation LastModified by Organization Detai ls LastModified Time None Recorded Concern Status LastModified by Organization Details LastModified Time None Recorded Payers Encounter Date Sequence Insurance Name Policy Number Policy Levine Covered Member ID Levine Member ID Guarantor Name 03/03/2025 1 [employer]UE [employer] [facility] (EPO) [id number] Sangita Paniagua [id number] Toro Paniagua 03/03/2025 2 [facility]: MEDICAR E PPO BLUE (MEDICARE REPLACEMENT PPO) [id number] Toro Paniagua [id number] Toro Paniagua Notes Date Note Type Note Provider Name a ca Address Organization Details Recorded Time 03/03/2025 text/html ROS as noted in the HPI visit for Freestyle kartik 3+ instructions the sensor is ineffective/dud, coming back on saturday to have a new on placed and set up reader, smart phone is harder for patient to us will fu with pt and saturday KODY FRENCH [address] [facility] [place], [place], [address], [facility] Medicine 03/03/2025 16:33:22
--- OUTSIDE RECORDS SUMMARY | 2025-04-26 10:15 | XMS_ITS | Encounter Summary ---
Author Organization [facility] Address [address] [place] [address] Care Team Providers Care State Patrol Officer Name Role Phone Physician, Pcp Unknown Primary Care Provider Xiao vailable Encounter Details Date Type Department Care Team (Late st Contact Info) Description 02/04/2025 Lab Requisition [facility] - Main Lab [address] [place] [phone] Zahra Vick PA [address] [place] [address] Urinary tract infection, site not specified; Gross [...] Urine No growth 02/05/2025 2:15 PM EDT [facility] Urine Urine specimen obtained by clean catch procedure / Unknown 02/04/2025 02/04/2025 6:55 PM EDT us Zahra [facility] MICROBIOLOGY - GENERAL ORD ERABLES Final Result [facility] [address] [place] [address], documented in this encounter Visit Diagnoses Diagnosis Urinary tract infection, site not specified Gross hematuria documented in this encounter Care Teams State Patrol Officer Relationship Specialty Start Date End Date Physician, Pcp Unknown PCP - General 01/01/25 documented as of this encounter
--- OUTSIDE RECORDS SUMMARY | 2025-04-26 10:15 | XMS_ITS | Encounter Summary ---
Author Organization [facility] Address [address] [place] [address] Care Team Providers Care Weed Cooking Operator Name Role Phone Physician, Pcp Unknown Primary Care Provider Xiao vailable Encounter Details Date Type Department Care Team (Late st Contact Info) Description 01/01/2025 Lab Requisition [facility] - Main Lab [address] [facility] [place] [address] Reno Guzmán MD [address] [place] [address] Personal history of malignant neoplasm of bladder; [...] AM EDT) Final Diagnosis A. Urine, Voided, ([id number]): Negative for high grade urothelial carcinoma. Results of UroVysion fluorescence in situ hybridization (FISH) testing: CEP3: Normal CEP7: Normal CEP17: Normal LSI 9p21: Normal Interpretation: Normal profile Controls stained appropriately. Note: The results are intended as a screening device and should be interpreted in association with other clinical and pathological findings. 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 Urine, Voided, ([id number]): Received one ThinPrep slide for cytology and one ThinPrep slide for UroVysion FISH 01/13/2025 12:10 PM EDT [facility] Disclaimer Unless otherwise specified, all tissue is 10% NB formalin fixed and paraffin embedded. Technical pathology services provided by [facility] at [address] [place] [address] [address] [address] (CLIA #[id number]/Milla Valderrama MD, Analyst [employer]) 01/13/2025 12:10 PM EDT [facility] Urine Urine specimen from urethra / Unknown 12/18/2024 01/01/2025 3:40 PM EDT us Reno Guzmán MD LAB CYTOLOGY ORDERABLES Final R esult [facility] [address] [place] [address], documented in this encounter Visit Diagnoses Diagnosis Personal history of malignant neoplasm of bladder Carcinoma in situ of bladder documented in this encounter Care Teams Weed Cooking Operator Relationship Specialty Start Date End Date Physician, Pcp Unknown PCP - General 01/01/25 documented as of this encounter
--- OUTSIDE RECORDS SUMMARY | 2025-04-26 10:15 | XMS_ITS | Continuity of Care Document ---
Author Organization [facility], [facility] Address [address] [place] [address] Assessment No assessment recorded. Plan of Treatment Reminders Order Date Submit Date Provider Last Modified By Organization Details Last Modified Time Details Appointments None recorded. Lab acth, plasma 2024 [facility], [address] [place] [address], [address], 16:48:20 cortisol, am, serum 2024 [facility], [address] [place] [address], [address], 16:48:20 Referral None recorded. Procedures None recorded. Surgeries None recorded. Imaging MRI, cervical spine, w/o contrast 2024 025 [email or web address] 10 [facility] [address] [place] [address], [address], 5 08:53:14 US, duplex, carotid artery 2024 025 [email or web address] 10 [facility] [address] [place] [address], [address], 5 13:58:33 US, pancreas 2024 025 [email or web address] 10 [facility] [address] [place] [address], [address], 5 10:40:08 Medication Orders EpiPen 2-Elvis 0.3 mg/0.3 mL injection, auto-injec tor 2024 025 [facility] [place], [address] [place], [address], 5 10:44:19 tamsulosin 0.4 mg capsule 2024 025 [facility] [place], [address] [place], [address], 5 10:44:19 Patient TargetsNo targets recorded. Patient InstructionsNo instructions recorded. Reason for Referral None Reported. Problems Name Problem SNOMED Code Status Onset Date Resolution Date Notes Provider Name and Address Organization Details Recorded Time Benign prostatic hyperplas ia 636120379 Active 2017 Jinny crews [facility] 8 08:25:22 Allergic rhinitis 05865430 Active 2017 Jinny crews [facility] 8 08:25:59 Coronary arteriosc lerosis 03760996 Active 2017 Jinny crews [facility] 8 08:26:08 History of angioplas ty 804129763 Active 2017 Jinny crews [facility] 8 08:26:14 Hypertens bettye disorder 68484806 Active 2017 Jinny crews [facility] 8 08:26:18 Hyperchol esterolem ia 52101259 Active 2017 Jinny crews [facility] 8 08:26:25 Kidney stone 26939595 Active 2017 Jinny crews [facility] 8 08:26:30 Steatotic liver disease 462080163 Active 2017 Jinny crews [facility] 8 08:26:38 Alcoholis phong 1620643 Active 2017 quit 12 years KODY Jimenez [address] [place], [address], [facility] Internal [facility] 0 12:08:56 Trammell's esophagus 191995854 [facility] 08:26:56 Gastroeso phageal reflux disease 071047660 Active 2017 [facility] 8 08:27:04 Arthritis 3510883 Active 2017 [facility] 8 08:27:11 Cobalamin deficienc y 917357016 Active 2017 [facility] 8 08:27:18 Vertigo 083107098 Active 2017 [facility] 8 08:27:24 Migraine 24356931 Active 2017 [facility] 8 08:27:30 Chronic kidney disease 229931098 Active 2017 [facility] 8 08:27:46 History of tobacco use 815640989365 3 Active 2017 quit at age 28 Jinny Quintanilla 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 Active 2018 Aguilar Taylor DO [address] [place], [address], [facility] 9 12:37:35 Ataxia 96252988 Active 2021 Aguilar Taylor, DO [address] [place] [address], [address], [facility] 2 15:44:40 Excessive sweating 59410602 Active 2021 Aguilar Taylor, DO [address] [place] [address], [address], [facility] 2 15:44:57 Dizziness 428769399 Active 2021 KODY FRENCH [address] [place] [address], [address], [facility] 5 16:32:29 Muscle weakness of limb 011584491 Active 2021 Aguilar Taylor DO [address] [place] [address], [address], [facility] 2 15:46:07 Tremor 03083099 Active 2021 Aguilar Taylor, DO [address] [place] [address], [address], [facility] 2 15:45:59 Reduced visual acuity 22574995 Active 2021 Aguilar Taylor, DO [address] [place] [address], [address], [facility] 2 15:47:13 Hypoglyce alejandro 648558672 Active 2022 Aguilar Taylor, DO [address] [place] [address], [address], [facility] 5 14:24:54 Insulin resistanc e 328952122 Active 2023 Aguilar Taylor DO [address] [place] [address], [address], [facility] 4 16:16:25 Edema of lower extremity 348691218 Active 2023 KODY FRENCH [address] [place] [address], [address], [facility] 4 13:54:09 Nausea and vomiting 90096210 Active 2024 KODY FRENCH [address] [place], [address], [facility] 5 10:48:42 Urinary frequency due to benign prostatic hypertrop 446440257013 102 Active 2024 KODY FRENCH [address] [place] [address], , [facility] 5 16:28:43 Hypoadren alism 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 Medical Equipment None Reported. Allergies Allergen ID Allergen Name Allergen Category Reaction Reaction Severity Criticality Documentation Date Start Date Code Code System Note Provider Name and Address Organization Details Recorded Time 2079 honey bee venom medicatio n Not available Not available Not available 12/11/2017 37885 7 RxNorm Jinny crews [facility] Internal [facility] 8 08:21:14 2080 Dilaudid medicatio n Not available Not available Not available 12/11/2017 53685 3 RxNorm Jinny crews [facility] 8 08:25:05 208 acetamino phen / oxycodone medicatio n Not available Not available Not available 12/11/2017 31392 3 RxNorm Jinny crews [facility] 8 08:25:10 2083 oxycodone medicatio n Not available Not available Not available 12/11/2017 7804 RxNorm JERONIMO [facility] 8 08:25:16 9506 acetamino phen / hydrocodo ne medicatio n Not available Not available Not available 03/19/20252011 96672 2 RxNorm unrec ogniz ed react ion (text : Other (See Comme nts), code: OTH) (from [facility]) Not Available [place] - External Data Service - prod 5 [...] Updated DateTime 5 175.26 cm 24.1 kg/m2 17363.5 6 g 100 % 58 /min 128/66 [...] ICD10 Code Diagnosis IMO Codes Diagnosis Note [id number] Aguilar Goveafreya [facility] Medicine [address] [place] [address], [place] [address] 02/26/2025 13:42:26 03/01/2025 09:02:15 Depression screening 709571554 Z13.31 Hypoglycemia 097353733 E 16.2 65498 given freestye kartik to monitor sugar and see what happens with these episodes [id number] Aguilar Goveafreya [facility] Medicine [address] [place] [address], [place] [address] 03/03/2025 15:39:55 03/05/2025 09:15:04 Hypoglycemia 653365891 E16.2 89205 fu firday [id number] Aguilar Goveafreya [facility] Internal [address], [place] [address] 03/05/2025 15:54:33 03/08/2025 17:23:19 Hypoglycemia 812762529 E16.2 81992 fu firday Insulin resistance 49698 5000 E88.819 fu firday [id number] Aguilar Goveafreya [facility] [address], [place] [address] 03/19/2025 15:59:05 03/19/2025 17:02:28 Depression screening 336325521 Z13.31 Allergic r eaction to bee sting 020678439 T63.441A Urinary fr equency due to benign prostatic hypertrophy 0802880085 87977 N40.1 R35.0 58082807 Hypoglycemia 609587992 E 16.2 99148 Dizziness 344490088 R42 44557 Spinal geetha nosis in cervical region 13678654 M48.02 10183 Health Concerns Section Related Observation LastModified by Organization Detai ls LastModified Time None Recorded Concern Status LastModified by Organization Details LastModified Time None Recorded Payers Encounter Date Sequence Insurance Name Policy Number Policy Levine Covered Member ID Levine Member ID Guarantor Name 03/19/2025 1 [employer] [facility] (EPO) [id number] Sangita Paniagua [id number] Toro Paniagua 03/19/2025 2 [facility] MEDIC[facility] E PPO BLUE (MEDICARE REPLACEMENT PPO) [id number] Toro Paniagua [id number] Toro Paniagua Notes Date Note Type [...] the meantime needs refills of KODY FRENCH [address] [place] [address], [place], [address], JERON[facility] 03/19/2025 16:59:03
--- OUTSIDE RECORDS SUMMARY | 2025-04-26 10:15 | XMS_ITS | Continuity of Care Document ---
Author Organization [facility] Address [address] [place] [address] [place] [address] Assessment No assessment recorded. Plan of Treatment [...] Details Recorded Time Benign prostatic hyperplas ia 314618889 Active 2017 Jinny crews [facility] 8 08:25:22 Allergic rhinitis 07158474 Active 2017 Jinny crews [facility] 8 08:25:59 Coronary arteriosc lerosis 81319645 Active 2017 Jinny crews [facility] 8 08:26:08 History of angioplas ty 001322773 Active 2017 Jinny crews [facility] 8 08:26:14 Hypertens bettye disorder 04898501 Active [address] [facility] [facility] 8 08:26:18 Hyperchol esterolem ia 07403030 Active 2017 Jinny crews [facility] 8 08:26:25 Kidney stone 58757675 Active 2017 Jinny crews [facility] 8 08:26:30 Steatotic liver disease 755509229 [facility] 2017 [facility] 8 08:26:38 Alcoholis m 4891803 Active 2017 quit 12 years ago KODY FRENCH [address] [place], [address], [facility] 0 12:08:56 Trammell's esophagus 437794367 Active 2017 Jinny crews [facility] 8 08:26:56 Gastroeso phageal reflux disease 231506348 Active 2017 [facility] 8 08:27:04 Arthritis 5051053 Active 2017 Jinny crews [facility] 8 08:27:11 Cobalamin deficienc y 880807555 Active 2017 Jinny crews [facility] 8 08:27:18 Vertigo 744157409 [facility] 2017 [facility] 8 08:27:24 Migraine 24483141 Active 2017 [facility] 8 08:27:30 Chronic kidney disease 835002564 Active 2017 [facility] 8 08:27:46 History of tobacco use 305154904682 3 Active 2017 quit at age 28 Jinny crews [facility] 8 08:28:[address] segment elevation myocardia l infarctio n 101218565 Active 2018 S/P BRYANT Samreen David [facility] [address] [place], [address], [facility] Internal [facility] 9 15:51:48 Malignant neoplasm of urinary bladder 189521639 Active 2018 [facility] [address] [place], [address], [facility] 9 15:54:22 Costal chondriti s 67343428 Active 2018 Aguilar Taylor, DO [address] [place] [address], [address], [facility] 9 12:37:35 Ataxia 42152737 Active 2021 Aguilar Taylor, DO [address] [place] [address], [address], [facility] 2 15:44:40 Excessive sweating 10556750 Active 2021 Aguilar Taylor, DO [address] [place] [address], [address], [facility] 2 15:44:57 Dizziness 128382683 Active 2021 KODY FRENCH [address] [place] [address], [address], [facility] 5 16:32:29 Muscle weakness of limb 700196572 Active 2021 Aguilar Taylor, DO [address] [place] [address], [address], [facility] 2 15:46:07 Tremor 21574467 Active 2021 Aguilar Taylor, DO [address] [place] [address], [address], [facility] 2 15:45:59 Reduced visual acuity 50127760 Active 2021 Aguilar Taylor, DO [address] [place] [address], [address], [facility] 2 15:47:13 Hypoglyce alejandro 581443320 Active 2022 Aguilar Taylor, DO [address] [place] [address], [address], [facility] 5 14:24:54 Insulin resistanc e 558554096 Active 2023 Aguilar Taylor DO [address] [place] [address], [address], [facility] 4 16:16:25 Edema of lower extremity 187847255 Active 2023 KODY FRENCH [address] [place], [address], [facility] 4 13:54:09 Nausea and vomiting 00579597 Active 2024 KODY FRENCH [address] [place], [address], [facility] 5 10:48:42 Urinary frequency due to benign prostatic hypertrop hy 259460735508 102 Active 2024 KODY FRENCH [address] [place] [address], [address], [facility] 5 16:28:43 Hypoadren alism 211822237 Active 2024 KODY FRENCH [address] [place], [address], [facility] 5 16:40:39 Spinal stenosis in cervical region 07072382 Active 2024 KODY FRENCH [address] [place] [address], [address], [facility] 5 16:41:56 Hypercort isolism 05938946 Active 2024 KODY FRENCH [address] [place] [address], [address], [facility] 5 16:45:48 Problem Notes None recorded. Medical Equipment None Reported. Allergies Allergen ID Allergen Name Allergen Category Reaction Reaction Severity Criticality Documentation Date Start Date Code Code System Note Provider Name and Address Organization Details Recorded Time 2079 honey bee venom medicatio n Not available Not available Not available 12/11/2017 16083 7 RxNorm Jinny crews [facility] 8 08:21:14 2080 Dilaudid medicatio n Not available Not available Not available 12/11/2017 60987 3 RxNorm Jinny crews [facility] 8 08:25:05 208 acetamino phen / oxycodone medicatio n Not available Not available Not available 12/11/2017 64754 3 RxNorm Jinny crews [place] [facility] 8 08:25:10 2082 oxycodone medicatio n Not available Not available Not available 12/11/2017 7804 RxNorm Jinny crews [place] [facility] 8 08:25:16 9506 acetamino phen / hydrocodo ne medicatio n Not available Not available Not available 03/19/20252011 29429 2 RxNorm unrec ogniz ed react ion (text : Other (See Comme nts), code: OT) (from [facility]) Not Available enterprise - External Data Service - prod 5 [...] Tobacco Smoking Status Former Smoker Not Available [facility] 03/08/2020 03:36:24 What Was The Date [...] ICD10 Code Diagnosis IMO Codes Diagnosis Note [id number] Aguilar Taylor [facility] Internal Medicine [address] [address] 02/26/2025 13:42:26 03/01/2025 09:02:15 Depression screening 723524373 Z13.31 Hypoglycemia 754673468 E 16.2 09758 given freestye kartik to monitor sugar and see what happens with these episodes [id number] Aguilar Taylor [facility] Internal Medicine [address] [address] 03/03/2025 15:39:55 03/05/2025 09:15:04 Hypoglycemia 794593010 E16.2 78224 fu firday [id number] Aguilar Taylor [facility] Internal Medicine [address] [facility] [address] 03/05/2025 15:54:33 03/08/2025 17:23:19 Hypoglycemia 212889496 E16.2 94802 fu firday Insulin resistance 98578 5000 E88.819 fu firday Health Concerns Section Related Observation LastModified by Organization Detai ls LastModified Time None Recorded Concern Status LastModified by Organization Details LastModified Time None Recorded Payers Encounter Date Sequence Insurance Name Policy Number Policy Levine Covered Member ID Levine Member ID Guarantor Name 03/05/2025 1 [employer]UE [employer] OF [facility] [id number] Sangita Paniagua [id number] Tor[address] [place]agua 03/05/2025 2 [facility]: MEDICAR E PPO BLUE (MEDICARE REPLACEMENT PPO) [id number] Toro Paniagua [id number] [place] Notes Date Note Type Note Provider Name a al Address Organization Details Recorded Time 03/05/2025 text/html [...] 14-30 days set up complete KODY FRENCH [address] [place] [address], [place], [address], [facility] 03/10/2025 12:36:18
--- OUTSIDE RECORDS SUMMARY | 2025-04-26 10:15 | XMS_ITS | Encounter Summary ---
Author Organization Barbara Green [facility] Address [address] [place] [address] Care Team Providers Care Database Architect Name Role Phone Silviano MARTINEZ MD, Nathan Primary Care Provider + [phone] Aguilar Taylro MD Primary Care Provider [phone] Encounter Details Date Type Department Care Team (Late st Contact Info) Description 07/27/2011 Clinical Conversion Encounter Department of Urology [facility] Urology [address] [place] [address] Asim Urias MD [address] [place] [address] Social History Tobacco Use Types Packs/Day Years Used Date Smoking Tobacco: Never Assessed Sex and Gender Information Value Date Recorded Sex Assigned at Not on file Legal Sex Male 3:01 AM EST Gender Identity Not on file Sexual Orientation Not on file documented as of this encounter Progress Notes * Asim Urias MD - 06/19/2014 10:37 AM EST [id number],[place], [place]. Reason For Visit Bladder cancer second [...] sleeping, heartburn, joint pain, numbness, bloating. Vitals [facility] Vitals Data Includes: Current Encounter 27Jul2011 08:27AM [...] minutes Signatures Electronically signed by : ASIM UIRAS MD; Jul 27 2011 1:14PM documented in this encounter Miscellaneous Notes * Letter - Asim Urias MD - 06/19/2014 10:37 AM EST [id number],ANÍBAL REVISED [place], [place] Reason For Visit Bladder cancer second [...] on filedocumented in this encounter Care Teams Database Architect Relationship Specialty Start Date End Date Olayinka Shore II, MD [address] [place] [address] PCP - General 03/15/14 10/10/15 Aguilar Taylor MD [address] [place] [address] PCP - General Internal Medicine 10/11/15 documented as of this encounter
--- OUTSIDE RECORDS SUMMARY | 2025-04-26 10:15 | XMS_ITS | Continuity of Care Document ---
Author Organization [facility] Address [address] [place] [address] Assessment No assessment recorded. Plan of Treatment [...] By Organization Details Last Modified Time 02/26/2025 [id number] hypoglycemia: care instructions Not available 02/26/2025 14:25:38 Reason for Referral None Reported. Problems Name Problem SNOMED Code Status Onset Date Resolution Date Notes Provider Name and Address Organization Details Recorded Time Benign prostatic hyperplas ia 231339224 Active 2017 Jinny crews [facility] 8 08:25:22 Allergic rhinitis 07426433 Active 2017 Jinny crews [facility] 8 08:25:59 Coronary arteriosc lerosis 04129393 Active 2017 Jinny crews [facility] 8 08:26:08 History of angioplas ty 448089437 Active 2017 Jinny crews [facility] 8 08:26:14 Hypertens bettye disorder 06543236 Active 2017 Jinny crews [facility] 8 08:26:18 Hyperchol esterolem ia 36691016 Active 2017 Jinny crews [facility] 8 08:26:25 Kidney stone 27619191 Active 2017 [facility] 8 08:26:30 Steatotic liver disease 755195425 Active 2017 [facility] 8 08:26:38 Alcoholis phong 3157521 Active 2017 quit 12 years ago KODY FRENCH [address] [place], [address], [facility] 0 12:08:56 Trammell's esophagus 169788587 Active 2017 [facility] 8 08:26:56 Gastroeso phageal reflux disease 979372042 Active 2017 Jinny Quintanilla eleonora [facility] 8 08:27:04 Arthritis 7051161 Active 2017 Jinny crews [facility] 8 08:27:11 Cobalamin deficienc y 089229090 Active 2017 Jinny Dwight crews [facility] 8 08:27:18 Vertigo 719721956 Active 2017 Jinny Dwight crews [facility] 8 08:27:24 Migraine 54495176 Active 2017 Jinny Dwight crews [facility] 8 08:27:30 Chronic kidney disease 779482803 Active 2017 Jinnypramod Quintanilla eleonora [facility] 8 08:27:46 History of tobacco use 204695117461 3 Active 2017 quit at age 28 Jinnypramod crews [facility] 8 08:28:[address] segment elevation myocardia l infarctio n 916793976 Active 2018 S/P BRYANT Samreen Hernandez [address], [address], [facility] Internal [facility] 9 15:51:48 Malignant neoplasm of urinary bladder 659132604 Active 2018 ASTRID Gallo [address] [place] [address], [address], [facility] Internal Medicine 9 15:54:22 Costal chondriti s 10781654 Active 2018 Aguilar Taylor, DO [address] [place] [address], [address], [facility] Medicine 9 12:37:35 Ataxia 74978164 Active 2021 Aguilar Taylor, DO [address] [place] [address], [address], [facility] Medicine 2 15:44:40 Excessive sweating 19793776 Active 2021 Aguilar Taylor, DO [address] [place] [address], [address], [facility] Medicine 2 15:44:57 Dizziness 030653999 Active 2021 KODY FRENCH [address] [place] [address], [address], [facility] Medicine 5 16:32:29 Muscle weakness of limb 887091149 Active 2021 Aguilar Taylor, DO [address] [place] [address], [address], [facility] 2 15:46:07 Tremor 75511244 Active 2021 Aguilar Taylor, DO [address] [place] [address], [address], [facility] Medicine 2 15:45:59 Reduced visual acuity 14447159 Active 2021 Aguilar Taylro DO [address] [place] [address], [address], [facility] 2 15:47:13 Hypoglyce alejandro 703473160 Active 2022 Aguilar Taylor DO [address] [place] [address], [address], [facility] 5 14:24:54 Insulin resistanc e 361811528 Active 2023 Aguilar Taylor, [address] [place], [address], [facility] 4 16:16:25 Edema of lower extremity 508922054 Active 2023 KODY FRENCH [address] [place] [address], [address], [facility] 4 13:54:09 Nausea and vomiting 02123642 Active 2024 KODY FRENCH [address] [place] [address], [address], [facility] Medicine 5 10:48:42 Urinary frequency due to benign prostatic hypertrop hy 738408283783 102 Active 2024 KODY FRENCH [address] [place] [address], [address], [facility] Internal Medicine 5 16:28:43 Hypoadren alism 273436692 Active 2024 KODY FRENCH [address] [place] [address], [address], [facility] Internal [facility] 5 16:40:39 Spinal stenosis in cervical region 56551873 Active 2024 KODY FRENCH [address] [place] [address], [address], [facility] Medicine 5 16:41:56 Hypercort isolism 67641213 Active 2024 KODY FRENCH [address] [place] [address], [address], [facility] 5 16:45:48 Problem Notes None recorded. Medical Equipment None Reported. Allergies Allergen ID Allergen Name Allergen Category Reaction Reaction Severity Criticality Documentation Date Start Date Code Code System Note Provider Name and Address Organization Details Recorded Time 2079 honey bee venom medicatio n Not available Not available Not available 12/11/2017 14446 7 [facility] 8 08:21:14 2080 Dilaudid medicatio n Not available Not available Not available 12/11/2017 25822 3 RxNorm Jinny crews [facility] Internal [facility] 8 08:25:05 2082 acetamino phen / oxycodone medicatio n Not available Not available Not available 12/11/2017 77506 3 RxNorm Jinny crews [facility] 8 08:25:10 3 oxycodone medicatio n Not available Not available Not available 12/11/2017 7804 RxNorm Jinny crews [facility] 8 08:25:16 9506 acetamino phen / hydrocodo ne medicatio n Not available Not available Not available 03/19/20252011 2 RxNorm unrec ogniz ed react ion (text : Other (See Comme nts), code: OTH) (from [facility]) Not Available michelle - External Data Service [...] Updated DateTime 5 175.26 cm 23.7 kg/m2 50426.9 3 g 60 /min 99 % 116/78 [...] ICD10 Code Diagnosis IMO Codes Diagnosis Note [id number] Aguilar Taylor DO [facility] Internal Medicine [address],[place] [address] 02/26/2025 13:42:26 03/01/2025 09:02:15 Depression screening 416136173 Z13.31 Hypoglycemia 380959032 E 16.2 52034 given freestye kartik to monitor sugar and see what happens with these episodes Health Concerns Section Related Observation LastModified by Organization Detai ls LastModified Time None Recorded Concern Status LastModified by Organization Details LastModified Time None Recorded Payers Encounter Date Sequence Insurance Name Policy Number Policy Levine Covered Member ID Levine Member ID Guarantor Name 02/26/2025 1 [employer] OF [facility] [id number] Sangita Paniagua [id number] [place] 02/26/2025 2 [facility]: MEDICAR E PPO BLUE (MEDICARE REPLACEMENT PPO) [id number] Tor[place] Paniagua [id number] [place] [place] Notes Date Note Type Note Provider Name a nd Address Organization Details Recorded Time 02/26/2025 text/html ROS as noted in the HPI hewre for rechk and is doing th e same he has been seen and eval by the endocrine Aguilar Taylor DO [address] [place] [address], [address], [facility] Medicine 02/26/2025 14:26:10
== END 2025-04-26 09:13 | disposition home or self-care (01) ==
LOC: HO.LAB 09:12
PROVIDERS: Physician Assistant; PCP Internal Medicine; Visit Provider Internal Medicine
DX: E16.2 Hypoglycemia, unspecified (principal)
CPT/HCPCS: 36415; 82024; 82533